=== PATIENT | male | born 1945 | race Caucasian/White ===

== ENCOUNTER → 2017-12-08 06:38 | Outpatient (CLI) | payer MEDICARE, SELFPAY ==
--- NOTE | 2017-12-08 09:33 | STRESSREP ---
Stress Test Report Pharmacologic myocardial perfusion stress test. 72-year-old man with a history of chest pain. Stress protocol: Resting EKG demonstrates sinus bradycardia with a rate of 56 bpm. Resting blood pressure is 140/100 mmHg. 0.4 mg regadenoson was infused per usual protocol followed by rapid intravenous saline flush injection. Continuous EKG monitoring was performed. Patient maintained sinus rhythm throughout the recording. The maximum heart rate attained was 75 bpm which was 50% maximum predicted heart rate. At rest there were no ST or T-wave changes noted suggest abnormal flow reserve at peak infusion no ST or T-wave changes were noted suggest abnormal flow reserve. No clinical angina was noted. Resting blood pressure is 144/100 final blood pressure 164/90 mmHg. Myocardial perfusion protocol: 14.8 mCi of technetium 99m sestamibi was injected at rest. 0.4 mg regadenoson was infused per usual protocol. Peak infusion 45.0 mCi of technetium 99m sestamibi was injected stress images were obtained. Stress and rest images were reconstructed and compared in the short axis vertical long and horizontal long axis. Gated images were also obtained pre- Perfusion SPECT analysis. Review of the stress images demonstrate normal uptake of tracer noted in all areas of the myocardium. The resting images similarly demonstrate normal uptake of tracer noted in all areas of the myocardium. No areas of reversibility are noted suggest ischemia. Gated SPECT analysis. The gated ejection fraction is noted to be 69%. Conclusion: Normal pharmacologic myocardial perfusion stress test. Preserved ejection fraction.
== END ==
PROVIDERS: Family Provider Family Medicine; PCP Family Medicine
DX: R07.89 Other chest pain (principal); I10 Essential (primary) hypertension
CPT/HCPCS: 78452; 93017; A9500; A4216; J2785

== ENCOUNTER 2020-11-28 12:43 | Outpatient (RCR) | payer MEDICARE, SELFPAY ==
[2020-11-28] MEDS: COVID-19 VACC, MRNA(PFIZER)/PF 30 MCG/0.3 ML SYRINGE IM (10:27)
[2020-12-19] MEDS: COVID-19 VACC, MRNA(PFIZER)/PF 30 MCG/0.3 ML SYRINGE IM (10:20)
== END 2021-02-25 23:59 ==
LOC: IMMUN 12:43
PROVIDERS: PCP Family Medicine; Referring Provider Family Medicine; Visit Provider Family Medicine
DX: Z23 Encounter for immunization (principal)
CPT/HCPCS: 0001A; 0002A; 91300

== ENCOUNTER 2022-02-04 12:56 | Inpatient (IN) | payer MEDICARE, SELFPAY ==
[2022-02-04 12:57] VITALS: BP 166/76; PULSE 59; TEMP 36.3; O2SAT 99; BMI 30.6
--- NOTE | 2022-02-04 13:53 | MRI_ITS ---
HISTORY: radiculopathy, low back pain, and right hip pain TECHNIQUE: Multiplanar and multisequence MR images of the lumbar spine were obtained without intravenous contrast. 128 images. COMPARISON: None. FINDINGS: VERTEBRAE: Vertebral body heights maintained. Small hemangioma in the L3 vertebral body. Degenerative endplate changes at multiple levels particularly L4-5. ALIGNMENT: No significant anterior or posterior subluxation. CONUS: Normal morphology and position of the conus at the lower L1 level. INTERVERTEBRAL DISCS: L1-2: No significant posterior disc herniation, central canal stenosis, or foraminal narrowing. L2-3: Minimal disc bulge with facet arthropathy resulting in minimal narrowing of the thecal sac. L3-4: Small left posterior synovial cyst. Mild disc bulge with facet arthropathy resulting in mild central canal stenosis and left foraminal narrowing. L4-5: Small left posterior synovial cyst. Moderate disc bulge with facet arthropathy resulting in moderate central canal stenosis with mild bilateral foraminal narrowing. L5-S1: Mild disc bulge with facet arthropathy resulting in mild central canal stenosis and very mild bilateral foraminal narrowing. SOFT TISSUES: Right posterior paraspinal soft tissue edema at the level of the sacral spine, incompletely imaged. MRI/Spine Lumbar (Routine) IMPRESSION: Multilevel degenerative disc disease with moderate spinal canal stenosis of L4-5 as above. Incompletely imaged soft tissue edema posterior to the right sacrum. Electronically Signed: Catrachita Forbes MD at 16:06 EDT ,
--- NOTE | 2022-02-04 13:57 | ED.VIS.BACK ---
HPI History of Present Illness Chief Complaint: Back Informant: patient and spouse/S.O. Onset/Context/Timing Onset: Weeks Context: Gradual Onset Timing: Continuous Quality: Sharp and Aching Location: Lumbar Current Severity: Moderate Maximum Severity: Severe Worsened by: improves with Movement Relieved by: Nothing Associated Symptoms Associated Symptoms: Radiation to Right Leg; Negative for Numbness, Tingling, Radiation to Left Leg, Fever, Abdominal Pain, Dysuria, Unable to Ambulate, Unable to Transfer, Urinary Retention, Urinary Incontinence, Constipation and Fecal Incontinence Narrative Narrative: 76-year-old male history of chronic back pain sees a interventional pain physician in [facility]. He has had prior injections. 2013 he had an MRI which showed spinal stenosis and arthritic changes. States the pain got worse the last several weeks he has been on a Medrol Dosepak and did not seem to get helping him any. He denies any fever. He denies any bowel or bladder incontinence or retention. Said the pain is worsening and is now going down the right leg all the way down to his heel worse with movement. It is so painful he is unable to walk. Prior similar symptoms: Yes Recent Illness/Hospitalization: No PFSH PFSH Home Medications fexofenadine mg 02/04/22 [History Last Taken Unknown] fluticasone propionate INTRANASAL 02/04/22 [History Last Taken Unknown] labetalol 02/04/22 [History Last Taken Unknown] losartan-hydrochlorothiazide tab 02/04/22 [History Last Taken Unknown] methylprednisolone 02/04/22 [History Last Taken Unknown] nabumetone mg 02/04/22 [History Last Taken Unknown] potassium chloride meq PO 02/04/22 [History Last Taken Unknown] rosuvastatin mg 02/04/22 [History Last Taken Unknown] tramadol mg 02/04/22 [History Last Taken Unknown] Allergy/AdvReac Type Severity Reaction Status Date / Time No Known Allergies Allergy Verified 02/04/22 12:57 Social History Smoking Status: Former smoker ROS ROS ED ROS Narrative Denies recent illness. Back pain. Review of Systems ROS Unobtainable: Denies due to encephalopathy Constitutional Constitutional ED: Denies chills or fever(s) Eyes Eyes: Denies change in vision ENT ENT ED: Denies ear pain Cardiovascular Cardiovascular: Denies chest pain Respiratory/Chest Respiratory/Chest: Denies dyspnea Gastrointestinal Gastrointestinal: Denies abdominal pain, diarrhea, nausea or vomiting Genitourinary Genitourinary ED: Denies dysuria or hematuria Musculoskeletal Musculoskeletal: Reports back pain; Denies myalgias Integumentary Denies rash Neurologic Neurologic: Denies headache(s) Psychiatric Psychiatric: Denies depression Endocrine Endocrinology: Denies polyuria Hematologic/Lymphatic Hematologic/Lymphatic: Denies easy bruising Allergic/Immunologic Allergic/Immunologic ED: Denies urticaria EXAM Physical Exam Narrative Exam Narrative: 76-year-old male no acute distress. Vital signs stable afebrile. H EENT exam unremarkable. Neck nontender no lymphadenopathy. Lungs clear to auscultation bilaterally. Heart regular rhythm no murmur. Abdomen is soft nontender. Moving all 4 extremities. Calves are nontender no edema no cords. Patient has 5/5 provider engagement executive strength. Dorsi plantarflexion intact. Back he has tenderness over his lumbar spine lower and his right SI joint. He is a positive straight leg raise on the right about 30 degrees negative on the left. No cauda equina. No saddle anesthesia. Normal motor strength and sensation. Neurologic exam unremarkable. Const Vital Signs: 02/04/22 12:57 02/04/22 14:31 Temperature 97.4 F L Temperature Source Temporal Pulse Rate 59 L Blood Pressure 166/76 H 171/94 H Blood Pressure Mean 106 119 Pulse Ox 99 Oxygen Delivery Method Room Air Positive well nourished, well developed and obese; Negative for cachectic, contractures or unkempt General Appearance ED: well developed and NAD; Negative for unkempt, cachectic, contractures or pallor Nutritional Appearance: obese; Negative for cachectic HEENT Reports moist mucous membranes Negative for trauma or tenderness Eyes PERRL and EOMs intact bilaterally General Eye ED: Negative for pale conjunctiva or scleral icterus Neck no lymphadenopathy, supple and no JVD General: Negative for tenderness Resp normal respiratory effort and clear to auscultation bilaterally Effort and Inspection: Negative for pain with movement or other Auscultation: Negative for rales or rhonchi Cardio regular rate, regular rhythm, S1 normal heart sound, S2 normal heart sound and no murmurs GI normal to inspection, nondistended, normoactive bowel sounds, soft to palpation, non-tender, non-distended and no masses Palpation: Negative for tender, guarding or rebound tenderness present Back/Spine normal to inspection and no thoracic nor lumbar tenderness Back/Spine Narrative: Lumbar tenderness. Right SI tenderness. Straight leg raise on the right at 30 degrees General Back: Negative for CVA tenderness or scar(s) Cervical Spine: Negative for cervical spine tenderness and Negative for paracervical muscle tenderness Thoracic Spine / Upper Back: Negative for paraspinal muscle tenderness Lumbar Spine / Lower Back: straight leg raise positive right; Negative for straight leg raise negative bilaterally Extremity normal to inspection General Extremety ED: Negative for edema or tenderness General Extremity: Negative for edema Neuro oriented x3 and no sensory deficits noted Sensorium / Orientation: alert; Negative for confused, lethargic or stuporous Motor Exam: strength 5/5 throughout Psych mental status grossly normal Appearance: Negative for unkempt Attitude: No agitated Mood & Affect: Negative for depressed or tearful Skin no rashes or lesions noted and no wounds General Skin Exam: Negative for jaundice or pallor MDM MDM MDM Narrative Medical decision making narrative: 76-year-old male with acute on chronic back pain that is worsening over the last several weeks. Now to the point he cannot walk. He has a right leg radiculopathy about 30 degrees. He will be medicated with morphine and Zofran. MRI scheduled around 3 PM. Repeat exam patient's pain is under control DREZ morphine. He still has significant pain if he moves. He is too uncomfortable to walk. He does have motor strength in both feet he has dorsi and plantar flexion. He has normal sensation in his thighs. He has no cauda equina. He will need to be admitted for pain control and then have a consultation with spine surgery to determine a treatment plan. MRI shows multiple level degenerative disc disease with spinal canal stenosis. Radiography Diagnostic Testing: Clinical Impression(s) from Imaging Studies Lumbar Spine MRI 02/04/22 13:53 IMPRESSION: Multilevel degenerative disc disease with moderate spinal canal stenosis of L4-5 as above. Incompletely imaged soft tissue edema posterior to the right sacrum. Electronically Signed: Catrachita Forbes MD at 16:06 EDT Reading Location ID and State: [facility] / [place] Tel , Service support , Discharge Plan Dx/Rx/DC Orders Clinical Impression: Back pain, Degenerative disc disease, Spinal stenosis Disposition Disposition: Acute Care Hospital [facility]
[2022-02-04] MEDS: morphine 8 MG/ML Syringe IV (14:27)
[2022-02-04] MEDS: Ondansetron 4 MG/2 ML Vial IV (14:27)
[2022-02-04 14:31] VITALS: BP 171/94
[2022-02-04 17:04] VITALS: BP 184/97; PULSE 65
--- NOTE | 2022-02-04 17:24 | PCM.HP.STD ---
Documented by User: Abilio CODY 02/04/22 17:51 HPI - General General Date of Admission: 02/04/22 Date of Service: 02/04/22 Chief Complaint: Intractable back pain HPI Narrative QUINTIN ALBRIGHT is a 76-year-old male who presents to the ED at [facility] on 02/04/2022 with a chief complaint of intractable back pain. Patient has had a history of spinal stenosis since 2013, for which she follows with his plate painter apprentice Dr. Soares. Patient was evaluated by a a surgeon at the time of his initial diagnosis, and was determined not to need surgery at that time and that pain management would suffice. Patient follows with his plate painter apprentice for periodic spinal injections, as well as taking nabumetone, methylprednisolone and tramadol at home. Patient reports that this has been his chronic pain regimen for a while and that usually it works at managing his pain. Patient reports that about mid December he has had progressively worsening back pain, which has progressed to the point where he cannot walk today. Patient denies any difficulties with urination or defecation. Patient denies any saddle anesthesia. Patient does have normal sensation and motor strength in the lower extremities bilaterally, but does have positive straight leg raise on the right. Straight leg raise negative on the left. Vital signs stable and patient is afebrile. MRI obtained in ED demonstrated multilevel degenerative disease with moderate spinal canal stenosis of L4-L5. [facility] Medical History (Updated 02/04/22 @ 17:39 by Abilio CODY) Carpal tunnel syndrome Former smoker GERD (gastroesophageal reflux disease) Hypertension Irregular heart beat Osteoarthritis Spinal stenosis at L4-L5 level Home Medications fexofenadine 180 mg PO DAILY 02/04/22 [History Last Taken 02/04/22] fluticasone propionate 1 spray INTRANASAL DAILY 02/04/22 [History Last Taken 02/04/22] labetalol 100 mg PO BID 02/04/22 [History Last Taken 02/04/22] losartan-hydrochlorothiazide 1 tab PO DAILY 02/04/22 [History Last Taken 02/04/22] methylprednisolone 4 02/04/22 [History Last Taken 02/04/22] nabumetone 750 mg PO DAILY 02/04/22 [History Last Taken 02/04/22] ondansetron HCl 4 mg PO Q8H PRN PRN 02/04/22 [History Last Taken 02/04/22] potassium chloride 20 meq PO DAILY 02/04/22 [History Last Taken 02/04/22] rosuvastatin 5 mg PO QHS 02/04/22 [History Last Taken 02/03/22] tramadol 50 mg PO Q8H PRN PRN 02/04/22 [History Last Taken 02/04/22] Allergy/AdvReac Type Severity Reaction Status Date / Time No Known Allergies Allergy Verified 02/04/22 12:57 Family History Father Diabetes Mother Dementia Aneurysm Sister Diabetes Surgical History (Updated 02/04/22 @ 17:39 by Abilio CODY) H/O abdominal surgery History of carpal tunnel surgery Social History (Updated 02/04/22 @ 17:40 by Abilio CODY) Smoking Status: Former smoker alcohol intake: former substance use type: does not use ROS Constitutional Constitutional: Denies anorexia, change in weight, chills, fatigue, fever(s), malaise, night sweats, weakness or other Eyes Eyes: Denies blurry vision, change in eye color, change in vision, discharge from eye(s), double vision, erythema, eye pain, loss of vision or other ENT HEENT: Denies abnormal hearing, dysphagia, ear pain, epistaxis, headache(s), hearing loss, nasal congestion, nasal discharge, post nasal drip, sinus pressure, sore throat or other Cardiovascular Cardiovascular: Denies chest pain, claudication, dyspnea on exertion, edema, lightheadedness, orthopnea, palpitations, paroxysmal nocturnal dyspnea, rapid heart rate, syncope or other Respiratory/Chest Respiratory/Chest: Denies cough, dyspnea, excessive phlegm production, hemoptysis, productive cough, shortness of breath at rest, shortness of breath with exertion, wheezing or other Gastrointestinal Gastrointestinal: Denies abdominal pain, coffee ground emesis, constipation, diarrhea, dyspepsia, hematemesis, hematochezia, loose stools, melena, nausea, vomiting or other Genitourinary Genitourinary: Denies burning urination, difficulty urinating, dysuria, hematuria, nocturia, urinary frequency, urinary hesitancy, urinary incontinence, urinary urgency or other Musculoskeletal Musculoskeletal: Reports back pain and joint stiffness; Denies arthralgias, joint pain, joint swelling, myalgias, neck pain or other Neurologic Neurologic: Denies abnormal gait, abnormal speech, confusion, disequilibrium, dizziness, focal weakness, headache(s), numbness, paresthesias, seizure-like activity, seizures, syncope, tingling, tremor(s) or other Psychiatric Psychiatric: Denies anxiety, depression, homicidal ideation, suicidal ideation or other Endocrine Endocrinology: Denies change in body appearance, cold intolerance, excessive sweating, heat intolerance, polydipsia, polyuria or other Hematologic/Lymphatic Hematologic/Lymphatic: Denies anemia, easy bleeding, easy bruising, lymphadenopathy or other Allergic/Immunologic Allergic/Immunologic: Denies rhinitis, hives, eczemia, asthma or other Vital Signs Vital Signs Vital Signs: 02/04/22 12:57 02/04/22 14:31 02/04/22 17:04 Temperature 97.4 F L Temperature Source Temporal Pulse Rate 59 L 65 Blood Pressure 166/76 H 171/94 H 184/97 H Blood Pressure Mean 106 119 126 Pulse Ox 99 Oxygen Delivery Method Room Air Weight Weight: 213 lb 10.047 oz Body Mass Index (BMI) 30.6 Physical Exam Const alert and oriented x3 General Appearance: cooperative HEENT normocephalic, head/scalp atraumatic and hearing grossly normal bilaterally Eyes PERRL, EOMs intact bilaterally and conjunctivae normal Neck no lymphadenopathy, supple and no JVD Resp normal respiratory effort, no retractions and no use of accessory muscles Cardio regular rate, regular rhythm and no JVD GI normal to inspection, nondistended, normoactive bowel sounds and soft to palpation Extremity Extremity Narrative: Onset of straight leg raise on the right, negative on the left. Skin no rashes or lesions noted, no wounds and skin turgor normal Neuro CN's II-XII intact bilaterally Neuro Narrative: Normal sensation and motor strength on the lower extremities bilaterally. Psych affect normal Results Radiology Impression Lumbar Spine MRI 02/04/22 13:53 IMPRESSION: Multilevel degenerative disc disease with moderate spinal canal stenosis of L4-5 as above. Incompletely imaged soft tissue edema posterior to the right sacrum. Electronically Signed: Catrachita Forbes MD at 16:06 EDT , Assessment & Plan Assessment/Plan (1) Back pain: (2) Degenerative disc disease: (3) Lumbar disc herniation: (4) Spinal stenosis: PLAN: Patient is a 76-year-old male who presented to the ED at [facility] on 02/04/2022 with a chief complaint of intractable back pain. Patient will be admitted for evaluation and management of spinal stenosis. 1) intractable back pain/L4-L5 spinal stenosis Has been managed by Dr. Soares of [facility] since 2013 for L4-L5 spinal stenosis. Usually managed well with spinal injections and at home regimen,, although for the past 6 weeks back pain has gotten progressively worse. Presents to ED today with inability to walk. MRI of the lumbar spine demonstrates multilevel degenerative disease with moderate spinal canal stenosis of L4-L5. Plan; admit to [facility], consult Dr. Curran, initiate Tylenol, initiate gabapentin, initiate Toradol, initiate lidocaine patch, initiate as needed medications to include: Medrol Dosepak, morphine, oxycodone, Restoril, Zanaflex, CBC and CMP in a.m., PT/OT eval ordered, case management consult ordered. 2) HTN Elevated, continue home labetalol and losartan/hydrochlorothiazide. As needed hydralazine ordered. 3) hyperlipidemia Continue statin. 4) seasonal allergies Continue fexofenadine and fluticasone propionate. CODE STATUS: Full code DVT prophylaxis: Lovenox Patient seen by Abilio Mata PA-C, under the supervision of Dr. Mitchell. Time spent in patient care: 25 minutes. Documented by User: Dr. Kavita Mitchell MD 02/04/22 18:16 HPI - General General Date of Admission: 02/04/22 [facility] Medical History (Updated 02/04/22 @ 17:39 by Abilio CODY) Carpal tunnel syndrome Former smoker GERD (gastroesophageal reflux disease) Hypertension Irregular heart beat Osteoarthritis Spinal stenosis at L4-L5 level Home Medications fexofenadine 180 mg PO DAILY 02/04/22 [History Last Taken 02/04/22] fluticasone propionate 1 spray INTRANASAL DAILY 02/04/22 [History Last Taken 02/04/22] labetalol 100 mg PO BID 02/04/22 [History Last Taken 02/04/22] losartan-hydrochlorothiazide 1 tab PO DAILY 02/04/22 [History Last Taken 02/04/22] methylprednisolone 4 02/04/22 [History Last Taken 02/04/22] nabumetone 750 mg PO DAILY 02/04/22 [History Last Taken 02/04/22] ondansetron HCl 4 mg PO Q8H PRN PRN 02/04/22 [History Last Taken 02/04/22] potassium chloride 20 meq PO DAILY 02/04/22 [History Last Taken 02/04/22] rosuvastatin 5 mg PO QHS 02/04/22 [History Last Taken 02/03/22] tramadol 50 mg PO Q8H PRN PRN 02/04/22 [History Last Taken 02/04/22] Allergy/AdvReac Type Severity Reaction Status Date / Time No Known Allergies Allergy Verified 02/04/22 12:57 Family History Father Diabetes Mother Dementia Aneurysm Sister Diabetes Surgical History (Updated 02/04/22 @ 17:39 by Abilio CODY) H/O abdominal surgery History of carpal tunnel surgery Social History (Updated 02/04/22 @ 17:40 by Abilio CODY) Smoking Status: Former smoker alcohol intake: former substance use type: does not use
[2022-02-04] MEDS: Morphine 2 MG/ML Syringe IV (17:52)
[2022-02-04 17:53] VITALS: BP 168/110; PULSE 76; RESP 14; TEMP 36.8; O2SAT 99
[2022-02-04] MEDS: 0.9% Normal Saline 1,000 ML 100 ML IV (20:00)
[2022-02-04] MEDS: 0.9% Saline Lock 10 ML Syringe IV (21:36)
[2022-02-04] MEDS: Ketorolac 15 MG/ML Vial IV (21:37)
[2022-02-04 21:54] LABS: Absolute Lymphocyte Count 0.82 X10^3/uL (0.83-4.51); Absolute Neutrophil Count 8.5 X10^3/uL (2.0-7.7); Basophil# 0.02 X10^3/uL; Basophil% 0.2 % (0-1); Hematocrit 42.9 % (40-54); Hemoglobin 14.9 g/dL (13.0-16.5); Lymphocyte # 0.82 X10^3/ul (0.83-4.51); Lymphocyte % 8.1 % (19-41); Mean Corp Hgb Conc 34.7 g/dL (32-36); Mean Corpuscular Hgb 29.5 pg (27.0-32.0); Mean Platelet Vol. 9.4 fl (6.2-12.0); Monocyte# 0.68 X10^3/uL; Monocyte% 6.7 % (0-10); NRBC Flagged by Analyzer 0 % (0-5); Neutrophil # 8.54 X10^3/uL (2.7-7.7); Neutrophil % 84.4 % (47-70); Platelet Count 301 K/mm3 (150-450); RBC Distribution Width CV 11.9 % (11.6-14.6); RBC Distribution Width SD 35.9 fl (35.1-43.9); Red Blood Count 5.05 M/mm3 (4.6-6.2); White Blood Count 10.1 K/mm3 (4.4-11.0)
[2022-02-04 22:09] LABS: ALB/GLOB Ratio 1.2 RATIO (0.9-2.4); AST(SGOT) 25 U/L (15-37); Alanine Aminotransfer ALT/SGPT 81 U/L (16-61); Albumin, Serum 3.6 g/dL (3.2-5.0); Alkaline Phosphatase 85 U/L (45-117); Anion Gap 4 (5-15); BUN 22 mg/dL (7-18); BUN/Creat Ratio 23.7 RATIO (10-20); Calcium,Total 9.4 mg/dL (8.5-10.1); Chloride 106 mmol/L (98-107); Creatinine, Serum 0.93 mg/dL (0.70-1.30); EST Glomerular Filtration Rate 85 mL/min (>60); Est Glom Filt Rate - Afr Amer 102 mL/min (>60); Estimated Creatinine Clearance 71.95 ml/min; Glucose 128 mg/dL (74-106); Potassium 3.9 mmol/L (3.5-5.1); Protein, Total 6.6 g/dL (6.4-8.2); Sodium Level 141 mmol/L (136-145)
[2022-02-04] MEDS: MethylPREDNISolone DosePak 4 MG BOX PO (23:14)
[2022-02-05] MEDS: oxyCODONE 5 MG Tablet PO ×2 (01:05→10:43)
[2022-02-05] MEDS: tiZANidine HCl 2 MG Tablet PO ×3 (01:06→20:15)
[2022-02-05] MEDS: Acetaminophen 325 MG Tablet 650 MG PO ×2 (01:06→10:43)
[2022-02-05 04:23] VITALS: BP 156/83; PULSE 64; RESP 16; TEMP 36.8; O2SAT 96
[2022-02-05] MEDS: Ketorolac 15 MG/ML Vial IV ×3 (05:11→22:00)
[2022-02-05 05:31] LABS: Absolute Lymphocyte Count 0.59 X10^3/uL (0.83-4.51); Absolute Neutrophil Count 8.1 X10^3/uL (2.0-7.7); Basophil# 0.02 X10^3/uL; Basophil% 0.2 % (0-1); Hematocrit 40.7 % (40-54); Hemoglobin 14.1 g/dL (13.0-16.5); Lymphocyte # 0.59 X10^3/ul (0.83-4.51); Lymphocyte % 6.6 % (19-41); Mean Corp Hgb Conc 34.6 g/dL (32-36); Mean Corpuscular Hgb 29.1 pg (27.0-32.0); Mean Corpuscular Volume 84.1 fL (80-94); Mean Platelet Vol. 9.6 fl (6.2-12.0); Monocyte# 0.27 X10^3/uL; NRBC Flagged by Analyzer 0 % (0-5); Neutrophil # 8.05 X10^3/uL (2.7-7.7); Neutrophil % 89.6 % (47-70); POSITIVE DIFFERENTIAL YES; Platelet Count 278 K/mm3 (150-450); RBC Distribution Width CV 11.9 % (11.6-14.6); Red Blood Count 4.84 M/mm3 (4.6-6.2)
[2022-02-05 05:42] LABS: Differential Indicated SCAN CRITERIA MET
[2022-02-05 06:13] LABS: ALB/GLOB Ratio 1.2 RATIO (0.9-2.4); AST(SGOT) 36 U/L (15-37); Alanine Aminotransfer ALT/SGPT 89 U/L (16-61); Albumin, Serum 3.3 g/dL (3.2-5.0); Alkaline Phosphatase 75 U/L (45-117); Anion Gap 3 (5-15); BUN 25 mg/dL (7-18); BUN/Creat Ratio 27.2 RATIO (10-20); Calcium,Total 8.8 mg/dL (8.5-10.1); Chloride 106 mmol/L (98-107); Creatinine, Serum 0.92 mg/dL (0.70-1.30); EST Glomerular Filtration Rate 85 mL/min (>60); Est Glom Filt Rate - Afr Amer 103 mL/min (>60); Estimated Creatinine Clearance 72.74 ml/min; Globulin 2.8 g/dL (2.2-4.2); Glucose 137 mg/dL (74-106); Potassium 4.1 mmol/L (3.5-5.1); Protein, Total 6.1 g/dL (6.4-8.2); Sodium Level 139 mmol/L (136-145)
[2022-02-05] MEDS: MethylPREDNISolone DosePak 4 MG BOX PO ×4 (08:19→21:59)
[2022-02-05] MEDS: Lidocaine 5% Patch 2 PATCH TOPICAL (08:20)
[2022-02-05] MEDS: Enoxaparin 40 MG/0.4 ML Syringe SC (08:20)
[2022-02-05] MEDS: Gabapentin 100 MG Capsule PO ×3 (08:25→16:37)
--- NOTE | 2022-02-05 09:26 | PCM.PN.HOSP ---
Documented by User: Josie Martin NP-C 02/05/22 09:35 Subjective Subjective Seen and examined. Patient continues to report pain despite pain medication regimen. Awaiting Dr. Curran to see patient for further evaluation for possible surgical needs. Patient states that he is not as uncomfortable as long as he is laying flat and does not move a lot. Objective Data Objective Data Vital Signs: Vital Signs Temp Pulse Resp BP Pulse Ox 98.2 F 64 16 156/83 H 96 02/05/22 04:23 02/05/22 04:23 02/05/22 04:23 02/05/22 04:23 02/05/22 04:23 Oxygen Delivery Method Room Air Weight: 209 lb 10.554 oz Body Mass Index (BMI) 30.0 Intake & Output: Intake and Output for Last 24 Hours 02/03/22 02/04/22 02/05/22 23:59 23:59 23:59 Intake Total 950 / 950 Output Total 500 / 500 Balance -500 / -500 950 / 950 Lab / Micro Data Result Diagrams: 02/05/22 04:57 02/05/22 04:57 Labs: Laboratory Results - last 24 hr 02/04/22 21:30: WBC 10.1, RBC 5.05, Hgb 14.9, Hct 42.9, MCV 85.0, MCH 29.5, MCHC 34.7, RDW Std Deviation 35.9, RDW Coeff of [place] 11.9, Plt Count 301, MPV 9.4, Immature Gran % (Auto) 0.600, Neut % (Auto) 84.4 H, Lymph % (Auto) 8.1 L, [place] % (Auto) 6.7, Eos % (Auto) 0.0, Baso % (Auto) 0.2, Absolute Neuts (auto) 8.5 H, Absolute Lymphs (auto) 0.82 L, Nucleated RBC % 0 02/04/22 21:30: Sodium 141, Potassium 3.9, Chloride 106, Carbon Dioxide 31.0, Anion Gap 4 L, BUN 22 H, Creatinine 0.93, Estim Creat Clear Calc 71.95, Est GFR (MDRD) Af Amer 102, Est GFR (MDRD) Non-Af 85, BUN/Creatinine Ratio 23.7 H, Glucose 128 H, Calcium 9.4, Total Bilirubin 0.70, AST 25, ALT 81 H, Alkaline Phosphatase 85, Total Protein 6.6, Albumin 3.6, Globulin 3.0, Albumin/Globulin Ratio 1.2 02/05/22 04:57: WBC 9.0, RBC 4.84, Hgb 14.1, Hct 40.7, MCV 84.1, MCH 29.1, MCHC 34.6, RDW Std Deviation 36.0, RDW Coeff of [place] 11.9, Plt Count 278, MPV 9.6, Immature Gran % (Auto) 0.600, Neut % (Auto) 89.6 H, Lymph % (Auto) 6.6 L, [place] % (Auto) 3.0, Eos % (Auto) 0.0, Baso % (Auto) 0.2, Absolute Neuts (auto) 8.1 H, Absolute Lymphs (auto) 0.59 L, Nucleated RBC % 0 02/05/22 04:57: Sodium 139, Potassium 4.1, Chloride 106, Carbon Dioxide 30.0, Anion Gap 3 L, BUN 25 H, Creatinine 0.92, Estim Creat Clear Calc 72.74, Est GFR (MDRD) Af Amer 103, Est GFR (MDRD) Non-Af 85, BUN/Creatinine Ratio 27.2 H, Glucose 137 H, Calcium 8.8, Total Bilirubin 0.50, AST 36, ALT 89 H, Alkaline Phosphatase 75, Total Protein 6.1 L, Albumin 3.3, Globulin 2.8, Albumin/Globulin Ratio 1.2 Radiography Diagnostic Testing: Radiology Impression Lumbar Spine MRI 02/04/22 13:53 IMPRESSION: Multilevel degenerative disc disease with moderate spinal canal stenosis of L4-5 as above. Incompletely imaged soft tissue edema posterior to the right sacrum. Electronically Signed: Catrachita Forbes MD at 16:06 EDT , Physical Exam Const alert, oriented x3 and no apparent distress HEENT head/scalp atraumatic and moist oral mucous membranes Head and Scalp: normocephalic Eyes conjunctivae normal and no scleral icterus Neck supple Resp normal respiratory effort and clear to auscultation bilaterally Effort and Inspection: able to speak in complete sentences and symmetric chest movement Cardio regular rate, regular rhythm, S1 normal heart sound and S2 normal heart sound GI normal to inspection, nondistended, normoactive bowel sounds, soft to palpation and non-tender Extremity normal to inspection and normal capillary refill Peripheral Pulses: Yes pulses 2+ throughout Neuro oriented x3, no focal motor deficits and no sensory deficits noted Neuro Narrative: Patient has positive right straight leg raise Speech: speech normal Assessment & Plan Assessment/Plan (1) Back pain: QUALIFIERS: Back pain laterality: right Back pain location: low back pain Chronicity: chronic Sciatica laterality: sciatica of right side Sciatica presence: with sciatica Qualified Code(s): M54.41 - Lumbago with sciatica, right side; G89.29 - Other chronic pain (2) Degenerative disc disease: QUALIFIERS: Spinal region: lumbosacral Qualified Code(s): M51.37 - Other intervertebral disc degeneration, lumbosacral region (3) Spinal stenosis: QUALIFIERS: Neurogenic claudication status: unspecified Spinal region: lumbar Qualified Code(s): M48.061 - Spinal stenosis, lumbar region without neurogenic claudication PLAN: 1. Intractable back pain secondary to L4-L5 spinal stenosis -Continue Tylenol, gabapentin, Toradol, lidocaine patch, Medrol Dosepak scheduled along with as needed morphine, oxycodone, Restoril, Zanaflex for pain management -Patient continues to report pain, states lidocaine patches were just applied -Dr. Curran consulted -CBC and CMP daily -PT and OT to eval and treat 2. Hypertension elevated likely secondary to pain -Continue home labetalol and losartan/hydrochlorothiazide. -As needed hydralazine ordered 3. Hyperlipidemia -Continue statin DVT prophylaxis-Lovenox This patient was seen by Josie Martin NP-C under the supervision of Dr. Mayers. 12 minutes spent in clinical coordination of patient's plan of care. Documented by User: Dr. Vahe Mayers MD 02/05/22 11:51 Subjective Subjective Patient has history of chronic back pain, lumbar spinal stenosis primarily L4-L5 with radiation to the right lower extremity to right great toe. He complained of 10 out of 10 pain get exacerbated by movement, rotation of his spine flexion or extension. He is to walk from 1 room to another with support. Currently 04/29. He has been getting spinal injections from pain management for last [address] Curran is consulted Objective Data Lab / Micro Data Result Diagrams: 02/05/22 04:57 02/05/22 04:57 Physical Exam Narrative Patient has history of one-time transient A. fib. General: Alert, Oriented x3, Cooperative, in moderate to severe pain HEENT: Atraumatic, PERRLA, EOMI, Normocephalic Oral: No Gingival or Mucosal Lesions/ Ulcerations Neck: Supple, No JVD, Negative Carotid Bruits Lungs: Air entry diminished in bilateral lung bases. No crepitation/rhonchi Cardiovascular: Regular rate, Regular Rhythm, Normal S1, Normal S2, No murmurs Abdomen: Bowel Sounds Present, Soft, Non Tender, Non-Distended : No renal angle tenderness. No suprapubic tenderness. Extremities: No edema, Capillary Refill Less than 3 Seconds Skin: No rashes, No breakdown Musculoskeletal/spine: Tenderness over L4-L5. Painful movement of lateral rotation flexion or extension. Pain distribution over right L4 nerve distribution. Right lower extension, flexion, right ankle flexion extension inversion eversion 4+/5. Right knee and hip extension 4/5 mainly due to pain and back spasm Neurological: Cranial nerves II-XII grossly intact, DTR 2+/4 Psych/Mental Status: Flat affect. Assessment & Plan Assessment/Plan (1) Back pain: QUALIFIERS: Back pain laterality: right Back pain location: low back pain Chronicity: chronic Sciatica laterality: sciatica of right side Sciatica presence: with sciatica Qualified Code(s): M54.41 - Lumbago with sciatica, right side; G89.29 - Other chronic pain (2) Spinal stenosis: QUALIFIERS: Neurogenic claudication status: unspecified Spinal region: lumbar Qualified Code(s): M48.061 - Spinal stenosis, lumbar region without neurogenic claudication PLAN: This patient was seen in conjunction with MERCY Galindo. I have independently interviewed and examined the patient and reviewed pertinent history, examination findings, laboratory and plan of management. I have reviewed the note and agree with the documented findings with the few additional points. In brief, patient is admitted for acute on chronic lumbar spine pain, sciatica type with radiation to right lower extremity, to right great toe, over L L4-L5 nerve distribution; failed conservative management spine injection and oral pain medications. Lumbar MRI reviewed. 8 shows multilevel disc changes with moderate spinal canal stenosis at L4-L5 level with multilevel degenerative disc disease. Spine surgeon Dr. Curran is consulted. Hypertension: Patient on high dose of antihypertensive medication, losartan HCTZ 100-12.5 mg daily. Currently blood pressure is in 120s therefore losartan 25 mg ordered. Other comorbidities as mentioned above dyslipidemia Patient states he has transient A. fib but is not on any anticoagulant. Dyslipidemia I have discussed my assessment with MERCY Galindo and orders have been reviewed. Clinical Impression(s) from Imaging Studies Lumbar Spine MRI 02/04/22 13:53 IMPRESSION: Multilevel degenerative disc disease with moderate spinal canal stenosis of L4-5 as above. Incompletely imaged soft tissue edema posterior to the right sacrum. Electronically Signed: Catrachita Forbes MD at 16:06 EDT , Charges/Coding Visit Charges Inpatient E&M: 49312 Subs Hosp L2
[2022-02-05 10:23] VITALS: BP 140/72; PULSE 74; RESP 18; TEMP 36.6; O2SAT 94
--- NOTE | 2022-02-05 11:38 | CASEMGMT ---
BARON RICKS Assessment: Face to Face with pt for initial transition planning/care coordination assessment. RN CM introduced self and role at [facility], pt voices understanding and consents to assessment. Pt is A/O x4 and answers all questions appropriately at this time. Pt lying in bed writhing in pain. Pt at bedside. Care providers, pharmacy, and demographics verified/updated. Admitting Dx: acute intractable back pain PCP:Geovanny Specialists:Rodger, pain mgmt; Rola Rosas cardio at [facility] Preferred Pharmacy: [facility] Insurance: [employer] Prescription Benefit: yes LW/HPOA: Pt denies having a LW/DPOA and denies need for info regarding AD. LNOK: [place] Blough, Living Arrangements: Pt lives with in a single story house with 2 steps to enter with a rail. Pt reports he was I in ADL's prior to this hospitalization. Pt denies concerns at home. Transportation: Pt drives self and denies concerns with transportation. DME/HHC/SNF: Pt has a rollator at home but does not use. Pt denies hx of HHC or SNF stays. Pt states no concerns with going home at time of dc if he is able to walk, stand, etc. CM to follow after 's consult and plan has been established. Advised pt to ask CM if any further question/concerns/needs arise, voices understanding. Pt and pt asks for pt medical records to be faxed to at [facility]. . Pt Goal: TBD Plan: TBD
[2022-02-05] MEDS: Losartan Potassium 25 MG Tablet PO (12:12)
[2022-02-05] MEDS: Pantoprazole Sodium 40 MG Tablet PO (12:12)
[2022-02-05] MEDS: Morphine 2 MG/ML Syringe IV ×4 (12:27→23:42)
[2022-02-05] MEDS: 0.9% Saline Lock 10 ML Syringe IV ×3 (12:28→16:38)
[2022-02-05] MEDS: Ondansetron 4 MG/2 ML Vial IV (12:35)
[2022-02-05] MEDS: Potassium Chloride Oral Tablet 20 MEQ PO (16:20)
[2022-02-05] MEDS: Labetalol 100 MG Tablet PO ×2 (16:20→22:00)
[2022-02-05 16:26] VITALS: BP 158/76; PULSE 58; RESP 18; TEMP 36.7; O2SAT 95
--- NOTE | 2022-02-05 18:41 | NURSING ---
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
[2022-02-05 20:11] VITALS: BP 179/86; PULSE 65
[2022-02-05] MEDS: hydrALAZINE 20 MG/ML Vial 10 MG IV (20:11)
[2022-02-05] MEDS: Atorvastatin Calcium 10 MG Tablet PO (22:00)
[2022-02-05 22:30] VITALS: BP 143/66; PULSE 63; RESP 18; TEMP 36.6; O2SAT 96
[2022-02-06] VITALS (12 sets, daily range): BP systolic 149–167; BP diastolic 78–90; PULSE 51–66; RESP 16–18; TEMP 36.7–37.1; O2SAT 94–97
[2022-02-06] MEDS: Morphine 2 MG/ML Syringe IV ×3 (04:39→18:41)
[2022-02-06] MEDS: Ketorolac 15 MG/ML Vial IV (05:59)
[2022-02-06] MEDS: MethylPREDNISolone DosePak 4 MG BOX PO ×4 (08:47→23:22)
[2022-02-06] MEDS: Pantoprazole Sodium 40 MG Tablet PO (08:48)
[2022-02-06] MEDS: Lidocaine 5% Patch 2 PATCH TOPICAL (08:49)
[2022-02-06] MEDS: Gabapentin 100 MG Capsule PO ×3 (08:54→16:35)
[2022-02-06] MEDS: tiZANidine HCl 2 MG Tablet PO ×2 (08:54→23:32)
[2022-02-06] MEDS: oxyCODONE 5 MG Tablet PO ×3 (08:55→23:32)
[2022-02-06] MEDS: Potassium Chloride Oral Tablet 20 MEQ PO (08:55)
[2022-02-06] MEDS: hydroCHLOROthiazide 12.5mg 12.5 MG PO (08:55)
--- NOTE | 2022-02-06 09:21 | PN.HOSP_ITS ---
Documented by User: ALEX Pena 02/06/22 09:26 Subjective Subjective Patient seen and examined. Patient lying in bed no distress noted. Patient states that his pain is more manageable today than yesterday however he continues to have pain with movement. Objective Data Objective Data Vital Signs: Vital Signs Temp Pulse Resp BP Pulse Ox 98.8 F 65 18 160/85 H 95 02/06/22 04:41 02/06/22 04:41 02/06/22 04:41 02/06/22 04:41 02/06/22 04:41 Oxygen Delivery Method Room Air Weight: 209 lb 10.554 oz Body Mass Index (BMI) 30.0 Intake & Output: Intake and Output for Last 24 Hours 02/04/22 02/05/22 02/06/22 23:59 23:59 23:59 Intake Total 1730 / 2530 800 / 800 Output Total 500 / 500 900 / 1800 1300 / 1300 Balance -500 / -500 830 / 730 -500 / -500 Lab / Micro Data Result Diagrams: 02/05/22 04:57 02/05/22 04:57 Physical Exam Const alert, oriented x3 and no apparent distress General Appearance: cooperative HEENT normocephalic and head/scalp atraumatic Eyes conjunctivae normal and no scleral icterus Neck no lymphadenopathy and supple General: trachea midline Resp normal respiratory effort, no use of accessory muscles and clear to auscultation bilaterally Effort and Inspection: able to speak in complete sentences and symmetric chest movement Cardio regular rate, regular rhythm, S1 normal heart sound and S2 normal heart sound GI normal to inspection, nondistended, normoactive bowel sounds, soft to palpation and non-tender Extremity normal to inspection and normal capillary refill Extremity Narrative: Positive straight leg raise on the right, negative on the left. Skin no rashes or lesions noted, no wounds and skin turgor normal Neuro oriented x3, no focal motor deficits and no sensory deficits noted Neuro Narrative: Patient has positive right straight leg raise Speech: speech normal Psych affect normal Assessment & Plan Assessment/Plan (1) Back pain: QUALIFIERS: Back pain laterality: right Back pain location: low back pain Chronicity: chronic Sciatica laterality: sciatica of right side Sciatica presence: with sciatica Qualified Code(s): M54.41 - Lumbago with sciatica, right side; G89.29 - Other chronic pain (2) Spinal stenosis: QUALIFIERS: Neurogenic claudication status: unspecified Spinal region: lumbar Qualified Code(s): M48.061 - Spinal stenosis, lumbar region without neurogenic claudication PLAN: 1. Intractable back pain secondary to L4-L5 spinal stenosis -Continue Tylenol, gabapentin, Toradol, lidocaine patch, Medrol Dosepak scheduled along with as needed morphine, oxycodone, Restoril, Zanaflex for pain management -Patient continues to report pain however reports that it is more manageable than yesterday -Dr. Curran consulted, will see patient today around 12 -PT and OT following 2. Hypertension elevated likely secondary to pain -Continue home labetalol and losartan/hydrochlorothiazide. -As needed hydralazine ordered 3. Hyperlipidemia -Continue statin DVT prophylaxis-Lovenox This patient was seen by Josie Martin NP-C under the supervision of Dr. Mayers. 10 minutes spent in clinical coordination of patient's plan of care. Documented by User: Dr. Vahe Mayers MD 02/06/22 11:55 Subjective Subjective Patient continued to have back pain although slightly better on pain medication. Objective Data Lab / Micro Data Result Diagrams: 02/05/22 04:57 02/05/22 04:57 Physical Exam Narrative Patient has history of one-time transient A. fib. General: Alert, Oriented x3, Cooperative, in moderate to severe pain HEENT: Atraumatic, PERRLA, EOMI, Normocephalic Oral: No Gingival or Mucosal Lesions/ Ulcerations Neck: Supple, No JVD, Negative Carotid Bruits Lungs: Air entry diminished in bilateral lung bases. No crepitation/rhonchi Cardiovascular: Regular rate, Regular Rhythm, Normal S1, Normal S2, No murmurs Abdomen: Bowel Sounds Present, Soft, Non Tender, Non-Distended : No renal angle tenderness. No suprapubic tenderness. Extremities: No edema, Capillary Refill Less than 3 Seconds Skin: No rashes, No breakdown Musculoskeletal/spine: Tenderness and muscle spasm over L4-L5 and right buttock over right ischial spine. Painful movement of lateral rotation flexion or extension. Pain distribution over right L4 nerve distribution. Right lower ex tension, flexion, right ankle flexion extension inversion eversion 4+/5. Right knee and hip extension 4/5 mainly due to pain and back spasm Neurological: Cranial nerves II-XII grossly intact, DTR 2+/4 Psych/Mental Status: Flat affect. Assessment & Plan Assessment/Plan (1) Spinal stenosis: QUALIFIERS: Neurogenic claudication status: unspecified Spinal region: lumbar Qualified Code(s): M48.061 - Spinal stenosis, lumbar region without neurogenic claudication PLAN: This patient was seen in conjunction with MERYC Galindo. I have independently interviewed and examined the patient and reviewed pertinent history, examination findings, laboratory and plan of management. I have reviewed the note and agree with the documented findings with the few additional points. In brief, patient is admitted for acute on chronic lumbar spine pain, sciatica type with radiation to right lower extremity, to right great toe, over L L4-L5 nerve distribution; failed conservative management spine injection and oral pain medications. Lumbar MRI reviewed. 8 shows multilevel disc changes with modera te spinal canal stenosis at L4-L5 level with multilevel degenerative disc disease. Spine surgeon Dr. Curran is consulted. 02/06: Dr. Curran has not yet seen the patient. He is going to see in afternoon today. The patient has questions about operative management. Hypertension: Patient on high dose of antihypertensive medication, losartan HCTZ 100-12.5 mg daily. Currently blood pressure is in 120s therefore losartan 25 mg ordered. 02/06: Blood pressure systolic 150s. Increase losartan to 50 mg daily. Patient on labetalol 100 mg twice daily and losartan increased 200 mg daily. Other comorbidities as mentioned above dyslipidemia Patient states he has transient A. fib but is not on any anticoagulant. Dyslipidemia I have discussed my assessment with MERCY Galindo and orders have been reviewed. Charges/Coding Visit Charges Inpatient E&M: 10561 Subs Hosp L2
[2022-02-06] MEDS: Losartan Potassium 100 MG Tablet PO (10:05)
[2022-02-06] MEDS: Labetalol 100 MG Tablet PO ×2 (10:05→23:20)
--- NOTE | 2022-02-06 10:10 | CASEMGMT ---
BARON RICKS in to discuss VALDEZ form with patient. at bedside. RN CM explained VALDEZ form, patient/ voiced understanding. Pt with many questions. All questions answered to pt and satisfaction. Pt signed form and filed in chart. Pt provided with a copy of signed VALDEZ form.
[2022-02-06] MEDS: 0.9% Saline Lock 10 ML Syringe IV ×4 (12:00→23:46)
[2022-02-06] MEDS: Lactated Ringers 1,000 ML 30 ML IV (14:05)
--- NOTE | 2022-02-06 14:07 | CON.PCM_ITS ---
Consult Date of Consult: 02/06/22 Reason for Consult Mr. Eldridge is seen at the request of his hospitalist and with the patient's permission. He has been in the hospital since the but his pain became intractable and they had to admit him. He has had low back pain for a number of years. He even has a pain medicine management doctor that takes care of him I believe in [place]. The last time that an epidural was done however it did not help him. His pain gradually got worse and he had to go to the emergency room where he was admitted. His pain starts in the right side of his low back into his right buttocks down his thigh down his leg into the top of his foot to the big toe. He describes a perfect L5 dermatome. Oddly enough the left leg does not hurt at all. He denies any bowel or bladder dysfunction. He cannot stand or sit hardly at all. On examination he has 2+ patellar reflexes and 1+ Achilles reflexes bilaterally. He has good motor strength of all the major muscle groups of both lower extremities. He has no muscle atrophy. He has no long tract signs. Clonus is absent Babinski's are downgoing. I reviewed his MRI scan that demonstrates that he has moderate and perhaps moderate plus spinal stenosis. This is at the L4-5 level. This goes along with the description of the dermatome. I explained to the patient that I feel he probably needs surgical decompression. I was able to get a hold of Dr. Sahu and Dr. Sahu will do an epidural steroid injection today on the patient. This will try to get him some relief until I can put him on the surgery schedule. My senior systems administrator will be back on Wednesday and we will put him on the schedule as soon as we can. This is the end of consultation on Mr. Americo Mcgovern. This is Dr. Curran dictating. Okay
--- NOTE | 2022-02-06 14:54 | RAD_ITS ---
INDICATION: PAIN EXAMINATION/TECHNIQUE: 1 limited spot intraoperative films from epidural injection are presented for evaluation. Total Fluoroscopic Time: 2.6 seconds AND number of Fluoroscopic Images: 1 COMPARISON: None FINDINGS: Single frontal view fluoroscopy image from intraoperative epidural injection of the lumbar spine is significant for evaluation. Limited assessment due to single frontal view demonstrates a needle placed likely between the L4 and L5 spinous process. Contrast is likely within the epidural space. However, correlation with intraoperative report. RAD/Fluoro Guided Needle Placement IMPRESSION: Intraoperative epidural injection of lumbar spine with limited assessment. Please see intraoperative report for further details. Electronically Signed: Monster Castillo, at 8:05 EDT ,
--- NOTE | 2022-02-06 14:54 | RAD_ITS ---
INDICATION: PAIN EXAMINATION/TECHNIQUE: 1 limited spot intraoperative films from epidural injection are presented for evaluation. Total Fluoroscopic Time: 2.6 seconds AND number of Fluoroscopic Images: 1 COMPARISON: None FINDINGS: Single frontal view fluoroscopy image from intraoperative epidural injection of the lumbar spine is significant for evaluation. Limited assessment due to single frontal view demonstrates a needle placed likely between the L4 and L5 spinous process. Contrast is likely within the epidural space. However, correlation with intraoperative report. RAD/OR-Steroi/Epid Inj/Lum Sac/1st IMPRESSION: Intraoperative epidural injection of lumbar spine with limited assessment. Please see intraoperative report for further details. Electronically Signed: Monster Castillo, at 8:05 EDT ,
[2022-02-06] MEDS: Lidocaine 0.5% (50 ml) 50 ML Vial (14:58)
[2022-02-06] MEDS: Triamcinolone Acetonide 40 MG/ML Vial (14:58)
[2022-02-06] MEDS: Etodolac 300 MG Capsule PO (16:30)
[2022-02-06] MEDS: Atorvastatin Calcium 10 MG Tablet PO (23:20)
[2022-02-07] VITALS (8 sets, daily range): BP systolic 152–174; BP diastolic 79–89; PULSE 62–64; RESP 16–18; TEMP 36.4–36.9; O2SAT 95–98
[2022-02-07] MEDS: 0.9% Saline Lock 10 ML Syringe IV ×3 (04:26→20:15)
[2022-02-07] MEDS: hydrALAZINE 20 MG/ML Vial 10 MG IV ×2 (04:26→20:14)
[2022-02-07] MEDS: Acetaminophen 325 MG Tablet 650 MG PO ×2 (04:27→08:29)
[2022-02-07] MEDS: oxyCODONE 5 MG Tablet PO ×2 (06:33→11:24)
[2022-02-07] MEDS: Pantoprazole Sodium 40 MG Tablet PO (08:24)
[2022-02-07] MEDS: Labetalol 100 MG Tablet PO ×2 (08:24→22:10)
[2022-02-07] MEDS: MethylPREDNISolone DosePak 4 MG BOX PO ×3 (08:24→22:08)
[2022-02-07] MEDS: Potassium Chloride Oral Tablet 20 MEQ PO (08:24)
[2022-02-07] MEDS: Losartan Potassium 100 MG Tablet PO (08:24)
[2022-02-07] MEDS: Enoxaparin 40 MG/0.4 ML Syringe SC (08:24)
[2022-02-07] MEDS: Lidocaine 5% Patch 2 PATCH TOPICAL (08:25)
[2022-02-07] MEDS: hydroCHLOROthiazide 12.5mg 12.5 MG PO (08:25)
[2022-02-07] MEDS: Etodolac 300 MG Capsule PO (08:26)
[2022-02-07] MEDS: Gabapentin 100 MG Capsule PO (08:29)
[2022-02-07] MEDS: tiZANidine HCl 2 MG Tablet PO (08:29)
[2022-02-07] MEDS: Gabapentin 100 MG Capsule 200 MG PO ×2 (11:24→16:37)
[2022-02-07] MEDS: Bisacodyl 5 MG Tablet PO (11:24)
--- NOTE | 2022-02-07 13:08 | PCM.PN.HOSP ---
Subjective Subjective Patient still has severe back pain L4-S2 and over the right ischial spine. Patient has pain over turning and sitting up. Patient could not stand up on his feet. Did not move bowel for 3 days. Patient had epidural injection by Dr. Ortez yesterday on 02/06. General: Alert, Oriented x3, Cooperative, in moderate pain HEENT: Atraumatic, PERRLA, EOMI, Normocephalic Oral: No Gingival or Mucosal Lesions/ Ulcerations Neck: Supple, No JVD, Negative Carotid Bruits Lungs: Air entry diminished in bilateral lung bases. No crepitation/rhonchi Cardiovascular: Regular rate, Regular Rhythm, Normal S1, Normal S2, No murmurs Abdomen: Bowel Sounds Present, Soft, Non Tender, Non-Distended : No renal angle tenderness. No suprapubic tenderness. Extremities: No edema, Capillary Refill Less than 3 Seconds Skin: No rashes, No breakdown Musculoskeletal/spine: Tenderness and muscle spasm over L4-L5 and right buttock over right ischial spine. Painful movement of lateral rotation flexion or extension. Pain distribution over right L4 nerve distribution. Right lower extension, flexion, right ankle flexion extension inversion eversion 4+/5. Right knee and hip extension 4/5 mainly due to pain and back spasm Neurological: Cranial nerves II-XII grossly intact, DTR 2+/4 Psych/Mental Status: Flat affect. Objective Data Objective Data Vital Signs: Vital Signs Temp Pulse Resp BP Pulse Ox 97.7 F L 64 18 156/81 H 97 02/07/22 08:30 02/07/22 08:30 02/07/22 08:30 02/07/22 08:30 02/07/22 08:30 Oxygen Delivery Method Room Air Weight: 209 lb 10.554 oz Body Mass Index (BMI) 30.0 Intake & Output: Intake and Output for Last 24 Hours 02/05/22 02/06/22 02/07/22 23:59 23:59 23:59 Intake Total 1730 / 2530 1900 / 1900 600 / 600 Output Total 900 / 1800 3550 / 3550 1400 / 1400 Balance 830 / 730 -1650 / -1650 -800 / -800 Lab / Micro Data Result Diagrams: 02/05/22 04:57 02/05/22 04:57 Assessment & Plan Assessment/Plan (1) Spinal stenosis: QUALIFIERS: Spinal region: lumbar Neurogenic claudication status: unspecified Qualified Code(s): M48.061 - Spinal stenosis, lumbar region without neurogenic claudication PLAN: 1. The patient is admitted for acute on chronic lumbar spine pain, sciatica type with radiation to right lower extremity, to right great toe, over L L4-L5 nerve distribution; failed conservative management spine injection and oral pain medications. Lumbar MRI reviewed. It shows multilevel disc changes with moderate spinal canal stenosis at L4-L5 level with multilevel degenerative disc disease. Spine surgeon Dr. Curran is consulted and saw the patient. He agrees that patient is surgical decompression. Patient had epidural injection by Dr. Sahu. He will try to schedule him for back surgery but he rescheduled 1 be back until Wednesday. 02/07: Patient still has significant back pain and spasm. Tizanidine discontinued and diazepam started. Patient on methylprednisolone, NSAID, and opioids 2. Hypertension: Patient on high dose of antihypertensive medication, losartan HCTZ 100-12.5 mg daily. Currently blood pressure is in 120s therefore losartan 25 mg ordered. 02/06: Blood pressure systolic 150s. Increase losartan to 50 mg daily. Patient on labetalol 100 mg twice daily and losartan increased 200 mg daily. 02/07: Blood pressure elevated. Patient is back on antihypertensive medication losartan 100 mg daily and HCTZ 12.5 mg daily. 3. Opioid-induced constipation: Started on psyllium, senna S, bisacodyl and MiraLAX. If patient does not have success, escalate to suppository and enema. 4. Transient A. fib but is not on any anticoagulant. Currently in sinus rhythm 5. Dyslipidemia 6. VTE prophylaxis: On enoxaparin 40 minutes of daily Charges/Coding Visit Charges Inpatient E&M: 09099 Subs Hosp L2
[2022-02-07] MEDS: HYDROmorphone 0.5 MG/0.5 ML SYRINGE IV ×2 (14:54→20:15)
--- NOTE | 2022-02-07 15:34 | CASEMGMT ---
Pt and requested to speak w/SW in regard to discharge plan. Pt and concerned that pt's surgery may be delayed and he would not be able to return home, they would like pt to go somewhere if surgery is not right away. SW gave list of intermediate facilities complete with quality and resource use data and in network w/pt's insurance, in pt's preferred geographic area to pt and . They would like pt to go to TCU if possible. They did not like the other choices on the list and if TCU cannot take pt may want SW to check with some other facilities to confirm whether or not they are in network. SW left a message for Sonja in TCU letting her know of the referral, and will let Wednesday's SW know to follow up. If pt does have surgery on Wednesday, he may not need to go to a SNF for rehab, if his pain is improved. SANDRO Mack
[2022-02-07] MEDS: diazePAM 2 MG Tablet PO (16:37)
[2022-02-07] MEDS: Psyllium 1 PACKET PO (22:08)
[2022-02-07] MEDS: Atorvastatin Calcium 10 MG Tablet PO (22:09)
[2022-02-07] MEDS: Senna/Docusate Sodium 1 Tablet 2 TABLET PO (22:10)
[2022-02-08] VITALS (7 sets, daily range): BP systolic 135–187; BP diastolic 79–96; PULSE 70–77; RESP 16–18; TEMP 36.6–36.9; O2SAT 95–98
[2022-02-08] MEDS: hydrALAZINE 20 MG/ML Vial 10 MG IV (03:21)
[2022-02-08] MEDS: HYDROmorphone 0.5 MG/0.5 ML SYRINGE IV ×5 (05:05→21:13)
[2022-02-08] MEDS: Gabapentin 100 MG Capsule 200 MG PO ×3 (05:13→16:21)
[2022-02-08] MEDS: Senna/Docusate Sodium 1 Tablet 2 TABLET PO ×2 (05:13→21:12)
[2022-02-08] MEDS: Acetaminophen 325 MG Tablet 650 MG PO (05:13)
[2022-02-08] MEDS: diazePAM 2 MG Tablet PO ×3 (05:13→21:13)
[2022-02-08] MEDS: hydroCHLOROthiazide 12.5mg 12.5 MG PO (05:14)
[2022-02-08] MEDS: Pantoprazole Sodium 40 MG Tablet PO (05:14)
[2022-02-08] MEDS: Labetalol 100 MG Tablet PO ×2 (05:14→21:12)
[2022-02-08] MEDS: Losartan Potassium 100 MG Tablet PO (05:14)
[2022-02-08] MEDS: Etodolac 300 MG Capsule PO (05:14)
[2022-02-08] MEDS: Potassium Chloride Oral Tablet 20 MEQ PO (05:14)
[2022-02-08] MEDS: Enoxaparin 40 MG/0.4 ML Syringe SC (05:15)
[2022-02-08] MEDS: Polyethylene Glycol 3350 17 GM PACKET PO (05:15)
[2022-02-08] MEDS: Psyllium 1 PACKET PO ×3 (05:15→21:12)
[2022-02-08] MEDS: MethylPREDNISolone DosePak 4 MG BOX PO ×2 (05:15→21:12)
[2022-02-08] MEDS: Lidocaine 5% Patch 2 PATCH TOPICAL (05:16)
--- NOTE | 2022-02-08 07:43 | PCM.PN.HOSP ---
Subjective Subjective Patient heart rate and blood pressure in normal range. It was high 174/89, 174/89. 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 Objective Data Objective Data Vital Signs: Vital Signs Temp Pulse Resp BP Pulse Ox 98 F 71 18 135/96 H 97 02/08/22 02:21 02/08/22 05:12 02/08/22 02:21 02/08/22 05:12 02/08/22 06:59 Oxygen Delivery Method Room Air Weight: 209 lb 10.554 oz Body Mass Index (BMI) 30.0 Intake & Output: Intake and Output for Last 24 Hours 02/06/22 02/07/22 02/08/22 23:59 23:59 23:59 Intake Total 1900 / 1900 1200 / 1200 700 / 700 Output Total 3550 / 3550 2200 / 2200 700 / 700 Balance -1650 / -1650 -1000 / -1000 0 / 0 Lab / Micro Data Result Diagrams: 02/05/22 04:57 02/05/22 04:57 Physical Exam Narrative Patient still has severe back pain L4-S2 and over the right ischial spine. Patient has pain over turning and sitting up. Patient could not stand up on his feet. Did not move bowel for 3 days. Patient had epidural injection by Dr. Ortez yesterday on 02/06. Patient had good relief with the Dilaudid on 02/07. Oxycodone discontinued and replaced with Dilaudid. Patient did not had bowel movement even after oral stool softener MiraLAX, I-S, psyllium and bisacodyl 5 mg. Dulcolax increased to 10 mg oral and suppository. General: Alert, Oriented x3, Cooperative, in moderate pain HEENT: Atraumatic, PERRLA, EOMI, Normocephalic Oral: No Gingival or Mucosal Lesions/ Ulcerations Neck: Supple, No JVD, Negative Carotid Bruits Lungs: Air entry diminished in bilateral lung bases. No crepitation/rhonchi Cardiovascular: Regular rate, Regular Rhythm, Normal S1, Normal S2, No murmurs Abdomen: Bowel Sounds Present, Soft, Non Tender, Non-Distended : No renal angle tenderness. No suprapubic tenderness. Extremities: No edema, Capillary Refill Less than 3 Seconds Skin: No rashes, No breakdown Musculoskeletal/spine: Tenderness and muscle spasm over L4-L5 and right buttock over right ischial spine. Painful movement of lateral rotation flexion or extension. Pain distribution over right L4 nerve distribution. Right lower extension, flexion, right ankle flexion extension inversion eversion 4+/5. Right knee and hip extension 4/5 mainly due to pain and back spasm Neurological: Cranial nerves II-XII grossly intact, DTR 2+/4 Psych/Mental Status: Flat affect. Const General Appearance: cooperative HEENT normocephalic Eyes no scleral icterus Neck no lymphadenopathy and supple General: trachea midline Resp Effort and Inspection: able to speak in complete sentences and symmetric chest movement Extremity normal capillary refill Assessment & Plan Assessment/Plan (1) Spinal stenosis: QUALIFIERS: Neurogenic claudication status: unspecified Spinal region: lumbar Qualified Code(s): M48.061 - Spinal stenosis, lumbar region without neurogenic claudication PLAN: 1. The patient is admitted for acute on chronic lumbar spine pain, sciatica type with radiation to right lower extremity, to right great toe, over L L4-L5 nerve distribution; failed conservative management spine injection and oral pain medications. Lumbar MRI reviewed. It shows multilevel disc changes with moderate spinal canal stenosis at L4-L5 level with multilevel degenerative disc disease. Spine surgeon Dr. Curran is consulted and saw the patient. He agrees that patient is surgical decompression. Patient had epidural injection by Dr. Sahu. He will try to schedule him for back surgery but he rescheduled 1 be back until Wednesday. 02/07: Patient still has significant back pain and spasm. Tizanidine discontinued and diazepam started. Patient on methylprednisolone, NSAID, and opioids 02/08: Back pain better on Dilaudid. Patient also on lidocaine patch. Oxycodone discontinued. 2. Hypertension: Patient on high dose of antihypertensive medication, losartan HCTZ 100-12.5 mg daily. Currently blood pressure is in 120s therefore losartan 25 mg ordered. 02/06: Blood pressure systolic 150s. Increase losartan to 50 mg daily. Patient on labetalol 100 mg twice daily and losartan increased 200 mg daily. 02/07: Blood pressure elevated. Patient is back on antihypertensive medication losartan 100 mg daily and HCTZ 12.5 mg daily. 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 HCTZ increased to 25 mg daily. 3. Opioid-induced constipation: Started on psyllium, senna S, bisacodyl and MiraLAX. If patient does not have success, escalate to suppository and enema. 02/08: Patient had good bowel movement in the morning after Dulcolax 10 mg 1 dose and suppository. Continue stool softener. 4. Transient A. fib but is not on any anticoagulant. Currently in sinus rhythm 5. Dyslipidemia 6. VTE prophylaxis: On enoxaparin 40 minutes of daily Discharge plan: Patient looking for TCU. Discharged to SNF Charges/Coding Visit Charges Inpatient E&M: 15901 Subs Hosp L2
[2022-02-08] MEDS: hydroCHLOROthiazide 25 MG Tablet PO (08:07)
[2022-02-08] MEDS: Bisacodyl 5 MG Tablet 10 MG PO (08:07)
[2022-02-08] MEDS: Bisacodyl 10 MG Suppository RC (08:08)
[2022-02-08] MEDS: 0.9% Saline Lock 10 ML Syringe IV ×4 (08:08→21:13)
[2022-02-08] MEDS: Atorvastatin Calcium 10 MG Tablet PO (21:12)
[2022-02-09 02:49] VITALS: BP 153/92; PULSE 69; RESP 16; TEMP 36.7; O2SAT 97
[2022-02-09] MEDS: diazePAM 2 MG Tablet PO ×3 (02:57→21:31)
[2022-02-09] MEDS: HYDROmorphone 0.5 MG/0.5 ML SYRINGE IV ×5 (02:58→21:31)
[2022-02-09] MEDS: 0.9% Saline Lock 10 ML Syringe IV ×5 (02:59→21:31)
[2022-02-09 06:31] LABS: Anion Gap 5 (5-15); BUN 30 mg/dL (7-18); BUN/Creat Ratio 39.2 RATIO (10-20); Calcium,Total 8.6 mg/dL (8.5-10.1); Chloride 105 mmol/L (98-107); Creatinine, Serum 0.77 mg/dL (0.70-1.30); EST Glomerular Filtration Rate 106 mL/min (>60); Est Glom Filt Rate - Afr Amer 128 mL/min (>60); Estimated Creatinine Clearance 66.92 ml/min; Glucose 189 mg/dL (74-106); Potassium 3.9 mmol/L (3.5-5.1); Sodium Level 138 mmol/L (136-145)
[2022-02-09] MEDS: Psyllium 1 PACKET PO ×2 (06:58→15:27)
--- NOTE | 2022-02-09 07:54 | PN.HOSP_ITS ---
Subjective Subjective Has been dealing with chronic back for some time, but significantly worsened 5 weeks ago. Has been limited in his activity due to his back pain. Objective Data Objective Data Vital Signs: Vital Signs Temp Pulse Resp BP Pulse Ox 36.7 C 69 16 153/92 H 97 02/09/22 02:49 02/09/22 02:49 02/09/22 02:49 02/09/22 02:49 02/09/22 02:49 Oxygen Delivery Method Room Air Weight: 95.1 kg Body Mass Index (BMI) 30.0 Intake & Output: Intake and Output for Last 24 Hours 02/07/22 02/08/22 02/09/22 23:59 23:59 23:59 Intake Total 1200 / 1200 1450 / 1450 800 / 800 Output Total 2200 / 2200 700 / 700 1350 / 1350 Balance -1000 / -1000 750 / 750 -550 / -550 Lab / Micro Data Result Diagrams: 02/05/22 04:57 02/09/22 05:36 Labs: Laboratory Results - last 24 hr 02/09/22 05:36: Sodium 138, Potassium 3.9, Chloride 105, Carbon Dioxide 28.0, Anion Gap 5, BUN 30 H, Creatinine 0.77, Estim Creat Clear Calc 66.92, Est GFR (MDRD) Af Amer 128, Est GFR (MDRD) Non-Af 106, BUN/Creatinine Ratio 39.2 H, Glucose 189 H, Calcium 8.6 Physical Exam Const alert and no apparent distress Resp normal respiratory effort, no retractions, no use of accessory muscles and clear to auscultation bilaterally Cardio regular rate, regular rhythm, S1 normal heart sound and S2 normal heart sound GI normal to inspection, nondistended, normoactive bowel sounds and soft to palpation Assessment & Plan Assessment/Plan (1) Spinal stenosis: QUALIFIERS: Neurogenic claudication status: unspecified Spinal region: lumbar Qualified Code(s): M48.061 - Spinal stenosis, lumbar region without neurogenic claudication PLAN: 1. Radicular back pain * The patient is admitted for acute on chronic lumbar spine pain, sciatica type with radiation to right lower extremity, to right great toe, over L L4-L5 nerve distribution; failed conservative management spine injection and oral pain medications. * Lumbar MRI: It shows multilevel disc changes with moderate spinal canal stenosis at L4-L5 level with multilevel degenerative disc disease. * Spine surgeon Dr. Curran is consulted and saw the patient. He agrees that patient is surgical decompression. Patient had epidural injection by Dr. Sahu. He will try to schedule him for back surgery but he rescheduled 1 be back until Wednesday. * History: * 02/07: Patient still has significant back pain and spasm. Tizanidine discontinued and diazepam started. Patient on methylprednisolone, NSAID, and opioids * 02/08: Back pain better on Dilaudid. Patient also on lidocaine patch. Oxycodone discontinued. * 02/09: medically optimized for surgery. NSQIP shows he is at lower than average risk. Plan for surgery 02/10 2. Hypertension: * Patient on high dose of antihypertensive medication, losartan HCTZ 100-12.5 mg daily. Currently blood pressure is in 120s therefore losartan 25 mg ordered. * History: * 02/06: Blood pressure systolic 150s. Increase losartan to 50 mg daily. Patient on labetalol 100 mg twice daily and losartan increased 200 mg daily. * 02/07: Blood pressure elevated. Patient is back on antihypertensive medication losartan 100 mg daily and HCTZ 12.5 mg daily. * 02/08: Blood pressure elevated relationship mgr. HCTZ increased to 25 mg daily. 3. Opioid-induced constipation: * Started on psyllium, senna S, bisacodyl and MiraLAX. If patient does not have success, escalate to suppository and enema. * 02/08: Patient had good bowel movement in the morning after Dulcolax 10 mg 1 dose and suppository. Continue stool softener. 4. Transient A. fib * but is not on any anticoagulant. Currently in sinus rhythm 5. Dyslipidemia 6. VTE prophylaxis: On enoxaparin 40 Discharge plan: Patient looking for TCU Charges/Coding Visit Charges Inpatient E&M: 78335 Subs Hosp L2
[2022-02-09 09:26] VITALS: BP 155/87; PULSE 78; RESP 18; TEMP 36.8; O2SAT 98
[2022-02-09] MEDS: MethylPREDNISolone DosePak 4 MG BOX PO (09:32)
[2022-02-09] MEDS: Pantoprazole Sodium 40 MG Tablet PO (09:34)
[2022-02-09] MEDS: Potassium Chloride Oral Tablet 20 MEQ PO (09:34)
[2022-02-09] MEDS: Gabapentin 100 MG Capsule 200 MG PO ×3 (09:34→17:10)
[2022-02-09] MEDS: Senna/Docusate Sodium 1 Tablet 2 TABLET PO (09:35)
[2022-02-09] MEDS: Losartan Potassium 100 MG Tablet PO (09:36)
[2022-02-09] MEDS: Labetalol 100 MG Tablet PO ×2 (09:36→21:32)
[2022-02-09] MEDS: Lidocaine 5% Patch 2 PATCH TOPICAL (09:37)
[2022-02-09] MEDS: hydroCHLOROthiazide 25 MG Tablet PO (09:38)
[2022-02-09] MEDS: Polyethylene Glycol 3350 17 GM PACKET PO (09:39)
[2022-02-09] MEDS: Etodolac 300 MG Capsule PO (10:50)
[2022-02-09] MEDS: Enoxaparin 40 MG/0.4 ML Syringe SC (10:51)
--- NOTE | 2022-02-09 11:47 | CASEMGMT ---
Social Work Pt is scheduled for surgery tomorrow. SW will reassess for need for SNF/RU after pt surgery. Sonja in TCU updated on this. RNCM updated. ILDEFONSO Nguyen
[2022-02-09] MEDS: Acetaminophen 325 MG Tablet 650 MG PO (11:57)
--- NOTE | 2022-02-09 12:26 | CASEMGMT ---
RN CM in to pt room, pt and aware that a message was left with pain mgmt nurse to see offer any information they are requesting with call back number. They state surgery will be tomorrow and do not feel pt will need any placement. Pt plans to return home post surgery. Updated SW.
[2022-02-09 13:00] VITALS: O2SAT 96
[2022-02-09 15:20] VITALS: BP 160/91; PULSE 78; RESP 18; TEMP 36.8; O2SAT 94
[2022-02-09 21:17] VITALS: BP 161/94; PULSE 70; RESP 18; TEMP 36.7; O2SAT 96
[2022-02-09] MEDS: Atorvastatin Calcium 10 MG Tablet PO (21:32)
[2022-02-10] VITALS (17 sets, daily range): BP systolic 125–174; BP diastolic 75–98; PULSE 68–84; RESP 12–18; TEMP 36.3–37.2; O2SAT 92–100; BMI 29.9
[2022-02-10] MEDS: hydrALAZINE 20 MG/ML Vial 10 MG IV (03:50)
[2022-02-10] MEDS: 0.9% Saline Lock 10 ML Syringe IV ×4 (05:57→22:59)
[2022-02-10] MEDS: HYDROmorphone 0.5 MG/0.5 ML SYRINGE IV ×3 (05:57→19:01)
--- NOTE | 2022-02-10 06:00 | EKG12_ITS ---
Test Reason : PRE OP Blood Pressure : / mmHG Vent. Rate : 075 BPM Atrial Rate : 075 BPM P-R Int : 188 ms QRS Dur : 128 ms QT Int : 434 ms P-R-T Axes : 034 -37 007 degrees QTc Int : 484 ms Sinus rhythm with occasional Premature ventricular complexes Left axis deviation Right bundle branch block Abnormal ECG Confirmed by JAVIER BAH, ALLAN ([id number]), deputy editor in chief GEENA PONCE ([id number]) on 02/10/2022 10:41:40 AM Referred By: SKYLER Confirmed By:ALLAN HERRERA MD
--- NOTE | 2022-02-10 07:10 | PN.HOSP_ITS ---
Subjective Subjective Seen in PACU. Has had some issues with pain. Objective Data Objective Data Vital Signs: Vital Signs Temp Pulse Resp BP Pulse Ox 36.4 C L 68 18 174/94 H 96 02/10/22 03:43 02/10/22 03:50 02/10/22 03:43 02/10/22 03:50 02/10/22 03:43 Oxygen Delivery Method Room Air Weight: 95.1 kg Body Mass Index (BMI) 30.0 Intake & Output: Intake and Output for Last 24 Hours 02/08/22 02/09/22 02/10/22 23:59 23:59 23:59 Intake Total 1450 / 1450 1175 / 1175 300 / 300 Output Total 700 / 700 2925 / 2925 600 / 600 Balance 750 / 750 -1750 / -1750 -300 / -300 Lab / Micro Data Result Diagrams: 02/05/22 04:57 02/09/22 05:36 Physical Exam Const alert and no apparent distress Resp normal respiratory effort and no retractions Cardio regular rate, regular rhythm, S1 normal heart sound and S2 normal heart sound GI normal to inspection, nondistended, normoactive bowel sounds, soft to palpation, non-tender and non-distended Extremity normal to inspection Neuro Neuro Narrative: Moves all extremities spontaneously Assessment & Plan Assessment/Plan (1) Spinal stenosis: QUALIFIERS: Neurogenic claudication status: unspecified Spinal region: lumbar Qualified Code(s): M48.061 - Spinal stenosis, lumbar region wit hout neurogenic claudication PLAN: 1. Radicular back pain * The patient is admitted for acute on chronic lumbar spine pain, sciatica type with radiation to right lower extremity, to right great toe, over L L4-L5 nerve distribution; failed conservative management spine injection and oral pain medications. * Lumbar MRI: It shows multilevel disc changes with moderate spinal canal stenosis at L4-L5 level with multilevel degenerative disc disease. * Spine surgeon Dr. Curran is consulted and saw the patient. He agrees that patient is surgical decompression. Patient had epidural injection by Dr. Sahu. He will try to schedule him for back surgery but he rescheduled 1 be back until Wednesday. * History: * 02/07: Patient still has significant back pain and spasm. Tizanidine discontinued and diazepam started. Patient on methylprednisolone, NSAID, and opioids * 02/08: Back pain better on Dilaudid. Patient also on lidocaine patch. Oxycodone discontinued. * 02/09: medically optimized for surgery. NSQIP shows he is at lower than average risk. Plan for surgery 02/10 * 02/10: s/p decompression laminectomy L4-[address] Curran[address] Drain in place. 2. Hypertension: * Patient on high dose of antihypertensive medication, losartan HCTZ 100-12.5 mg daily. Currently blood pressure is in 120s therefore losartan 25 mg ordered. * History: * 02/06: Blood pressure systolic 150s. Increase losartan to 50 mg daily. Patient on labetalol 100 mg twice daily and losartan increased 200 mg daily. * 02/07: Blood pressure elevated. Patient is back on antihypertensive medication losartan 100 mg daily and HCTZ 12.5 mg daily. 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 * 02/10: BP still elevated. Did receive IV hydralazine. 3. Opioid-induced constipation: * Started on psyllium, senna S, bisacodyl and MiraLAX. If patient does not have success, escalate to suppository and enema. * 02/08: Patient had good bowel movement in the morning after Dulcolax 10 mg 1 dose and suppository. Continue stool softener. 4. Transient A. fib * but is not on any anticoagulant. Currently in sinus rhythm 5. Dyslipidemia 6. VTE prophylaxis: On enoxaparin 40 Discharge plan: Patient looking for TCU when ok by spine surgery. Charges/Coding Visit Charges Inpatient E&M: 98845 Subs Hosp L2
[2022-02-10] MEDS: Lactated Ringers 1,000 ML 999 ML IV (11:30)
[2022-02-10] MEDS: Acetaminophen 500 MG Tablet 1000 MG PO (11:30)
[2022-02-10] MEDS: Cefazolin 2 GM in 0.9% Normal Saline 100 ML IV (12:00)
--- NOTE | 2022-02-10 12:45 | RAD_ITS ---
INDICATION: LAMINECTOMY EXAMINATION/TECHNIQUE: X-RAY - XR Spine Lumbar 1 View. Single intraoperative lateral lumbar spine radiograph was submitted for assessment. COMPARISON: Lumbar spine MRI from 02/04/2022. FINDINGS/ RAD/Spine 1 View Any Level IMPRESSION: Limited intraoperative lateral view of the lumbar spine was submitted for assessment. Overlying radiopaque foreign bodies also somewhat obscures assessment. The L1 vertebral body is not entirely included in the [id number]. There is a surgical pin just posterior to the L5 facet joints. Moderate degenerative disease at L4-L5. Moderate to severe facet arthropathy at L4-L5 and L5-S1. Electronically Signed: Monster Castillo, at 13:27 EDT ,
[2022-02-10] MEDS: THROMBIN (RECOMBINANT) 20,000 UNIT VIAL 20000 UNIT TOPICAL (12:46)
--- NOTE | 2022-02-10 14:09 | OP.PCM_ITS ---
Report of Operation Date of Procedure: 02/10/22 Description of Surgical Findings:: Preoperative diagnosis: Spinal stenosis L4-5 Postoperative diagnosis: The same Procedure: Decompression laminectomy L4-5 CPT code 07811 Surgeon: Dr. Curran executive sales assistant: Shasha Beck NP and Jany CODY Anesthesia: General endotracheal anesthesia administered by [facility] Estimated blood loss: Less than 50 cc Drains: Medium Hemovac Complications: None Procedure: Patient was taken to the OR where he was placed under general endotracheal anesthesia he was a Sam catheter was inserted and neuro monitoring placed their leads on the patient. He was then placed in the prone position on the Harley frame. After appropriate positioning with care to protect his bony prominences his genitalia the ulnar nerves of both elbows at the brachial plexus bilaterally the cervical spine and facial features the back was prepped and draped in standard fashion. Made a longitudinal incision centered over L4 5 subcutaneous tissues were incised the length of skin incision. I then opened the lumbar fascia first to the left of the spinous processes elevated the paravertebral muscles off the lamina for the very top of the lamina of 5. An intraoperative x-ray was taken with a marker in place to c onfirm that we were indeed at the L4-5 level. I open the opposite side exactly the same fashion. The self-retaining super slide retractors were then put in place giving us good access. Bleeders were controlled with cautery. Thorough irrigation was carried out every 10 to 15 minutes in the course of the case. Double-action rongeurs and removed the spinous process of L4 all the way down to the thinned lamina. I then performed the laminotomy and laminectomy with 45 degree Kerrison rongeurs. I then split the ligamentum flavum which was quite thick in the midline and then began removal of the ligamentum flavum first I opened up the right side which was his side of the main pain. Using both a 3 mm 4 mm and 5 mm ligament Kerrisons we remove the ligamentum flavum all the way out to the lateral recess I then checked the L4 V nerve root as it exits its foramen was found to be completely open with no more pressure on the nerve root. I then moved to the opposite side of the table that is the patient's right side and then for that I decompress the left side remove the ligamentum flavum in its entirety with 40 degree Kerrison rongeurs. We checked the foramen also and was found to be totally open on the left side. Again thorough irrigation was carried out 1 last time. An amniotic membrane was placed over the exposed dura to prevent adhesions Gelfoam was placed over the top of that. A medium Hemovac drain was inserted. Then closed the lumbar fascia using [id number] suture with #1 Vicryl followed by closure of subcutaneous tissues with 2-0 Vicryl in interrupted fashion and the skin was approximated using skin clips. Sterile dressings were then applied. The patient was then recovered in the OR moved to his hospital bed and taken to recovery in satisfactory condition. The end of operative summary on Americo Mcgovern. This is Dr. Curran dictating.
[2022-02-10] MEDS: Lactated Ringers 1,000 ML 100 ML IV ×2 (14:39→22:56)
[2022-02-10] MEDS: Labetalol 100 MG Tablet PO ×2 (17:05→21:28)
[2022-02-10] MEDS: Potassium Chloride Oral Tablet 20 MEQ PO (17:06)
[2022-02-10] MEDS: Pantoprazole Sodium 40 MG Tablet PO (17:06)
[2022-02-10] MEDS: Gabapentin 100 MG Capsule 200 MG PO (17:12)
[2022-02-10] MEDS: Cefazolin 1 GM/50 ML BAG IV (19:01)
[2022-02-10] MEDS: Morphine 4 MG/ML Syringe IV ×2 (21:08→22:59)
[2022-02-10] MEDS: Atorvastatin Calcium 10 MG Tablet PO (21:28)
[2022-02-11 01:00] VITALS: BP 142/74; PULSE 81; RESP 18; TEMP 36.5; O2SAT 96
[2022-02-11] MEDS: Cefazolin 1 GM/50 ML BAG IV (04:32)
[2022-02-11 06:23] VITALS: BP 160/81; PULSE 66; RESP 18; TEMP 36.8; O2SAT 98
[2022-02-11] MEDS: 0.9% Saline Lock 10 ML Syringe IV (06:41)
[2022-02-11] MEDS: Morphine 4 MG/ML Syringe IV ×2 (06:41→11:07)
--- NOTE | 2022-02-11 07:23 | PN.HOSP_ITS ---
Subjective Subjective Feels much better. Still with pain in his back. Pain in his right leg is much improved. Objective Data Objective Data Vital Signs: Vital Signs Temp Pulse Resp BP Pulse Ox 36.8 C 66 18 160/81 H 98 02/11/22 06:23 02/11/22 06:23 02/11/22 06:23 02/11/22 06:23 02/11/22 06:23 Oxygen Flow Rate (L/min) 4 Oxygen Delivery Method Room Air Weight: 95.1 kg Body Mass Index (BMI) 29.9 Intake & Output: Intake and Output for Last 24 Hours 02/09/22 02/10/22 02/11/22 23:59 23:59 23:59 Intake Total 1175 / 1175 4988.33 / 5468.33 1390 / 1390 Output Total 2925 / 2925 1400 / 1745 900 / 900 Balance -1750 / -1750 3588.33 / 3723.33 490 / 490 Lab / Micro Data Result Diagrams: 02/05/22 04:57 02/09/22 05:36 Radiography Diagnostic Testing: Radiology Impression Spine X-Ray 02/10/22 12:45 IMPRESSION: Limited intraoperative lateral view of the lumbar spine was submitted for assessment. Overlying radiopaque foreign bodies also somewhat obscures assessment. The L1 vertebral body is not entirely included in the [id number]. There is a surgical pin just posterior to the L5 facet joints. Moderate degenerative disease at L4-L5. Moderate to severe facet arthropathy at L4-L5 and L5-S1. Electronically Signed: Monster Castillo, at 13:27 EDT , Physical Exam Const alert and no apparent distress Resp normal respiratory effort, no retractions, no use of accessory muscles and clear to auscultation bilaterally Cardio regular rate, regular rhythm, S1 normal heart sound and S2 normal heart sound GI normal to inspection, nondistended, normoactive bowel sounds, soft to palpation and non-tender Extremity normal to inspection and full ROM Neuro Neuro Narrative: sensation intact in LE. QUACH spontaneously. Assessment & Plan Assessment/Plan (1) Spinal stenosis: QUALIFIERS: Neurogenic claudication status: unspecified Spinal region: lumbar Qualified Code(s): M48.061 - Spinal stenosis, lumbar region without neurogenic claudication PLAN: 1. Radicular back pain * The patient is admitted for acute on chronic lumbar spine pain, sciatica type with radiation to right lower extremity, to right great toe, over L L4-L5 nerve distribution; failed conservative management spine injection and oral pain medications. * Lumbar MRI: It shows multilevel disc changes with moderate spinal canal stenosis at L4-L5 level with multilevel degenerative disc disease. * Spine surgeon Dr. Curran is consulted and saw the patient. He agrees that patient is surgical decompression. Patient had epidural injection by Dr. Sahu. He will try to schedule him for back surgery but he rescheduled 1 be back until Wednesday. * History: * 02/07: Patient still has significant back pain and spasm. Tizanidine discontinued and diazepam started. Patient on methylprednisolone, NSAID, and opioids * 02/08: Back pain better on Dilaudid. Patient also on lidocaine patch. Oxycodone discontinued. * 02/09: medically optimized for surgery. NSQIP shows he is at lower than average risk. Plan for surgery 02/10 * 02/10: s/p decompression laminectomy L4-[address] Curran[address] Drain in place. * 02/11: pain improved after surgery 2. Hypertension: * Patient on high dose of antihypertensive medication, losartan HCTZ 100-12.5 mg daily. Currently blood pressure is in 120s therefore losartan 25 mg ordered. * History: * 02/06: Blood pressure systolic 150s. Increase losartan to 50 mg daily. Patient on labetalol 100 mg twice daily and losartan increased 200 mg daily. * 02/07: Blood pressure elevated. Patient is back on antihypertensive medic ation losartan 100 mg daily and HCTZ 12.5 mg daily. 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 * 02/10: BP still elevated. Did receive IV hydralazine. * 02/08: overall improved. continue losartan 100, HCTZ 25 3. Opioid-induced constipation: * Started on psyllium, senna S, bisacodyl and MiraLAX. If patient does not have success, escalate to suppository and enema. * 02/08: Patient had good bowel movement in the morning after Dulcolax 10 mg 1 dose and suppository. Continue stool softener. 4. Transient A. fib * but is not on any anticoagulant. Currently in sinus rhythm 5. Dyslipidemia 6. VTE prophylaxis: On enoxaparin 40 Discharge plan: Patient looking for TCU when ok by spine surgery. Charges/Coding Visit Charges Inpatient E&M: 60270 Subs Hosp L2
[2022-02-11 09:33] VITALS: BP 167/81; PULSE 74; RESP 18; TEMP 37.1; O2SAT 96
[2022-02-11] MEDS: Losartan Potassium 100 MG Tablet PO (09:41)
[2022-02-11] MEDS: Psyllium 1 PACKET PO (09:41)
[2022-02-11] MEDS: Polyethylene Glycol 3350 17 GM PACKET PO (09:41)
[2022-02-11] MEDS: Senna/Docusate Sodium 1 Tablet 2 TABLET PO (09:41)
[2022-02-11] MEDS: Etodolac 300 MG Capsule PO (09:42)
[2022-02-11] MEDS: traMADol 50 MG Tablet PO (09:42)
[2022-02-11] MEDS: Ensure Surgery 237 ML LIQUID PO (09:42)
[2022-02-11] MEDS: hydroCHLOROthiazide 25 MG Tablet PO (09:44)
[2022-02-11] MEDS: Pantoprazole Sodium 40 MG Tablet PO (09:48)
[2022-02-11] MEDS: Potassium Chloride Oral Tablet 20 MEQ PO (09:48)
[2022-02-11] MEDS: Gabapentin 100 MG Capsule 200 MG PO ×2 (09:48→13:28)
[2022-02-11] MEDS: Labetalol 100 MG Tablet PO (10:04)
--- NOTE | 2022-02-11 10:59 | NS ---
Per RN Pauly, pt w/ two oral nutrition supplements ordered. Will d/c Ensure Surgery and continue w/ Ensure Enlive 120mL 4x/day. Javier Zamora MS, RDN, LD
[2022-02-11 12:00] VITALS: BP 135/78; PULSE 65; RESP 18; TEMP 36.4; O2SAT 97
[2022-02-11 12:35] VITALS: O2SAT 96
--- NOTE | 2022-02-11 12:55 | DCINST_ITS ---
Discharge Instructions Follow Up Care Test Results: Test results from this visit will be discussed in further detail at your follow-up appointment, if applicable. Discharge Plan Admission Admit Date/Time: 02/07/22 19:47 Primary Reason for Your Visit: pain control Attending Provider: Maikel Das Primary Care Provider: Abelardo Small Consulting Providers: Manoj Curran Discharge Orders/Prescriptions Prescriptions: No Action nabumetone 750 mg tablet 750 mg PO DAILY RF: 0 fexofenadine 180 mg tablet 180 mg PO DAILY PRN (Reason: Allergy Symptoms) RF: 0 tramadol 50 mg tablet 50 mg PO Q8H PRN PRN (Reason: Pain) RF: 0 potassium chloride 20 mEq tablet,ER particles/crystals 20 meq PO DAILY RF: 0 labetalol 100 mg tablet 100 mg PO BID RF: 0 fluticasone propionate 50 mcg/actuation spray,suspension 1 spray INTRANASAL DAILY PRN (Reason: Allergy Symptoms) RF: 0 rosuvastatin 5 mg tablet 5 mg PO QHS RF: 0 losartan-hydrochlorothiazide 100-12.5 mg tablet 1 tab PO DAILY RF: 0 ondansetron HCl 4 mg tablet 4 mg PO Q8H PRN PRN (Reason: Nausea) RF: 0 Referrals / Follow Up: Abelardo Small MD [Primary Care Provider] - Disposition Disposition (needs filled in before D/C Order can be placed): Home, Self Care
--- NOTE | 2022-02-11 12:57 | PCM.DC.SUM ---
Providers Date of Admission: 02/07/22 Primary Care Physician: Dr. Abelardo Small MD Consultations 02/04/22 19:46 Consult: Orthopedics Routine Consulting Provider: Manoj Curran Reason for Consult: Intractable lumbar back pain EMERGENT Consult: Yes MD Notified: Yes Date Notified: 02/05/22 Time Notified: 08:32 Method of Notification: Answering Service Reason For Visit: EPIDURAL, CONTINUED PAIN, PLAN FOR Diagnosis Discharge Diagnosis (1) Spinal stenosis: Status: Acute Code(s): M48.00 - Spinal stenosis, site unspecified Qualifiers: Spinal region: lumbar Neurogenic claudication status: unspecified Qualified Code(s): M48.061 - Spinal stenosis, lumbar region without neurogenic claudication Medications at Discharge Home Medications fexofenadine 180 mg PO DAILY PRN 02/04/22 fluticasone propionate 1 spray INTRANASAL DAILY PRN 02/04/22 labetalol 100 mg PO BID 02/04/22 losartan-hydrochlorothiazide 1 tab PO DAILY 02/04/22 nabumetone 750 mg PO DAILY 02/04/22 ondansetron HCl 4 mg PO Q8H PRN PRN 02/04/22 potassium chloride 20 meq PO DAILY 02/04/22 rosuvastatin 5 mg PO QHS 02/04/22 tramadol 50 mg PO Q8H PRN PRN 02/04/22 Hospital Course Summary of Care Provided Hospital Course: This patient was admitted on or about the of this month. He had intractable pain in his right buttocks down his right thigh down his right leg. I did consult on Wednesday and had Dr. Sahu performed lumbar epidural steroid injection. Failed to help his tremendous right leg pain. The MRI demonstrates severe spinal stenosis at L4-5. I went ahead and scheduled him for surgery yesterday. Underwent decompression at the L4-5 level. He tolerated the procedure well. Today he reports that his right leg pain is gone. Change his dressing and the incision is healing well. The drain was removed. I gave him and his instructions specifically and she wrote them all down.. I will see him again 1 week after . Is the end of discharge summary on Americo Mcgovern. This is Dr. Curran dictating. Weight / BMI Weight Weight: 209 lb 10.554 oz Body Mass Index (BMI) 29.9 ABG / Lab / Microbiology Data Result Diagrams: 02/05/22 04:57 02/09/22 05:36 Radiography Diagnostic Testing: Radiology Impression Spine X-Ray 02/10/22 12:45 IMPRESSION: Limited intraoperative lateral view of the lumbar spine was submitted for assessment. Overlying radiopaque foreign bodies also somewhat obscures assessment. The L1 vertebral body is not entirely included in the [id number]. There is a surgical pin just posterior to the L5 facet joints. Moderate degenerative disease at L4-L5. Moderate to severe facet arthropathy at L4-L5 and L5-S1. Electronically Signed: Monster Castillo, at 13:27 EDT , Meaningful Use Info Meaningful Use Diagnoses (Choose all that apply): None applicable Discharge Plan Admission Admit Date/Time: 02/07/22 19:47 Primary Reason for Your Visit: pain control Attending Provider: Maikel Das Primary Care Provider: Abelardo Small Consulting Providers: Manoj Curran Discharge Orders/Prescriptions Prescriptions: No Action nabumetone 750 mg tablet 750 mg PO DAILY RF: 0 fexofenadine 180 mg tablet 180 mg PO DAILY PRN (Reason: Allergy Symptoms) RF: 0 tramadol 50 mg tablet 50 mg PO Q8H PRN PRN (Reason: Pain) RF: 0 potassium chloride 20 mEq tablet,ER particles/crystals 20 meq PO DAILY RF: 0 labetalol 100 mg tablet 100 mg PO BID RF: 0 fluticasone propionate 50 mcg/actuation spray,suspension 1 spray INTRANASAL DAILY PRN (Reason: Allergy Symptoms) RF: 0 rosuvastatin 5 mg tablet 5 mg PO QHS RF: 0 losartan-hydrochlorothiazide 100-12.5 mg tablet 1 tab PO DAILY RF: 0 ondansetron HCl 4 mg tablet 4 mg PO Q8H PRN PRN (Reason: Nausea) RF: 0 Referrals / Follow Up: Abelardo Small MD [Primary Care Provider] - Disposition Disposition (needs filled in before D/C Order can be placed): Home, Self Care
[2022-02-11] MEDS: Acetaminophen 325 MG Tablet 650 MG PO (13:27)
[2022-02-11] MEDS: oxyCODONE 5 MG Tablet 10 MG PO (13:28)
--- NOTE | 2022-02-11 13:48 | CASEMGMT ---
Addendum entered by Claudia High 02/11/22 14:53: Received vm from Yu at [facility] requesting imaging, admission note for pt. Faxed this info and DC instructions and summary. Pt wishes this to be faxed. Faxed to [phone]. Addendum entered by Claudia High 02/11/22 13:58: Faxed [employer] rx for FWW. Original Note: BARON CM in to pt room. Pt at bedside. Pt and state pt will return home today and that is their wishes. Pt would like a new walker. Pt chooses [employer] for DME.
[2022-02-11 17:29] VITALS: BP 139/76; PULSE 65; RESP 16; TEMP 36.5; O2SAT 97
== END 2022-02-11 17:45 | disposition home or self-care (01) | DRG 517 ==
LOC: ED 16:54 → MS3 17:38
PROVIDERS: Anesthesiology Pain Medicine; Internal Medicine; Orthopaedic Surgery; Admitting Provider Family Medicine; Emergency Provider Emergency Medicine; PCP Family Medicine
PROC: 3E0S3BZ Introduction of Anesthetic Agent into Epidural Space, Percutaneous Approach (ICD-10-PCS; CPT 62322; principal; 2022-02-06 13:45)
PROC: 01NB0ZZ Release Lumbar Nerve, Open Approach (ICD-10-PCS; CPT 63030; principal; 2022-02-10 12:15)
DX: M48.061 Spinal stenosis, lumbar region without neurogenic claudication (principal); E78.5 Hyperlipidemia, unspecified; I48.91 Unspecified atrial fibrillation; M51.16 Intervertebral disc disorders with radiculopathy, lumbar region; I10 Essential (primary) hypertension; M19.90 Unspecified osteoarthritis, unspecified site; J30.2 Other seasonal allergic rhinitis; K59.03 Drug induced constipation; M51.17 Intervertebral disc disorders with radiculopathy, lumbosacral region; M47.26 Other spondylosis with radiculopathy, lumbar region; T40.2X5A Adverse effect of other opioids, initial encounter; Z87.891 Personal history of nicotine dependence; G89.29 Other chronic pain
CPT/HCPCS: 36415; 64483; 72020; 72148; 77002; 80048; 80053; 85025; 93005; 97110; 97162; 97164; 97165; 97168; 97530; 97535; 97802; 99251; 99284; J7030; J7120; A4216; G0463; J2405

== ENCOUNTER 2023-08-05 09:44 | Emergency (ER) | payer MEDICARE, SELFPAY ==
[2023-08-05 09:44] VITALS: BP 172/81; PULSE 60; RESP 16; TEMP 36.5; O2SAT 97; BMI 33.5
--- NOTE | 2023-08-05 09:57 | CT_ITS ---
STUDY: CT BRAIN WITHOUT CONTRAST REASON FOR EXAM: Male, 77 years old. Dizziness RADIATION DOSAGE (If Supplied By Facility): CTDIvol = ( 44.99 ) mGy, DLP = ( 829.85 ) mGycm TECHNIQUE: Transaxial CT imaging of the brain was performed without administration of intravenous contrast material. Individualized dose optimization techniques were used for this CT. COMPARISON: Comparison is made with prior study-June 16, 2009. FINDINGS: Normal soft tissue structures. Normal calvarium. There is mild cerebral atrophy with widening of the extra-axial spaces and ventricular dilatation. Normal white matter tracts of the cerebral hemispheres. Normal basal ganglia and thalami. Normal brainstem. Normal cerebellum. There is no intracranial hemorrhage. There are no findings of an acute ischemic infarction. Normal visualized paranasal sinuses. CT/Brain/Head without Contrast IMPRESSION: Chronic involutional changes of the brain. Electronically Signed: Roman Friedman MD at 11:01 EST ,
--- NOTE | 2023-08-05 09:57 | EKG12_ITS ---
Test Reason : DIZZNESS Blood Pressure : / mmHG Vent. Rate : 060 BPM Atrial Rate : 060 BPM P-R Int : 212 ms QRS Dur : 154 ms QT Int : 462 ms P-R-T Axes : 002 -57 001 degrees QTc Int : 462 ms Sinus rhythm with 1st degree A-V block Left axis deviation Right bundle branch block Abnormal ECG Confirmed by JAVIER BAH, ALLAN ([id number]), editor managing director GEENA PONCE ([id number]) on 08/11/2023 11:54:54 AM Referred By: Confirmed By:ALLAN HERRERA MD
--- NOTE | 2023-08-05 09:59 | EX.ED.DYSGE1 ---
HPI History of Present Illness Chief Complaint: Dizziness Narrative Narrative: 77-year-old male past medical history of hypertension, thoracic aneurysm that has been stable, presents with lightheadedness and dizziness since this morning. He states that when he tried to get up this morning he felt lightheaded like he was going to pass out. He went to the bathroom, and did not think he was going to make it entirely without passing out. He states his head feels heavy and may be slightly dizzy but not necessarily vertiginous. He took a pain pill this morning and his losartan/hydrochlorothiazide because his blood pressure was slightly elevated. These are his usual medications. He denies any headache or paresthesia of his arms and legs. He states he feels more lightheaded and sometimes nauseated when he stands. He denies any chest pain or shortness of breath. He did take a Zofran which she has at home because sometimes his Percocets make him nauseated. [facility] Medical History Carpal tunnel syndrome Former smoker GERD (gastroesophageal reflux disease) Hypertension Irregular heart beat Osteoarthritis Spinal stenosis at L4-L5 level Home Medications fexofenadine 180 mg tablet 180 mg PO DAILY PRN Allergy Symptoms 02/04/22 [History Last Taken 02/04/22] fluticasone propionate 50 mcg/actuation nasal spray,suspension 1 spray intranasal DAILY PRN Allergy Symptoms 02/04/22 [History Last Taken 02/04/22] labetalol 100 mg tablet 100 mg PO BID 02/04/22 [History Last Taken 02/04/22] losartan 100 mg-hydrochlorothiazide 12.5 mg tablet 1 tab PO DAILY 02/04/22 [History Last Taken 02/04/22] nabumetone 750 mg tablet 750 mg PO DAILY 02/04/22 [History Last Taken 02/04/22] ondansetron HCl 4 mg tablet 4 mg PO Q8H PRN PRN Nausea 02/04/22 [History Last Taken 02/04/22] potassium chloride 20 mEq tablet,extended release(part/cryst) 20 meq PO DAILY 02/04/22 [History Last Taken 02/04/22] rosuvastatin 5 mg tablet 5 mg PO QHS cholesterol 02/04/22 [History Last Taken 02/03/22] oxycodone-acetaminophen 5 mg-325 mg tablet tablet PO 03/27/22 [History Last Taken Unknown] gabapentin 100 mg capsule 300 mg PO Q12H 05/06/22 [History Last Taken Unknown] meclizine 25 mg tablet 25 mg PO 4X/DAY PRN PRN Dizziness #20 tabs 08/05/23 [Rx Last Taken Unknown] Allergy/AdvReac Type Severity Reaction Status Date / Time No Known Allergies Allergy Verified 08/05/23 09:50 Family History Father Diabetes Mother Dementia Aneurysm Sister Diabetes Surgical History H/O abdominal surgery History of carpal tunnel surgery Social History Smoking Status: Former smoker alcohol intake: former substance use type: does not use ROS ROS ED ROS Narrative Constitutional: No fever, no chills. HEENT: No sore throat. No neck pain. No loss of vision. No rhinorrhea. Cardiovascular: No chest pain. No palpitations. No pedal edema. Respiratory: No cough, no shortness of breath. Abdominal: No abdominal pain. Mild nausea. No vomiting. Genitourinary: No dysuria. No hematuria. Musculoskeletal: No myalgias. No arthralgias. Neurologic: No headaches. Questionable dizziness, positive lightheadedness. Skin: No rash. No change in color. Psychiatric: No depression. No anxiety. EXAM Physical Exam Narrative Exam Narrative: Afebrile. Vital signs noted. HEENT: Normocephalic. Atraumatic. PERRL, EOMI. Neck soft and supple. No point tenderness or step off. Cardiovascular: Regular rate and rhythm. No murmurs, rubs, or gallops appreciated. Respiratory: No tachypnea. Lungs clear to auscultation bilaterally. Gastrointestinal: Abdomen soft, nontender, with normoactive bowel sounds. No rebound or guarding. Neurological: Awake. Alert. Nonfocal, nonlateralizing. Skin: No rash. Normal color. No pallor. Musculoskeletal: No pedal edema. Full range of motion extremities. Const Vital Signs: 08/05/23 09:44 08/05/23 10:39 08/05/23 11:03 Temperature 97.7 F L Temperature Source Oral Pulse Rate 60 67 Pulse Rate [Lying] 65 Pulse Rate [Sitting (for 1 minute prior to obtaining)] 65 Pulse Rate [Standing (for 1 minute prior to obtaining)] 73 Respiratory Rate 16 16 Blood Pressure 172/81 H Blood Pressure [Lying] 160/86 H Blood Pressure [Sitting (for 1 minute prior to obtaining)] 184/97 H Blood Pressure [Standing (for 1 minute prior to obtaining)] 163/100 H Blood Pressure Mean 111 Blood Pressure Mean [Lying] 110 Blood Pressure Mean [Sitting (for 1 minute prior to obtaining)] 126 Blood Pressure Mean [Standing (for 1 minute prior to obtaining)] 121 Pulse Ox 97 98 Oxygen Delivery Method Room Air Room Air 08/05/23 14:25 Temperature Temperature Source Pulse Rate 91 Pulse Rate [Lying] Pulse Rate [Sitting (for 1 minute prior to obtaining)] Pulse Rate [Standing (for 1 minute prior to obtaining)] Respiratory Rate Blood Pressure 139/91 H Blood Pressure [Lying] Blood Pressure [Sitting (for 1 minute prior to obtaining)] Blood Pressure [Standing (for 1 minute prior to obtaining)] Blood Pressure Mean 107 Blood Pressure Mean [Lying] Blood Pressure Mean [Sitting (for 1 minute prior to obtaining)] Blood Pressure Mean [Standing (for 1 minute prior to obtaining)] Pulse Ox 95 Oxygen Delivery Method MDM MDM MDM Narrative Medical decision making narrative: Given that the patient is on pill/diuretic, concern would be for dehydration or electrolyte imbalance. Additionally, in the differential diagnosis is vertigo, but his symptoms are more of lightheadedness and vertiginous type symptoms. I have low concern for thoracic dissection of the aorta as he is not having any back pain, tearing back pain, and has equal pulses on examination. Comprehensive work-up was pursued. Initially, I will obtain a CT of the brain as his symptoms are vague and not necessarily classic for benign positional vertigo. If he has intravascular volume depletion he will be bolused normal saline but I will check orthostatics as well. CBC, CMP, and serial troponins will be obtained to help rule out ACS as a cause of his lightheadedness, but he is not having any chest pain. I will also look for signs of occult infection and obtain a chest x-ray to rule out pneumonia, but his history and physical does not support this. Urinalysis will be obtained as well but he does not have dysuria or hematuria. I reviewed the patient's initial laboratory work, he has normal white count of 5.7, hemoglobin normal at 14.5, hematocrit 43.1, platelet count normal at 214. CMP is remarkable for glucose of 129 with a normal anion gap/low at 3. AST and ALT are normal. Initial high-sensitivity troponin is 12 with repeated 2 hours being 10. I do feel that acute coronary syndrome and cardiac ischemia has been ruled out with biomarkers. I did check a urinalysis and there is no evidence of infection, no ketones. I do not feel antibiotics are indicated. I reviewed the nursing orthostatics and while the numbers were acceptable, he may have become dizzy and nauseated upon standing. Patient started having dry heaving so he was administered Zofran. He is unable to describe true vertiginous type symptoms but states he feels nauseated still and may be slightly dizzy. Given his history of thoracic aneurysm and these neurologic signs, although he continues to deny any chest pain or back pain, CTA of the chest, abdomen, and pelvis was obtained to rule out dissection. I reviewed the radiology report which confirms that there is no evidence of dissection but a stable thoracic aortic root aneurysm at approximately 4.5 cm. I reviewed the radiology report for the CT of the brain which shows no evidence of an acute process. Chest x-ray in 1 view interpreted by myself independently shows no evidence of a pneumonia or pneumothorax. I reviewed the radiology report which confirms my independent interpretation. I did add on a lipase because of his continued nausea and this is normal. At this point in time, as he was still nauseated I did administer meclizine to him. Upon repeat evaluation, he feels markedly improved and is able to ambulate in the ED without difficulty. I do had discussed admission with them should he not be able to ambulate but he feels improved and would like to be discharged. I wrote him a prescription for meclizine to take as needed for his vertigo but still suggested that he follow-up with his primary care provider within the next week. I feel he can be discharged safely home with follow-up. Return instructions to the emergency department were reviewed. Patient and his are agreeable to the plan. Disposition is discharged home in stable condition. History & Record Review Discussion w/independent historian: Patient and Family () Additional record(s) reviewed:: Prior ED visit and Prior labs Lab Data Attestation: I reviewed the patient's lab results. Labs: Laboratory Results - last 24 hr 08/05/23 08/05/23 08/05/23 10:00 10:30 12:27 WBC 5.7 RBC 5.03 Hgb 14.5 Hct 43.1 MCV 85.7 MCH 28.8 MCHC 33.6 RDW Std Deviation 38.2 RDW Coeff of [place] 12.2 Plt Count 214 MPV 10.8 Immature Gran % (Auto) 0.400 Neut % (Auto) 70.1 H Lymph % (Auto) 15.9 L [place] % (Auto) 8.5 Eos % (Auto) 4.4 Baso % (Auto) 0.7 Absolute Neuts (auto) 4.0 Absolute Lymphs (auto) 0.90 Nucleated RBC % 0 Sodium 139 Potassium 3.6 Chloride 104 Carbon Dioxide 32.0 Anion Gap 3 L BUN 17 Creatinine 1.12 Estim Creat Clear Calc 58.84 Est GFR (MDRD) Af Amer 82 Est GFR (MDRD) Non-Af 68 BUN/Creatinine Ratio 15.2 Glucose 129 H Calcium 9.0 Total Bilirubin 0.70 AST 33 ALT 39 Alkaline Phosphatase 78 Troponin I High Sens 12 10 Total Protein 6.9 Albumin 3.9 Globulin 3.0 Albumin/Globulin Ratio 1.3 Lipase 41 Urine Color Yellow Urine Clarity Clear Urine pH 6.0 Ur Specific [place] 1.020 Urine Protein 30 H Urine Glucose (UA) Normal Urine Ketones Negative Urine Occult Blood Negative Urine Nitrite Negative Urine Bilirubin Negative Urine Urobilinogen 1 H Ur Leukocyte Esterase 25 H Urine RBC 0 SEEN Urine WBC 0-5 SEEN Ur Squamous Epith Cells 0 SEEN Urine Bacteria 0 SEEN Urine Mucus 2+ Radiography Diagnostic Testing: Clinical Impression(s) from Imaging Studies Brain CT 08/05/23 09:57 IMPRESSION: Chronic involutional changes of the brain. Electronically Signed: Roman Friedman MD at 11:01 EST , Chest X-Ray 08/05/23 10:45 IMPRESSION: Borderline cardiomegaly. The lungs are clear. Electronically Signed: Roman Friedman MD at 11:02 EST , Chest/Abdomen/Pelvis CTA 08/05/23 12:00 IMPRESSION: No evidence of dissection. Dilatation of the root of the ascending thoracic aorta with a transverse dimension of 45.8 mm. Electronically Signed: Roman Friedman MD at 12:30 EST , Discharge Plan Triage Chief Complaint: Dizziness ED Provider: Pepe Pires Dx/Rx/DC Orders Clinical Impression: Lightheadedness, Vertigo Instructions: Vertigo Medicine Tx, ED Near-Fainting, Uncertain Cause, ED Vertigo, Unspecified Prescriptions: New meclizine 25 mg tablet 25 mg PO 4X/DAY PRN PRN (Reason: Dizziness) Qty: 20 0RF No Action oxycodone-acetaminophen 5-325 mg tablet PO gabapentin 100 mg capsule 300 mg PO Q12H nabumetone 750 mg tablet 750 mg PO DAILY Patient Comments: TAKE 1 TABLET BY MOUTH ONCE DAILY FOR 30 DAYS fexofenadine 180 mg tablet 180 mg PO DAILY PRN (Reason: Allergy Symptoms) Patient Comments: TAKE 1 TABLET BY MOUTH ONCE DAILY potassium chloride 20 mEq tablet,ER particles/crystals 20 meq PO DAILY Patient Comments: TAKE 1 TABLET BY MOUTH ONCE DAILY labetalol 100 mg tablet 100 mg PO BID fluticasone propionate 50 mcg/actuation spray,suspension 1 spray INTRANASAL DAILY PRN (Reason: Allergy Symptoms) Patient Comments: USE 1 SPRAY IN EACH NOSTRIL ONCE DAILY RINSE MOUTH AFTER USE rosuvastatin 5 mg tablet 5 mg PO QHS Patient Comments: TAKE 1 TABLET BY MOUTH ONCE DAILY AT BEDTIME losartan-hydrochlorothiazide 100-12.5 mg tablet 1 tab PO DAILY Patient Comments: TAKE 1 TABLET BY MOUTH ONCE DAILY ondansetron HCl 4 mg tablet 4 mg PO Q8H PRN PRN (Reason: Nausea) Primary Care Provider: Abelardo Small Referrals: Abelardo Small MD [Primary Care Provider] - 3-5 Days Activity Restrictions/Additional Instructions: You should take the meclizine only if your dizziness/vertigo returns. Continue your previous medications as directed. Follow-up with your primary care physician within the next week from your emergency department visit today. Disposition Disposition: Home, Self Care
[2023-08-05] MEDS: 0.9% Normal Saline (1000mL) 1,000 ML 1000 ML IV (10:12)
[2023-08-05 10:14] LABS: Basophil# 0.04 X10^3/uL; Basophil% 0.7 % (0-1); Eosinophil# 0.25 X10^3/uL; Eosinophils% 4.4 % (0-5); Hematocrit 43.1 % (40-54); Hemoglobin 14.5 g/dL (13.0-16.5); Lymphocyte % 15.9 % (19-41); Mean Corp Hgb Conc 33.6 g/dL (32-36); Mean Corpuscular Hgb 28.8 pg (27.0-32.0); Mean Corpuscular Volume 85.7 fL (80-94); Mean Platelet Vol. 10.8 fl (6.2-12.0); Monocyte# 0.48 X10^3/uL; Monocyte% 8.5 % (0-10); NRBC Flagged by Analyzer 0 % (0-5); Neutrophil # 3.98 X10^3/uL (2.7-7.7); Neutrophil % 70.1 % (47-70); POSITIVE COUNT YES; Platelet Count 214 K/mm3 (150-450); RBC Distribution Width CV 12.2 % (11.6-14.6); RBC Distribution Width SD 38.2 fl (35.1-43.9); Red Blood Count 5.03 M/mm3 (4.6-6.2); White Blood Count 5.7 K/mm3 (4.4-11.0)
[2023-08-05 10:25] LABS: ALB/GLOB Ratio 1.3 RATIO (0.9-2.4); AST(SGOT) 33 U/L (15-37); Alanine Aminotransfer ALT/SGPT 39 U/L (16-61); Albumin, Serum 3.9 g/dL (3.2-5.0); Alkaline Phosphatase 78 U/L (45-117); Anion Gap 3 (5-15); BUN 17 mg/dL (7-18); BUN/Creat Ratio 15.2 RATIO (10-20); Chloride 104 mmol/L (98-107); Creatinine, Serum 1.12 mg/dL (0.70-1.30); EST Glomerular Filtration Rate 68 mL/min (>60); Est Glom Filt Rate - Afr Amer 82 mL/min (>60); Estimated Creatinine Clearance 58.84 ml/min; Glucose 129 mg/dL (74-106); Potassium 3.6 mmol/L (3.5-5.1); Protein, Total 6.9 g/dL (6.4-8.2); Sodium Level 139 mmol/L (136-145); Troponin-I HS (w/2H Reflex) 12 pg/mL (3.0-78.0)
[2023-08-05 10:39] VITALS: BP 160/86; BP 163/100; BP 184/97; PULSE 65; PULSE 73
[2023-08-05 10:41] LABS: Bacteria 0 SEEN /hpf (None Seen); Red Blood Cells-Urine 0 SEEN /hpf (0-5); Squamous Epithelial Cells - UA 0 SEEN /hpf (0-5)
--- NOTE | 2023-08-05 10:45 | RAD_ITS ---
STUDY: X-RAY CHEST REASON FOR EXAM: Male, 77 years old. CAD TECHNIQUE: Single AP portable view of the chest. COMPARISON: None. FINDINGS: EKG electrodes are seen. The lungs are clear and expanded. There is no demonstrated pleural abnormality. There is borderline cardiomegaly. Normal mediastinum and jey. Normal visualized pulmonary arteries. There is atherosclerotic calcification of the aortic arch with tortuosity. Normal visualized thoracic spine. Normal visualized ribs, clavicles, and shoulders. There is no demonstrated abnormality of the visualized soft tissue structures of the upper abdomen. RAD/Chest 1 View (Portable) IMPRESSION: Borderline cardiomegaly. The lungs are clear. Electronically Signed: Roman Friedman MD at 11:02 EST ,
[2023-08-05 10:56] LABS: Color, Urine Yellow (Yellow); Glucose, Dipstick Normal (Normal); Ketone-Dipstick Negative (Negative); Leukocyte Esterase-Dipstick 25 /ul (Negative); Nitrite-Dipstick Negative (Negative); Occult Blood-Urine Negative /ul (Negative); Protein-Dipstick 30 mg/dl (Negative); Urine Bilirubin Dipstick Negative (Negative); Urine Clarity Clear (Clear); Urine Urobilinogen 1 mg/dl (Normal)
[2023-08-05 11:02] LABS: Mucous, Urine 2+ /hpf (<or=2+); White Blood Cells 0-5 SEEN /hpf (0-5)
[2023-08-05 11:03] VITALS: PULSE 67; RESP 16; O2SAT 98
[2023-08-05] MEDS: Ondansetron 4 MG/2 ML Vial IV (11:08)
[2023-08-05 11:58] LABS: Lipase 41 U/L (13-75)
--- NOTE | 2023-08-05 12:00 | CT_ITS ---
STUDY: CT CHEST, ABDOMEN T PELVIS WITH CONTRAST REASON FOR EXAM: Male, 77 years old. Aortic dissection. RADIATION DOSAGE (If Supplied By Facility): CTDIvol = ( 17.10 ) mGy, DLP = ( 1314.21 ) mGycm TECHNIQUE: Transaxial imaging was performed following intravenous administration of IV 100mL Isovue-370. Individualized dose optimization techniques were used for this CT. COMPARISON: No relevant priors. FINDINGS: CHEST The lungs are normal. There is no demonstrated pleural abnormality. Normal heart and pericardium. Normal mediastinum. Normal hilar regions. Normal unenhanced pulmonary arteries. Dilatation at the root of the ascending thoracic aorta with a transverse dimension of 45.8 mm. Scattered calcific plaques at the level of the aortic arch. There are degenerative changes of the thoracic spine. There is no demonstrated abnormality of the visualized upper abdomen. ABDOMEN The visualized lung bases are unremarkable. The visualized portions of the heart are within normal limits. Normal liver. Normal gallbladder and extrahepatic biliary system. Normal spleen. Normal pancreas. Normal bilateral adrenal glands. Normal right kidney. Normal left kidney. There is a small hiatal hernia. Normal small intestine. There are multiple colonic diverticula consistent with diverticulosis. The appendix is visualized and appears normal. There is scattered atherosclerotic calcification of the abdominal aorta and its major visceral branches, without a demonstrated aneurysm. Normal inferior vena cava. Normal retroperitoneum. Small fat-containing bilateral inguinal hernias. There are degenerative changes of the visualized lumbar spine. PELVIS Normal urinary bladder. There is no pelvic fluid. There is no pelvic lymphadenopathy or mass lesion. Normal visualized pelvic arteries. CT/CTA Chst, Abd, Pel W and/or WO IMPRESSION: No evidence of dissection. Dilatation of the root of the ascending thoracic aorta with a transverse dimension of 45.8 mm. Electronically Signed: Roman Friedman MD at 12:30 EST ,
[2023-08-05 12:03] LABS: Reflex Troponin-HS? (from REC) Y
[2023-08-05 12:52] LABS: Troponin-I HS 10 pg/mL (3.0-78.0)
[2023-08-05] MEDS: Meclizine HCl 25 MG Tablet PO (12:57)
[2023-08-05 14:25] VITALS: BP 139/91; PULSE 91; O2SAT 95
== END 2023-08-05 15:26 | disposition home or self-care (01) ==
PROVIDERS: Emergency Provider Emergency Medicine; PCP Family Medicine; Visit Provider Emergency Medicine
DX: R42 Dizziness and giddiness (principal); I71.20 Thoracic aortic aneurysm, without rupture, unspecified; I10 Essential (primary) hypertension; R11.0 Nausea; Z79.899 Other long term (current) drug therapy; Z87.891 Personal history of nicotine dependence
CPT/HCPCS: 70450; 71045; 71275; 74174; 80053; 81001; 83690; 84484; 85025; 93005; 96361; 96374; 99284; J7030; Q9967; A4216; J2405

== ENCOUNTER → 2024-01-05 | Outpatient (CLI) | payer MEDICARE, SELFPAY ==
--- NOTE | 2024-01-05 12:56 | MRI_ITS ---
HISTORY: Sciatica type pain, surgery 01/2022. TECHNIQUE: Multiplanar and multisequence MR images of the lumbar spine were obtained before and after the intravenous administration of 20 mL Clariscan. 221 images. COMPARISON: XR 12/23/2023. FINDINGS: VERTEBRAE: Vertebral body heights maintained. 1.2 cm L3 vertebral body hemangioma incidentally noted. Degenerative endplate changes at L3-4, L4-5, and L5-S1. ALIGNMENT: 2 mm retrolisthesis of L3-4. Mild dextroscoliosis. SPINAL CANAL: Normal morphology and position of the conus medullaris at L1-2. No gross epidural collection or enhancing intradural extramedullary mass. INTERVERTEBRAL DISCS: T12-L1: Very mild disc bulge with facet arthropathy resulting in mild right foraminal narrowing based on the sagittal images. L1-2: No significant posterior disc protrusion, central canal stenosis, or foraminal narrowing. L2-3: Very mild disc bulge with facet arthropathy resulting in minimal narrowing of the thecal sac and mild right foraminal narrowing. L3-4: Mild disc bulge eccentric to the left with facet arthropathy resulting in mild central canal stenosis, left L4 nerve root impingement, and moderate left foraminal narrowing. L4-5: Decompressive laminectomy. Mild posterior disc bulge osteophyte complex with facet arthropathy. No significant central canal stenosis. Moderate bilateral foraminal narrowing. L5-S1: Mild posterior disc protrusion with facet arthropathy resulting in mild central canal stenosis and bilateral foraminal narrowing. SOFT TISSUES: Posterior subcutaneous edema. No paraspinal fluid collection. MRI/Spine Lumbar W/WO Contrast IMPRESSION: Postoperative change of L4-5 with residual degenerative change and moderate bilateral foraminal narrowing. Multilevel degenerative disc disease with mild spinal canal stenosis, left nerve root impingement, and moderate left foraminal narrowing at L3-4. Mild spinal canal stenosis and bilateral foraminal narrowing of L5-S1. Electronically Signed: Catrachita Forbes MD at 9:12 EDT ,
[2024-01-05 13:58] LABS: CREATININE FINGERSTICK 1.1 mg/dL (0.70-1.30); EGFR FINGERSTICK > 60.0000 mL/min (>60)
== END | disposition home or self-care (01) ==
LOC: MRI 12:46
PROVIDERS: PCP Family Medicine; Referring Provider Orthopaedic Surgery; Visit Provider Orthopaedic Surgery
DX: Z98.890 Other specified postprocedural states (principal)
CPT/HCPCS: 72158; A9575

== ENCOUNTER → 2024-02-24 | Outpatient (CLI) | payer MEDICARE, SELFPAY ==
--- NOTE | 2024-02-24 10:20 | BD_ITS ---
STUDY: DUAL ENERGY X-RAY ABSORPTIOMETRY / DXA REASON FOR EXAM: Male, 78 years old. Pain TECHNIQUE: Bone Mineral Density (BMD) measurements of lumbar spine and bilateral hips were obtained. COMPARISON: None. FINDINGS: Lumbar Spine (L1-L4): g/cm2 (0.706) / T-score (-3.2) / Z-score (-2.1) Findings are suggestive of osteoporosis with a high fracture risk. Left Femur Total: g/cm2 (0.922) / T-score (-0.7) / Z-score (0.1) Left Femoral Neck: g/cm2 (0.762) / T-score (-1.2) / Z-score (0.1) Right Femur Total: g/cm2 (0.883) / T-score (-1.0) / Z-score (-0.1) Right Femoral Neck: g/cm2 (0.726) / T-score (-1.5) / Z-score (-0.1) BD/Dexa Bone Density Study IMPRESSION: The patient is considered osteoporotic as outlined below according to World [employer] Organization (WHO) criteria with a high fracture risk. Reference Information: The T-score is the number of standard deviations above or below the standard which is normal for young adults at their peak bone mineral density. The World Health Organization (WHO) interprets the T-scores as follows: Above -1 Normal bone density Between -1 and -2.5 Osteopenia Equal to / or below -2.5 Osteoporosis As a practical clinical guideline, osteopenia may be graded as follows: Mild -1 through -1.5 Moderate -1.6 through -2.0 Severe -2.1 through -2.4 The Z-score is the number of standard deviations above or below age-matched controls. A Z-score of less than -1.5 would be considered abnormal. References: 1. NIH Osteoporosis and Related Bone Diseases www osteo.org 2. International Society for Clinical Densitometry www iscd.org 3. National Osteoporosis Foundation www nof.org Electronically Signed: Roman Friedman MD at 13:37 EDT ,
== END | disposition home or self-care (01) ==
LOC: OPBD 10:14
PROVIDERS: PCP Family Medicine; Referring Provider Orthopaedic Surgery Orthopaedic Surgery of the Spine; Visit Provider Orthopaedic Surgery Orthopaedic Surgery of the Spine
DX: M81.0 Age-related osteoporosis without current pathological fracture (principal)
CPT/HCPCS: 77080

== ENCOUNTER 2024-03-01 05:11 | Inpatient (IN) | payer MEDICARE, SELFPAY ==
--- NOTE | 2024-02-10 08:55 | EKG12_ITS ---
Test Reason : PREOP Blood Pressure : / mmHG Vent. Rate : 059 BPM Atrial Rate : 059 BPM P-R Int : 236 ms QRS Dur : 144 ms QT Int : 464 ms P-R-T Axes : 014 -52 006 degrees QTc Int : 459 ms Sinus bradycardia with 1st degree A-V block Left anterior fascicular block Right bundle branch block Abnormal ECG Confirmed by Jose Carlos Rivera ([id number]), greeting card editor GEENA PONCE ([id number]) on 02/11/2024 8:49:21 AM Referred By: Jin Jackson Confirmed By:Jose Carlos Rivera
[2024-02-10 10:15] LABS: Absolute Lymphocyte Count 0.91 X10^3/uL (0.83-4.51); Basophil# 0.04 X10^3/uL; Basophil% 0.7 % (0-1); Eosinophil# 0.42 X10^3/uL; Eosinophils% 7.1 % (0-5); Hematocrit 39.6 % (40-54); Hemoglobin 13.6 g/dL (13.0-16.5); Lymphocyte # 0.91 X10^3/ul (0.83-4.51); Lymphocyte % 15.4 % (19-41); Mean Corp Hgb Conc 34.3 g/dL (32-36); Mean Corpuscular Hgb 28.8 pg (27.0-32.0); Mean Corpuscular Volume 83.7 fL (80-94); Monocyte# 0.53 X10^3/uL; NRBC Flagged by Analyzer 0 % (0-5); Neutrophil # 3.97 X10^3/uL (2.7-7.7); Neutrophil % 67.5 % (47-70); Platelet Count 233 K/mm3 (150-450); RBC Distribution Width CV 12.4 % (11.6-14.6); RBC Distribution Width SD 37.3 fl (35.1-43.9); Red Blood Count 4.73 M/mm3 (4.6-6.2); White Blood Count 5.9 K/mm3 (4.4-11.0)
[2024-02-10 10:37] LABS: Anion Gap 8 (5-15); BUN 16 mg/dL (7-18); BUN/Creat Ratio 15.1 RATIO (10-20); Calcium,Total 9.5 mg/dL (8.5-10.1); Chloride 106 mmol/L (98-107); Creatinine, Serum 1.06 mg/dL (0.70-1.30); EST Glomerular Filtration Rate 72 mL/min (>60); Est Glom Filt Rate - Afr Amer 87 mL/min (>60); Glucose 122 mg/dL (74-106); Potassium 3.4 mmol/L (3.5-5.1); Sodium Level 142 mmol/L (136-145)
[2024-02-10 11:17] LABS: HIV - WCH Non-Reactive (Nonreactive); Hepatitis B Surface Antibody Non-Reactive; Hepatitis C Antibody Non-Reactive (Nonreactive)
[2024-02-10 11:29] LABS: Magnesium 2.3 mg/dL (1.6-2.6)
[2024-02-11 06:09] LABS: Hepatitis A AB, Total Negative (Negative)
[2024-03-01] VITALS (18 sets, daily range): BP systolic 130–162; BP diastolic 71–106; PULSE 57–82; RESP 14–20; TEMP 36.1–36.8; O2SAT 96–100; BMI 32.5
[2024-03-01] MEDS: Lactated Ringers 1,000 ML 15 ML IV ×2 (06:00→12:05)
[2024-03-01] MEDS: Magnesium 1 GM over 15 mins IV (06:10)
[2024-03-01] MEDS: Vancomycin HCl 1,500 MG in 0.9% Normal Saline (500mL Bag) 500 ML 250 MG IV (06:30)
--- NOTE | 2024-03-01 06:30 | RAD_ITS ---
PROCEDURE: Fusion at the L3-L4 and L4-L5 levels. DATE OF EXAMINATION: March 01, 2024. INDICATION: Male, 78 years old. Chronic low back pain. FLUOROSCOPY TIME (if supplied): (2 minutes and 12 seconds) minutes/seconds. 16 images were submitted. RAD/Lumbar Spine 2 or 3 Views IMPRESSION: Intraoperative imaging provided for fusion and disc replacement at the L3-L4 and L4-L5 levels. Electronically Signed: Roman Friedman MD at 13:25 EDT ,
[2024-03-01] MEDS: Acetaminophen 500 MG Tablet 1000 MG PO ×3 (06:35→21:08)
--- NOTE | 2024-03-01 07:06 | PRE.ANES_ITS ---
ASA Classification* ASA Classification ASA Classification: 2 Assessment & Plan Anesthesia* Anesthesia Assessment Anesthesia Assessment: Discussed sedation and/or anesthesia options, risks, benefits, and alternatives with patient/parents/legal guardian. Questions invited. The patient/parents/legal guardian/POA seems to understand and agrees to proceed with anesthesia plan. Reviewed the physical assessment, medical history, allergy history and patient home medications list prior to surgery/procedure/anesthetic and documented any changes. Performed airway and anesthesia risk assessments. 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 When Was Last Pacemaker Check QUESTION #4 FULL TEXT: You/Your Family Experience fever (hyperthermia) with Anesthesia Last Oral Intake Last Oral intake: Last Oral Intake NPO since 03:30 03/01/24 06:05 Meds taken in AM with sips of Yes 03/01/24 06:05 water? 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 Female No 02/09/24 13:41 HX of Motion Sickness Yes 02/09/24 13:41 HX of N/V After Surgery Yes 02/09/24 13:41 Non-Smoker Yes 02/09/24 13:41 Duration of Surgery greater Yes 02/09/24 13:41 than 60 minutes Number of Risk Factors 4 02/09/24 13:41 PONV Score Severe Risk 02/09/24 13:41 Height & Weight Height & Weight: Anesthesia: Height & Weight Height 1.78 m 03/01/24 06:05 Weight: 103 kg 03/01/24 06:05 Body Mass Index (BMI) 32.5 03/01/24 06:05 Respiratory Assessment Respiratory Assessment - bit sharpener operator: Respiratory Tract Infection Hx - 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 Has anyone observed you stop No 02/09/24 13:41 breathing during sleep? STOP Results Negative 02/09/24 13:41 QUESTION #5 FULL TEXT : Do you snore loudly (louder than talking or can be heard through closed doors)? 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 Specify any problems Hx of Preganancy in last 3 N/A 02/09/24 13:41 Months Nurse Filling Out Transfusion VCHRISTIN 02/09/24 13:41 & Questions: Date: 02/09/24 02/09/24 13:41 Time: 13:42 02/09/24 13:41 Patient unable to answer at this time (ie. 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 sharpener operator: /Reproductive Hx- bit sharpener operator Hx Now Gestational Age (in weeks): EDC: Hx Hx Para Hx Section SAB Active Medications Active Medications: Current Medications Generic Name Dose Route Start Last Admin Trade Name Giancarloq PRN Reason Stop Dose Admin Acetaminophen 1,000 mg 03/01/24 07:30 03/01/24 06:35 Acetaminophen 500 Mg Tablet PO 03/01/24 07:31 1,000 mg X1 ONE Administration Cefazolin Sodium 2 gm/ Sodium 110 mls @ 150 mls/hr 03/01/24 07:30 Chloride IV 03/01/24 08:13 PREOP ONE Vancomycin HCl 1,500 mg/ 530 mls @ 250 mls/hr 03/01/24 07:30 03/01/24 06:30 Sodium Chloride IV 03/01/24 09:37 250 mls/hr PREOP ONE Administration Lactated Ringer's 1,000 mls @ 15 mls/hr 03/01/24 05:45 03/01/24 06:00 IV 15 mls/hr .Q48H TANMAY Administration Insulin Human Lispro 1 - 6 unit 03/01/24 07:30 Insulin Lispro 100 Unit/Ml Insuln.Pen SC Q4H PRN PRN BG>/= 180, SEE PROTOCOL Protocol Anesthesia Focused Assessment* Temperature: 98.2 F Pulse Rate: 57 Blood Pressure: 132/72 Respiratory Rate: 16 Pulse Ox: 97 Airway Assessment Mouth opens (cm): 3 Mallampati Score: I Focused Labs Anesthesia Preop lab: CBC WBC 5.9 K/mm3 (4.4-11.0) 02/10/24 09:09 RBC 4.73 M/mm3 (4.6-6.2) 02/10/24 09:09 Hgb 13.6 g/dL (13.0-16.5) 02/10/24 09:09 Hct 39.6 % (40-54) L 02/10/24 09:09 Plt Count 233 K/mm3 (150-450) 02/10/24 09:09 CHEMISTRY Potassium 3.4 mmol/L (3.5-5.1) L 02/10/24 09:09 Sodium 142 mmol/L (136-145) 02/10/24 09:09 Magnesium 2.3 mg/dL (1.6-2.6) 02/10/24 09:09 BUN 16 mg/dL (7-18) 02/10/24 09:09 Creatinine 1.06 mg/dL (0.70-1.30) 02/10/24 09:09 Glucose 122 mg/dL (74-106) H 02/10/24 09:09 TSH 2.31 uIU/mL (0.358-3.74) 07/08/16 11:52 COAG Review of Systems (Anesthesia) ROS Narrative System reviewed and no additional complaints, except as documented. [facility] Medical History Wears dentures Wears glasses History of steroid therapy Arthritis High cholesterol History of diverticulitis Gastric reflux Shortness of breath on exertion History of pain when walking History of stress test Cardiology follow-up encounter Thoracic aortic aneurysm History of irregular heartbeat Carpal tunnel syndrome Spinal stenosis at L4-L5 level Osteoarthritis GERD (gastroesophageal reflux disease) Former smoker Irregular heart beat Hypertension Home Medications ?Medication ?Instructions ?Recorded ?Last Taken ?Type fexofenadine 180 mg tablet 180 mg PO DAILY PRN Allergy 02/04/22 02/29/24 History Symptoms fluticasone propionate 50 1 spray intranasal DAILY PRN 02/04/22 02/29/24 History mcg/actuation nasal Allergy Symptoms spray,suspension labetalol 100 mg tablet 100 mg PO BID BP 02/04/22 03/01/24 03:30 History nabumetone 750 mg tablet 750 mg PO DAILY PAIN 02/04/22 02/29/24 12:00 History ondansetron HCl 4 mg tablet 4 mg PO Q8H PRN PRN Nausea 02/04/22 02/29/24 17:30 History rosuvastatin 5 mg tablet 5 mg PO QHS cholesterol 02/04/22 02/29/24 22:00 History oxycodone-acetaminophen 5 mg-325 1 tab PO Q8H PRN pain 03/27/22 03/01/24 03:30 History mg tablet gabapentin 100 mg capsule 300 mg PO Q12H PAIN 05/06/22 03/01/24 03:30 History meclizine 25 mg tablet 25 mg PO 4X/DAY PRN PRN Dizziness 08/05/23 02/29/24 17:30 Rx #20 tabs losartan 100 1 tab PO DAILY BP 02/09/24 02/29/24 12:00 History mg-hydrochlorothiazide 25 mg tablet potassium chloride 20 mEq 20 meq PO BID SUPPLEMENT 02/23/24 02/29/24 22:00 History tablet,extended release(part/cryst) Allergy/AdvReac Type Severity Reaction Status Date / Time No Known Allergies Allergy Verified 03/01/24 06:34 Family History (Updated 03/01/24 @ 07:[address] Sonny Ayala MD) Father Diabetes Mother Dementia Aneurysm Sister Diabetes Other Hypertension Surgical History Hx of abdominal surgery Hx of eye surgery Hx of surgical procedure Hx of hernia repair Hx of laminectomy History of carpal tunnel surgery Social History Smoking Status: Former smoker alcohol intake: former substance use type: does not use
--- NOTE | 2024-03-01 07:26 | HP.PCM_ITS ---
History and Physical Date of Admission: 03/01/24 MR#: [id number] Acct: [id number] Name: AMERICO ALBRIGHT Rep #: [id number] : 1945 Provider: Dr. Jin Jackson MD Age/Sex: 78/M Location: [facility] [place] Status: Signed Intake Vital Signs 01/14/2412:07 Height 5 ft 10 in Weight: 231 lb 2 oz BMI 33.1 Intake Visit Reasons: lumbar spine Chief Complaint: lumbar spine Accompanied by: Is patient in pain?: Yes Pain scale (1-10): 8 Allergies No Known Allergies Allergy (Verified 02/23/24 10:50) Medications ?Medication ?Instructions ?Recorded ?Confirmed ?Type fexofenadine 180 mg tablet 180 mg PO DAILY PRN Allergy 02/04/22 02/23/24 History Symptoms fluticasone propionate 50 1 spray intranasal DAILY PRN 02/04/22 02/23/24 History mcg/actuation nasal Allergy Symptoms spray,suspension labetalol 100 mg tablet 100 mg PO BID BP 02/04/22 02/23/24 History nabumetone 750 mg tablet 750 mg PO DAILY PAIN 02/04/22 02/23/24 History ondansetron HCl 4 mg tablet 4 mg PO Q8H PRN PRN Nausea 02/04/22 02/23/24 History rosuvastatin 5 mg tablet 5 mg PO QHS cholesterol 02/04/22 02/23/24 History oxycodone-acetaminophen 5 mg-325 1 tab PO Q8H PRN pain 03/27/22 02/23/24 History mg tablet gabapentin 100 mg capsule 300 mg PO Q12H PAIN 05/06/22 02/23/24 History meclizine 25 mg tablet 25 mg PO 4X/DAY PRN PRN Dizziness 08/05/23 02/23/24 Rx #20 tabs losartan 100 1 tab PO DAILY BP 02/09/24 02/23/24 History mg-hydrochlorothiazide 25 mg tablet potassium chloride 20 mEq 20 meq PO BID SUPPLEMENT 02/23/24 02/23/24 History tablet,extended release(part/cryst) PFSH Medical History Wears dentures Wears glasses History of steroid therapy Arthritis High cholesterol History of diverticulitis Gastric reflux Shortness of breath on exertion History of pain when walking History of stress test Cardiology follow-up encounter Thoracic aortic aneurysm History of irregular heartbeat Carpal tunnel syndrome Spinal stenosis at L4-L5 level Osteoarthritis GERD (gastroesophageal reflux disease) Former smoker Irregular heart beat Hypertension Surgical History Hx of abdominal surgery Hx of eye surgery Hx of surgical procedure Hx of hernia repair Hx of laminectomy History of carpal tunnel surgery Family History Father DiabetesMother Dementia AneurysmSister Diabetes Social History Smoking Status: Former smoker alcohol intake: former substance use type: does not use HPI lumbar spine Details: This documentation accurately reflects the service provided and the decisions made by me, Dr. Jin Jackson MD 02/23/24 1039. Part of today?s visit was documented by Apolonia Randhawa ATC, acting as scribe. AMERICO ALBRIGHT is a 78 year old M here today for pre-op 360 lumbar fusion L3-4 and L4-5 with possible cement augmentation DOS 03/01/2024. Patient states the pain is always getting worse. He rates his pain about a 8-9/10. He states even while taking pain medications his pain is pretty bad. Americo continues to have low back pain with radiation to the left possibly. He is 2 years status post L3-5 laminectomy. Following his his previous history: 01/14/24: AMERICO ALBRIGHT is a 78 year old M here today for low back pain. He states that he has pain that radiates into his BL legs with numbness and tingling. He did have an MRI on 01/05/24. Denies recent injections. He is here to discuss surgery. Americo has had low back pain for more than a decade. This severely worsened about 2 years ago when he was admitted for pain control, but ended up needing surgery. He underwent laminectomy L3-[address] Curran in January 2022 during that admission. This improved his pain initially, but he continued to have low back pain and left lower extremity numbness and pain. This is significantly worsened such that now he is only able to walk about 1 block distance after which she has to find a place to sit down. He also has some right-sided pain going to his right buttock region but no radiation down the leg. He has had numerous epidural injections through pain management over the years. The last injection was a few months ago. He also tried physical therapy without much relief. He is able to walk without any ambulatory aid but has severe difficulty getting up from seated position. He cannot stand for long peers of time. He reports that his walking distance has been reducing over the last 2 years and he feels like his function is declining and affecting his quality of life. Ortho Exam General General: Yes no acute distress Neurologic: Yes alert and Yes oriented x3 Spine SPINE TESTING CERVICAL THORACIC LUMBAR Musculoskeletal Strength 0=absent - 5=normal Details: Examination the back shows midline and paraspinal tenderness. Prior midline incision well-healed. Neurologic function lower extremity shows 5 x 5 power normal shows normal sensations in all dermatomes. Coding Level of Care Code Off vis,est,level 4 Diagnoses Spinal stenosis of lumbar region with neurogenic claudication M48.062 Time Spent (min) 35 Comment Modifier 57 Assessment and Plan Assessment and Plan (1) Spinal stenosis of lumbar region with neurogenic claudication: Status: Acute Plan I again reviewed his recent x-rays as well as MRI of the lumbar spine. These show postsurgical changes of L3-5 laminectomy. There is severe lateral recess and foraminal stenosis worse towards the left from L3-5. He has mild to moderate right foraminal stenosis L5-S1. He has degenerative scoliosis with concavity to the left. His x-rays overall appear to indicate possible osteopenia, but patient has not had any DEXA scan which is scheduled tomorrow. L3-5 vacuum phenomenon in the disc space noticed on extension view. I again explained to him the imaging findings in detail. He has significantly deconditioned over the last few months and his walking distance continues to worsen. He has lumbar stenosis with neurogenic claudication especially in the foramina on the left side from L3-5. He has had numerous injections and nonsurgical treatment without much relief. He wishes to proceed with surgical intervention. Surgical options were discussed in detail. L3-5 anterior posterior fusion with indirect decompression was discussed in detail which would correct both the scoliosis as well as the stenosis. He might require cement augmentation of pedicle screws. All risk benefits and alternatives were discus sed in detail. The risks include but are not limited to infection, bleeding, need for blood transfusion, injury to nerves and vessels, visceral injury, ileus, DVT, pulmonary embolism, pneumonia, atelectasis, cardiopulmonary event, hardware failure, adjacent segment degeneration, need for further surgery, persistent pain, foot drop, cement embolism. Patient understands and agrees to proceed with surgery. Consent was signed.
[2024-03-01] MEDS: Cefazolin 2 GM in 0.9% Normal Saline (100mL Bag) 100 ML IV ×3 (07:45→20:42)
[2024-03-01] MEDS: Ropivacaine 0.5% 30 ML Vial (12:06)
--- NOTE | 2024-03-01 12:38 | PCM.POST.ANE ---
Anesthesia: Postop Eval I Current Vital Signs Temperature: 97.0 F Pulse Rate: 74 Blood Pressure: 150/71 Respiratory Rate: 16 Pulse Ox: 100 Oxygen Delivery Method: Simple Mask Oxygen Flow Rate (L/min): 6 Assessment Airway patent: Yes Spontaneous unlabored respirations: Yes Mental status: Awake and Calm nausea: No Vomiting: No Anesthesia Complication: No Fluid Hydration Crystalloid volume administer (ml): 2,000 Total IV fluid infused: 2,000 Progress Note Post-operative progress note: urine: 300 mL, EBL: 100 mL Anesthesia document: Postop Eval 1 completed: Yes
--- NOTE | 2024-03-01 12:43 | OP.PCM_ITS ---
Report of Operation Date of Procedure: 03/01/24 Description of Surgical Findings:: Preoperative diagnosis: L3-5 disc degeneration, degenerative scoliosis, foraminal stenosis with neurogenic claudication Postoperative diagnosis: Same Name of procedures L3-5 oblique lumbar interbody fusion (OLIF), minimally invasive left sided approach, lateral decubitus: ? L3-4 anterolateral spinal fusion 35758 ? L4-5 anterolateral fusion 49266/51 ? L3-4 insertion of cage 59000 ? L4-5 insertion of cage 37843/51 ? Bone graft aspirate left iliac crest separate incision ? Allograft cancellous chips Attending Surgeon: Dr. Jin Jackson Estimated blood loss: 100 mL Anesthesia: General Complications: None Indications: Patient is a 78-year-old pleasant gentleman who has had a long history of low back pain and bilateral buttock pain, left lower extremity radiation. He has had prior L3-5 laminectomy decompression. Xrays & MRI revealed L3-5 disc degeneration, degenerative scoliosis, foraminal stenosis. After undergoing a prolonged period of nonoperative treatment, the patient elected to undergo surgical decompression & fusion. All surgical options were discussed with the patient including anterior and posterior approaches. All risks and benefits associated with the procedure were explained to the patient. The risks include but are not limited to infection, bleeding, injury to nerves and vessels including major vessels like IVC and aorta, persistent paresthesia, persistent pain, dural tear, need for further procedures, adjacent segment degeneration, pseudoarthrosis, hardware failure, retrograde ejaculation, paralytic ileus, etc. Procedure: The patient was identified in the preoperative holding suite using Unique patient identifiers. Skin was marked, consent was reviewed, and all questions were answered. The patient was then brought back to the operative room. A surgical timeout was performed to make sure correct procedure was being done on the correct patient and all operative room staff were on the same page. General endotracheal anesthesia was then given to the patient. Sam catheter was inserted. The patient was then carefully positioned in right lateral decubitus position with the left side up on a regular OR table. Axillary roll was placed and all bony prominences were well- padded. Hip positioners were placed in the posterior buttocks and anterior sternal area. The surgical area was prepped and draped in usual fashion. Preoperative antibiotic was injected IV as preoperative antibiotic. A final timeout was then again done just before starting the procedure. A 2 inch incision oblique was taken in the left lower quadrant of the abdomen 2 fingerbreadths away from the iliac crest and the lower ribs. Sharp dissection with Bovie was carried out up to the fascia covering the external oblique. The external oblique, internal oblique and transversus abdominis muscles were split along the muscle fibers and retroperitoneal space was entered. Sponge sticks were utilized to move the bowel and peritoneum oai-ww-fah-way and psoas muscle was exposed staying within the retroperitoneal plane. [employer] retractor system was positioned and the retractor blade was applied onto the psoas. The interval between psoas and midline structures was developed and appropriate retractors were placed. Once adequate interval was cleared, a disc space was identified and a marker x-ray was taken. This identified the L4-5 disc level. The prepsoas interval was then traced superiorly to expose the L3-4 disc. Annulotomy was done with a long handled knife starting at L4-5. Pituitary was used to remove disc material. Curettes were used to prepare the endplates. Disc space spreaders were utilized to distract and increase the disc height. Near complete discectomy was performed. Trials of serially increasing sizes were used. A Jamshidi needle was used to aspirate bone marrow from the left anterior iliac crest through a separate incision and this aspirate was mixed with the allograft bone chips. A Depuy [place] cage of size of the 18 x 55 x 12 mm with 15 degrees lordosis was packed with corticocancellous allograft bone chips mixed with bone marrow aspirate. This was inserted into the L4-5 disc space. The retractors were then repositioned to expose the L3-4 disc and the procedure was repeated with complete discectomy and endplate preparation. Smaller disc distractors were also used to bluntly perform a contralateral annulotomy at both levels. Cage size was 18 x 55 x 12 mm at L3-4. AP and lateral C-arm pictures were taken to confirm good position of the cage. Some bone chips were also packed around the cages. Screw with washer was placed into the lower L4 body with a washer partially covering the cage at L4-5. Hemostasis was confirmed. The retractor blades were removed. Closure was done in layers with a continuous strand of # 1 Vicryl in all muscle layers. 2-0 Vicryl was used for subcutaneous tissue and 4-0 for Monocryl for the skin. Steri-Strips were applied and 4 x 4 gauze and Tegaderm were applied. Surgeon: Jin Jackson Admit VTE Documentation VTE Mechan Device Prophylaxis: SCD's Procedures Musculoskeletal [id number]: Other Procedure See Report
--- NOTE | 2024-03-01 12:46 | OP.PCM_ITS ---
Report of Operation Date of Procedure: 03/01/24 Description of Surgical Findings:: Preoperative diagnosis: L3-5 disc degeneration, degenerative scoliosis, foraminal stenosis with neurogenic claudication Postoperative diagnosis: Same Name of procedures: L3-5 posterior percutaneous pedicle screw instrumented fus ion with cement augmentation, prone: ? L3-4 posterior spinal fusion 08377 ? L3-5 posterior pedicle screw instrumentation 94118 ? L4-5 posterior fusion 10118/51 ? Allograft cancellous chips Attending Surgeon: Dr. Jin Jackson Asst surgeon: Dr. Manoj Curran Estimated blood loss: 100 mL (total for entire case) Anesthesia: General Complications: None Description of procedure: After the anterior procedure was complete, the patient was then turned supine. The patient was then transferred to Hector table in prone position. Back was prepped and draped in usual fashion. C-arm AP view was then taken. C-arm was positioned in a way that L3 was centralized and superior endplate of was parallel to the beam. Spinous process was centered between the pedicles. Midline was marked with skin marker and lateral borders of the pedicles were also marked. Skin marker was also utilized to jeana transversely across the middle of the pedicles at L3. 2 transverse paramedian incisions of 1 inch were placed. The fascia was incised vertically. Finger dissection was utilized to palpate the transverse process and facet joint. Viper Prime screws with towers were inserted and docked onto the transverse processes. This was then slowly moved medially to reach the superior articular process of L3. This was then confirmed on C-arm and then a mallet was utilized to drive the trocar into the pedicle going up to the medial wall of the pedicle on AP view. This was performed both sides. C-arm lateral view confirmed that the tip of the trocar was in the vertebral body, and the screw was advanced into the pedicle and vertebral body. This was repeated similarly at L4 and L5 bilaterally. Screw sizes were 7 x 55 mm at all levels bilaterally. Because of weak purchase due to osteoporosis, decision was made to augment the fixation with cement through the pedicle screws. Approximately 1 to 2 cc of cement was injected through the cannula of each screws under fluoroscopy. 80 mm precontoured titanium 5.5 mm lordotic saul on both sides were then passed through the screw extensions and reduced down to the screws with the help of Front Flip instrumentation system on both sides. AP and lateral view of the C-arm showed good positioning of the screws and cages. Final tightening with the torque screwdriver was then completed. Sofia was utilized to roughen the facet joint at L3-4 and L4-5 on the left side. Cancellous allograft bone chips mixed with bone marrow aspirate were then placed over this decorticated area. Hemostasis was achieved. Closure was done in layers with 0 Vicryls for the fascia, 2-0 Vicryls for the subcutaneous tissue, and Monocryl for the skin. Dermabond was applied. Dressings were applied covered with Tegaderm. The patient was then turned supine onto a hospital bed. The patient was extubated and taken to PACU in stable condition. The patient tolerated the procedure well and no complications occurred. Depuy [place] cage & Viper Prime minimally invasive pedicle screw instrumentation system was utilized in this case. No dural tear was identified intraoperatively. I was present for the entirety of the case and performed the surgery. Surgeon: Jin Jackson medical certification specialist: Manoj Curran Admit VTE Documentation VTE Mechan Device Prophylaxis: SCD's Procedures Musculoskeletal [id number]: Other Procedure See Report
--- NOTE | 2024-03-01 13:45 | POSTOPAN2_ITS ---
Anesthesia Postop Eval I Sum Postop Eval Completion status Anesthesia document: Postop Eval 1 completed: Yes Anesthesia Postop Eval I Summary Anesthesia Postop Eval I Summary: Anesthesia Postop Eval I: Assessment Summary Airway patent Yes 03/01/24 12:40 [email or web address] Spontaneous unlabored Yes 03/01/24 12:40 [email or web address] [email or web address] respirations Mental status Awake,Calm 03/01/24 12:40 [email or web address] nausea No 03/01/24 12:40 BOOTH [email or web address] Vomiting No 03/01/24 12:40 [email or web address] Anesthesia Postop Eval I: Fluid Summary Crystalloid volume administer 2,000 03/01/24 12:40 [email or web address] (ml) Colloids volume administered ( ml) Blood Product volume administered (ml) Total IV fluid infused 2,000 03/01/24 12:40 [email or web address] Anesthesia Postop Eval I: Summary Notes Anesthesia Complication No 03/01/24 12:40 [email or web address] Anesthesia Complication Comment: Post-operative progress note urine: 300 mL, EBL 03/01/24 12:40 [email or web address] : 100 mL Anesthesia: Postop Eval II Evaluation Mental status: Awake Pain Level: 2 nausea: No Vomiting: No Complications Anesthesia Complication: No
--- NOTE | 2024-03-01 13:45 | PCM.POSTANE2 ---
Anesthesia Postop Eval I Sum Postop Eval Completion status Anesthesia document: Postop Eval 1 completed: Yes Anesthesia Postop Eval I Summary Anesthesia Postop Eval I Summary: Anesthesia Postop Eval I: Assessment Summary Airway patent Yes 03/01/24 12:40 [email or web address] Spontaneous unlabored Yes 03/01/24 12:40 [email or web address] [email or web address] respirations Mental status Awake,Calm 03/01/24 12:40 [email or web address] [email or web address] [email or web address] nausea No 03/01/24 12:40 INSIDE [email or web address] Vomiting No 03/01/24 12:40 [email or web address] Anesthesia Postop Eval I: Fluid Summary Crystalloid volume administer 2,000 03/01/24 12:40 [email or web address] (ml) Colloids volume administered ( ml) Blood Product volume administered (ml) Total IV fluid infused 2,000 03/01/24 12:40 [email or web address] [email or web address] Anesthesia Postop Eval I: Summary Notes Anesthesia Complication No 03/01/24 12:40 INSIDE [email or web address] Anesthesia Complication Comment: Post-operative progress note urine: 300 mL, EBL 03/01/24 12:40 [email or web address] [email or web address] : 100 mL Anesthesia: Postop Eval II Evaluation Mental status: Awake Pain Level: 2 nausea: No Vomiting: No Complications Anesthesia Complication: No
[2024-03-01] MEDS: Methocarbamol 500 MG Tablet 1000 MG PO ×3 (15:05→21:09)
[2024-03-01] MEDS: Ketorolac 15 MG/ML Vial IV ×2 (15:10→21:08)
[2024-03-01] MEDS: oxyCODONE 5 MG Tablet PO (16:32)
[2024-03-01] MEDS: Potassium Chloride Oral Tablet 20 MEQ PO (16:33)
--- NOTE | 2024-03-01 16:52 | PCM.POSTANE2 ---
Anesthesia Postop Eval I Sum Postop Eval Completion status Anesthesia document: Postop Eval 1 completed: Yes Anesthesia Postop Eval I Summary Anesthesia Postop Eval I Summary: Anesthesia Postop Eval I: Assessment Summary Airway patent Yes 03/01/24 12:40 GEENA Spontaneous unlabored Yes 03/01/24 12:40 GEENA respirations Mental status Awake 03/01/24 13:45 nausea No 03/01/24 13:45 Vomiting No 03/01/24 13:45 Anesthesia Postop Eval I: Fluid Summary Crystalloid volume administer 2,000 03/01/24 12:40 GEENA (ml) Colloids volume administered ( ml) Blood Product volume administered (ml) Total IV fluid infused 2,000 03/01/24 12:40 GEENA Anesthesia Postop Eval I: Summary Notes Anesthesia Complication No 03/01/24 13:45 Anesthesia Complication Comment: Post-operative progress note urine: 300 mL, EBL 03/01/24 12:40 [email or web address] : 100 mL Anesthesia: Postop Eval II Evaluation Mental status: Awake Pain Level: 0 nausea: No Vomiting: No Complications Anesthesia Complication: No
--- NOTE | 2024-03-01 17:17 | HP.PCM.HOS_ITS ---
HPI - General General Date of Admission: 03/01/24 HPI Narrative QUINTIN ALBRIGHT, is a 78 M who presents [facility] Medical History Wears dentures Wears glasses History of steroid therapy Arthritis High cholesterol History of diverticulitis Gastric reflux Shortness of breath on exertion History of pain when walking History of stress test Cardiology follow-up encounter Thoracic aortic aneurysm History of irregular heartbeat Carpal tunnel syndrome Spinal stenosis at L4-L5 level Osteoarthritis GERD (gastroesophageal reflux disease) Former smoker Irregular heart beat Hypertension Home Medications ?Medication ?Instructions ?Recorded ?Last Taken ?Type fexofenadine 180 mg tablet 180 mg PO DAILY PRN Allergy 02/04/22 02/29/24 History Symptoms fluticasone propionate 50 1 spray intranasal DAILY PRN 02/04/22 02/29/24 History mcg/actuation nasal Allergy Symptoms spray,suspension labetalol 100 mg tablet 100 mg PO BID BP 02/04/22 03/01/24 03:30 History nabumetone 750 mg tablet 750 mg PO DAILY PAIN 02/04/22 02/29/24 12:00 History ondansetron HCl 4 mg tablet 4 mg PO Q8H PRN PRN Nausea 02/04/22 02/29/24 17:30 History rosuvastatin 5 mg tablet 5 mg PO QHS cholesterol 02/04/22 02/29/24 22:00 History oxycodone-acetaminophen 5 mg-325 1 tab PO Q8H PRN pain 03/27/22 03/01/24 03:30 History mg tablet gabapentin 100 mg capsule 300 mg PO Q12H PAIN 05/06/22 03/01/24 03:30 History meclizine 25 mg tablet 25 mg PO 4X/DAY PRN PRN Dizziness 08/05/23 02/29/24 17:30 Rx #20 tabs losartan 100 1 tab PO DAILY BP 02/09/24 02/29/24 12:00 History mg-hydrochlorothiazide 25 mg tablet potassium chloride 20 mEq 20 meq PO BID SUPPLEMENT 02/23/24 02/29/24 22:00 History tablet,extended release(part/cryst) Allergy/AdvReac Type Severity Reaction Status Date / Time No Known Allergies Allergy Verified 03/01/24 06:34 Family History (Updated 03/01/24 @ 07:[address] Sonny Ayala MD) Father Diabetes Mother Dementia Aneurysm Sister Diabetes Other Hypertension Surgical History Hx of abdominal surgery Hx of eye surgery Hx of surgical procedure Hx of hernia repair Hx of laminectomy History of carpal tunnel surgery Social History Smoking Status: Former smoker alcohol intake: former substance use type: does not use ROS ROS Narrative System reviewed and no additional complaints, except as documented. Vital Signs Vital Signs Vital Signs: 03/01/24 06:05 03/01/24 06:05 03/01/24 07:08 Temperature 98.2 F 98.2 F Temperature Source Temporal Pulse Rate 57 L 57 L Pulse Strength Respiratory Rate 16 16 Respiratory Effort Respiratory Depth Respiratory Pattern Normal Blood Pressure 132/72 H 132/72 H Blood Pressure Mean 92 Blood Pressure Source Monitor Blood Pressure Position Semi-Fowlers Blood Pressure Location Left Arm Baseline BP Pulse Ox 97 97 Oxygen Delivery Method Room Air Oxygen Flow Rate (L/min) 03/01/24 12:35 03/01/24 12:40 03/01/24 12:40 Temperature 97.0 F L 97.0 F L Temperature Source Temporal Pulse Rate 75 75 74 Pulse Strength Respiratory Rate 20 H 20 H 16 Respiratory Effort Respiratory Depth Respiratory Pattern Tachypnea Blood Pressure 150/71 H 159/106 H 150/71 H Blood Pressure Mean 97 123 Blood Pressure Source Monitor Monitor Blood Pressure Position Semi-Fowlers Semi-Fowlers Blood Pressure Location Right Arm Right Forearm Baseline BP 132/72 132/72 Pulse Ox 98 99 100 Oxygen Delivery Method Nasal Cannula Nasal Cannula Simple Mask Oxygen Flow Rate (L/min) 4 4 6 03/01/24 12:45 03/01/24 13:00 03/01/24 13:15 Temperature Temperature Source Pulse Rate 74 74 75 Pulse Strength Respiratory Rate 20 H 18 18 Respiratory Effort Respiratory Depth Respiratory Pattern Blood Pressure 156/102 H 159/100 H 154/97 H Blood Pressure Mean 120 119 116 Blood Pressure Source Monitor Monitor Monitor Blood Pressure Position Semi-Fowlers Semi-Fowlers Semi-Fowlers Blood Pressure Location Right Forearm Right Forearm Right Forearm Baseline BP 132/72 132/72 132/72 Pulse Ox 98 99 99 Oxygen Delivery Method Nasal Cannula Nasal Cannula Oxygen Flow Rate (L/min) 4 4 4 03/01/24 13:30 03/01/24 13:45 03/01/24 14:00 Temperature Temperature Source Pulse Rate 76 72 70 Pulse Strength Respiratory Rate 16 16 18 Respiratory Effort Respiratory Depth Respiratory Pattern Blood Pressure 162/96 H 138/78 H 145/74 H Blood Pressure Mean 118 98 97 Blood Pressure Source Monitor Monitor Monitor Blood Pressure Position Semi-Fowlers Semi-Fowlers Semi-Fowlers Blood Pressure Location Right Forearm Right Forearm Right Forearm Baseline BP 132/72 132/72 132/72 Pulse Ox 99 99 98 Oxygen Delivery Method Nasal Cannula Nasal Cannula Nasal Cannula Oxygen Flow Rate (L/min) 4 4 4 03/01/24 14:15 03/01/24 14:30 03/01/24 15:23 Temperature 97.7 F L 97.9 F Temperature Source Temporal Oral Pulse Rate 79 74 81 Pulse Strength Respiratory Rate 14 16 16 Respiratory Effort Respiratory Depth Respiratory Pattern Blood Pressure 130/74 H 151/77 H 155/91 H Blood Pressure Mean 92 101 112 Blood Pressure Source Monitor Monitor Monitor Blood Pressure Position Semi-Fowlers Semi-Fowlers Semi-Fowlers Blood Pressure Location Right Forearm Right Forearm Right Arm Baseline BP 132/72 132/72 Pulse Ox 97 97 96 Oxygen Delivery Method Nasal Cannula Nasal Cannula Nasal Cannula Oxygen Flow Rate (L/min) 4 4 4 03/01/24 15:23 03/01/24 15:29 03/01/24 15:32 Temperature 97.9 F Temperature Source Oral Pulse Rate 81 Pulse Strength Normal (2+) Respiratory Rate 16 Respiratory Effort Normal Respiratory Depth Normal Respiratory Pattern Normal Blood Pressure 155/91 H Blood Pressure Mean 112 Blood Pressure Source Blood Pressure Position Blood Pressure Location Baseline BP Pulse Ox 96 Oxygen Delivery Method Nasal Cannula Room Air Oxygen Flow Rate (L/min) 4 03/01/24 16:37 03/01/24 16:56 Temperature 98.2 F 97.0 F L Temperature Source Oral Pulse Rate 82 74 Pulse Strength Respiratory Rate 16 16 Respiratory Effort Respiratory Depth Respiratory Pattern Blood Pressure 159/88 H 150/71 H Blood Pressure Mean 111 Blood Pressure Source Monitor Blood Pressure Position Semi-Fowlers Blood Pressure Location Right Arm Baseline BP Pulse Ox 98 100 Oxygen Delivery Method Nasal Cannula Simple Mask Oxygen Flow Rate (L/min) 4 6 Weight Weight: 227 lb 1.218 oz Body Mass Index (BMI) 32.5 Results Lab / Micro Data 02/10/24 09:09 02/10/24 09:09 Imaging Radiology Impression Lumbar Spine X-Ray 03/01/24 06:30 IMPRESSION: Intraoperative imaging provided for fusion and disc replacement at the L3-L4 and L4-L5 levels. Electronically Signed: Roman Friedman MD at 13:25 EDT ,
--- NOTE | 2024-03-01 17:18 | PCM.PN.HOSP ---
Reason for Visit Reason for Visit: Diagnoses Encounter for other preprocedural examination (03/01/24) Subjective Subjective Heart surgery today, pain is manageable but still ongoing Objective Data Objective Data Vital Signs: Vital Signs Temp Pulse Resp BP Pulse Ox O2 Del Method O2 Flow Rate 97.0 F L 74 16 150/71 H 100 Simple Mask 6 03/01/24 16:56 03/01/24 16:56 03/01/24 16:56 03/01/24 16:56 03/01/24 16:56 03/01/24 16:56 03/01/24 16:56 Oxygen Flow Rate (L/min) 6 Oxygen Delivery Method Simple Mask Weight: 227 lb 1.218 oz Body Mass Index (BMI) 32.5 Intake & Output: Intake and Output for Last 24 Hours 02/28/24 02/29/24 03/01/24 23:59 23:59 23:59 Intake Total 2852 / 2852 Output Total 300 / 300 Balance 2552 / 2552 Lab / Micro Data Attestation: I reviewed the patient's lab results. 02/10/24 09:09 02/10/24 09:09 Micro: Microbiology 02/10/24 09:09 Swab (Method) Nasal Screen MRSA/MSSA - Final Radiography Diagnostic Testing: Radiology Impression Lumbar Spine X-Ray 03/01/24 06:30 IMPRESSION: Intraoperative imaging provided for fusion and disc replacement at the L3-L4 and L4-L5 levels. Electronically Signed: Roman Friedman MD at 13:25 EDT , Physical Exam Const alert, oriented x3, no apparent distress and well nourished Eyes PERRL and EOMs intact bilaterally Neck no lymphadenopathy and supple Resp normal respiratory effort and no retractions Cardio regular rate and regular rhythm GI normal to inspection, nondistended, normoactive bowel sounds and soft to palpation Neuro oriented x3 Assessment & Plan Assessment/Plan (1) Back pain: QUALIFIERS: Back pain location: low back pain Chronicity: chronic Back pain laterality: right Sciatica presence: with sciatica Sciatica laterality: sciatica of right side Qualified Code(s): M54.41 - Lumbago with sciatica, right side; G89.29 - Other chronic pain PLAN: Plan 78-year-old male was admitted to the hospital for management of L3-5 disc degeneration, degenerative scoliosis foraminal stenosis with neurogenic claudication and underwent L3-5 posterior percutaneous pedicle screw instrumented fusion with cement augmentation. He is currently postprocedure and recovering well. #Spinal stenosis: He is now postoperative day 0 -On dexamethasone, hydromorphone, ketorolac, methocarbamol, oxycodone for pain relief -Continue pain management as per primary team postoperatively #Hypertension: 150/91 blood pressure, pulse 74 -Continue home medications with losartan and labetalol -Ongoing pain contributing to the blood pressure, continue to monitor, no need to increase medications as now #Dyslipidemia: Continue atorvastatin 10 mg daily #Transient A-fib: Not on any anticoagulation #Opioid-induced constipation -Start MiraLAX 17 g twice daily -Early mobilization as suitable per the orthopedic team #DVT prophylaxis: Consider restarting enoxaparin 40 mg subcu daily if considered safe by the orthopedics team
[2024-03-01] MEDS: Senna/Docusate Sodium 1 Tablet 2 TABLET PO (21:08)
[2024-03-01] MEDS: Atorvastatin Calcium 10 MG Tablet PO (21:08)
[2024-03-01] MEDS: Labetalol 100 MG Tablet PO (21:08)
[2024-03-01] MEDS: Gabapentin 300 MG Capsule PO (21:09)
[2024-03-02] VITALS (7 sets, daily range): BP systolic 133–156; BP diastolic 59–79; PULSE 67–80; RESP 16–19; TEMP 36.6–37.1; O2SAT 92–100
[2024-03-02] MEDS: Morphine 4 MG/ML Syringe IV ×2 (02:15→15:53)
[2024-03-02] MEDS: oxyCODONE 5 MG Tablet PO ×4 (04:07→20:24)
[2024-03-02] MEDS: Methocarbamol 500 MG Tablet 1000 MG PO ×4 (05:29→23:52)
[2024-03-02] MEDS: Acetaminophen 500 MG Tablet 1000 MG PO ×3 (05:30→21:55)
[2024-03-02] MEDS: 0.9% Saline Lock 10 ML Syringe IV ×2 (05:30→15:53)
[2024-03-02] MEDS: Ketorolac 15 MG/ML Vial IV (05:30)
[2024-03-02 07:23] LABS: Hematocrit 34.8 % (40-54); Hemoglobin 11.7 g/dL (13.0-16.5); Mean Corp Hgb Conc 33.6 g/dL (32-36); Mean Corpuscular Hgb 28.9 pg (27.0-32.0); Mean Corpuscular Volume 85.9 fL (80-94); Mean Platelet Vol. 10.4 fl (6.2-12.0); Platelet Count 203 K/mm3 (150-450); RBC Distribution Width CV 12.3 % (11.6-14.6); RBC Distribution Width SD 38.5 fl (35.1-43.9); Red Blood Count 4.05 M/mm3 (4.6-6.2); White Blood Count 7.8 K/mm3 (4.4-11.0)
[2024-03-02] MEDS: Potassium Chloride Oral Tablet 20 MEQ PO ×2 (08:51→17:58)
--- NOTE | 2024-03-02 08:52 | PN.ORTHO_ITS ---
Subjective Subjective Postop day 1 status post L3-5 fusion. Patient has had pain issues overnight. He is much more comfortable this morning. He was able to stand at bedside with nursing help casting and pasting supervisor today. He did not ambulate yesterday. No flatus yet. Objective Data Objective Data Vital Signs: Vital Signs Temp Pulse Resp BP Pulse Ox O2 Del Method O2 Flow Rate 98.4 F 80 18 148/63 H 95 Room Air 2 03/02/24 05:24 03/02/24 05:24 03/02/24 05:24 03/02/24 05:24 03/02/24 05:24 03/02/24 05:24 03/02/24 02:16 Oxygen Flow Rate (L/min) 2 Oxygen Delivery Method Room Air Weight: 227 lb 1.218 oz Body Mass Index (BMI) 32.5 Intake & Output: Intake and Output for Last 24 Hours 02/29/24 03/01/24 03/02/24 23:59 23:59 23:59 Intake Total 3212 / 3712 800 / 800 Output Total 300 / 500 800 / 800 Balance 2912 / 3212 0 / 0 Lab / Micro Data 03/02/24 06:44 02/10/24 09:09 Labs: Laboratory Results - last 24 hr 03/02/24 06:44: WBC 7.8, RBC 4.05 L, Hgb 11.7 L, Hct 34.8 L, MCV 85.9, MCH 28.9, MCHC 33.6, RDW Std Deviation 38.5, RDW Coeff of Rocío 12.3, Plt Count 203, MPV 10.4 Micro: Microbiology 02/10/24 09:09 Swab (Method) Nasal Screen MRSA/MSSA - Final Radiography Diagnostic Testing: Radiology Impression Lumbar Spine X-Ray 03/01/24 06:30 IMPRESSION: Intraoperative imaging provided for fusion and disc replacement at the L3-L4 and L4-L5 levels. Electronically Signed: Roman Friedman MD at 13:25 EDT , Physical Exam Narrative Dressing?CDI. Neurologic evaluation of lower extremity shows 5 x 5 power normal shows normal sensations in all dermatomes. Assessment & Plan Assessment/Plan (1) Status post lumbar spinal fusion: PLAN: Plan Postop day 1 status post L3-5 fusion. No flatus yet. Continue clear liquids. Will start p.o. Dulcolax this morning. PT OT mobilization. Explained need for out of bed mobility to reduce pain. Upright x-rays ordered for today. Discharge pending flatus and PT clearance.
[2024-03-02] MEDS: Senna/Docusate Sodium 1 Tablet 2 TABLET PO ×2 (08:57→21:55)
[2024-03-02] MEDS: Losartan Potassium 100 MG Tablet PO (08:57)
[2024-03-02] MEDS: Labetalol 100 MG Tablet PO ×2 (08:58→21:57)
[2024-03-02] MEDS: hydroCHLOROthiazide 25 MG Tablet PO (08:58)
[2024-03-02] MEDS: Gabapentin 300 MG Capsule PO ×2 (09:03→22:01)
--- NOTE | 2024-03-02 09:59 | PN_ITS ---
Subjective Subjective Patient seen and examined. He complained of some back pain. He denied any fever, chills, cough, chest pain, palpitations, dizziness, nausea, vomiting or any other symptoms. Today is POD 1 for spinal fusion of L3-L5. Review of systems is otherwise negative. Objective Data Objective Data Vital Signs: Vital Signs Temp Pulse Resp BP Pulse Ox O2 Del Method O2 Flow Rate 98.4 F 68 16 155/79 H 94 Room Air 2 03/02/24 08:54 03/02/24 08:54 03/02/24 08:54 03/02/24 08:54 03/02/24 08:54 03/02/24 09:13 03/02/24 02:16 Oxygen Flow Rate (L/min) 2 Oxygen Delivery Method Room Air Weight: 227 lb 1.218 oz Body Mass Index (BMI) 32.5 Intake & Output: Intake and Output for Last 24 Hours 02/29/24 03/01/24 03/02/24 23:59 23:59 23:59 Intake Total 3212 / 3712 800 / 800 Output Total 300 / 500 800 / 800 Balance 2912 / 3212 0 / 0 Lab / Micro Data 03/02/24 06:44 02/10/24 09:09 Labs: Laboratory Results - last 24 hr 03/02/24 06:44: WBC 7.8, RBC 4.05 L, Hgb 11.7 L, Hct 34.8 L, MCV 85.9, MCH 28.9, MCHC 33.6, RDW Std Deviation 38.5, RDW Coeff of [place] 12.3, Plt Count 203, MPV 10.4 Micro: Microbiology 02/10/24 09:09 Swab (Method) Nasal Screen MRSA/MSSA - Final Radiography Diagnostic Testing: Radiology Impression Lumbar Spine X-Ray 03/01/24 06:30 IMPRESSION: Intraoperative imaging provided for fusion and disc replacement at the L3-L4 and L4-L5 levels. Electronically Signed: Roman Friedman MD at 13:25 EDT , Physical Exam Const alert, oriented x3 and no apparent distress General Appearance: cooperative and well developed HEENT normocephalic, head/scalp atraumatic, moist oral mucous membranes and oropharynx normal Eyes PERRL and EOMs intact bilaterally Neck no lymphadenopathy and supple Lymph Lymphatic: no lymphadenopathy noted and no lymphedema noted Resp normal respiratory effort, normal air movement and clear to auscultation bilaterally Cardio regular rate, regular rhythm, S1 normal heart sound, S2 normal heart sound and no murmurs GI normal to inspection, nondistended, normoactive bowel sounds, soft to palpation, non-tender and non-distended Extremity normal capillary refill, no clubbing, cyanosis or edema and no calf tenderness General Extremity: no tenderness to palpation of joints or extremities Skin General Skin Exam: no breakdown Neuro CN's II-XII intact bilaterally, no focal motor deficits, no sensory deficits noted and deep tendon reflexes 2+ bilaterally Motor Exam: strength 5/5 throughout and general weakness Psych thought process normal and cooperative Appearance: appropriate Assessment & Plan Assessment/Plan (1) Status post lumbar spinal fusion: PLAN: Plan #Lumbar spinal stenosis s/p lumbar posterior spinal fusion of L3-L5 * today is POD 1. * pain management as per spin surgery * PT/OT on board * incentive spirometry. * fall precautions * #Hypertension; on losartan and labetalol as well as HCTZ. IV hydralazine prn #Hyperlipidemia: on statin #Afib: had transient afib yesterday. #Constipation: thought to be opioid induced. On miralax. DVT prophylaxis: as per primary service. SCDs. Charges/Coding Visit Charges Inpatient E&M: 38730 Subs Hosp L2
[2024-03-02 10:16] LABS: Anion Gap 8 (5-15); BUN 13 mg/dL (7-18); BUN/Creat Ratio 12.6 RATIO (10-20); Calcium,Total 8.6 mg/dL (8.5-10.1); Chloride 106 mmol/L (98-107); Creatinine, Serum 1.03 mg/dL (0.70-1.30); EST Glomerular Filtration Rate 75 mL/min (>60); Est Glom Filt Rate - Afr Amer 90 mL/min (>60); Estimated Creatinine Clearance 73.35 ml/min; Glucose 122 mg/dL (74-106); Potassium 3.5 mmol/L (3.5-5.1); Sodium Level 142 mmol/L (136-145)
--- NOTE | 2024-03-02 10:40 | RAD_ITS ---
STUDY: X-RAY - LUMBAR SPINE REASON FOR EXAM: Male, 78 years old. S/p fusion -- Please do upright AP lateral TECHNIQUE: 2 view(s) of the lumbar spine were obtained. COMPARISON: Comparison is made with prior study dated January 14, 2024. FINDINGS: Normal lumbar lordosis. There is a mild dextroscoliosis of the lumbar spine. There is a normal alignment of the vertebrae. The patient is status post laminectomy and fusion at the L3-L4 and L4-L5 levels with evidence of prosthetic disc placement. There is scattered atherosclerotic calcification of the abdominal aorta without a demonstrated aneurysm. RAD/Lumbar Spine 2 or 3 Views IMPRESSION: Status post fusion at the L3-L4 and L4-L5 levels with prosthetic disc placement. Electronically Signed: Roman Friedman MD at 13:36 EDT ,
[2024-03-02] MEDS: Bisacodyl 5 MG Tablet PO (11:25)
[2024-03-02] MEDS: Meloxicam 15 MG Tablet PO (14:23)
[2024-03-02] MEDS: Menthol/Lanolin/Calamine/Znox 113 GM Tube 1 APPLIC TOPICAL ×2 (14:24→21:56)
--- NOTE | 2024-03-02 15:34 | CASEMGMT ---
BARON RICKS Assessment: Face to Face with pt for initial transition planning/care coordination assessment. RN MILLICENT introduced self and role at [facility], pt voices understanding and consents to assessment. Pt lying in bed in pain, nurse aware. sitting at bedside. Pt is A&O x4 and answers all questions appropriately at this time. Care providers, pharmacy, and demographics verified/updated. Admitting Dx: 360 Lumbar Fusion L3-4 and L4-5 PCP: Geovanny Specialists: Manuel - ortho, Adelina - pain management, Dominic - [facility] Preferred Pharmacy: [facility] Insurance: [employer] Prescription Benefit: yes LNOK: [place] - Living Arrangements: Pt lives with in a 1 story with 2 steps and handrails to enter. Pt states I with ADLs and IADLs. Transportation: Pt drives self and denies concerns with transportation. able to transport pt until able to drive self again. DME: cane, walker, shower bench, high rise toilet, lift chair HHC/SNF: Denies Hx of. Pt states no concerns with going home at time of dc. Pt states no further concerns/needs. CM to follow. Advised pt to ask CM if any further question/concerns/needs arise, voices understanding. Pt Goal: Home Plan: Home Carlos A DRAPER CM
[2024-03-02] MEDS: Atorvastatin Calcium 10 MG Tablet PO (21:55)
[2024-03-03 05:36] VITALS: BP 129/74; PULSE 80; RESP 19; TEMP 36.8; O2SAT 97
[2024-03-03] MEDS: Methocarbamol 500 MG Tablet 1000 MG PO ×4 (05:43→22:17)
[2024-03-03] MEDS: Acetaminophen 500 MG Tablet 1000 MG PO ×3 (05:43→22:11)
[2024-03-03] MEDS: 0.9% Saline Lock 10 ML Syringe IV ×3 (05:46→22:11)
[2024-03-03] MEDS: oxyCODONE 5 MG Tablet PO ×3 (06:44→22:13)
[2024-03-03 09:10] VITALS: BP 157/84; PULSE 80; RESP 16; TEMP 36.8; O2SAT 96
[2024-03-03] MEDS: Morphine 4 MG/ML Syringe IV ×2 (09:23→14:42)
[2024-03-03] MEDS: Bisacodyl 10 MG Suppository RC (09:24)
[2024-03-03] MEDS: Potassium Chloride Oral Tablet 20 MEQ PO ×2 (09:28→16:34)
[2024-03-03] MEDS: Senna/Docusate Sodium 1 Tablet 2 TABLET PO (09:28)
[2024-03-03] MEDS: Losartan Potassium 100 MG Tablet PO (09:28)
[2024-03-03] MEDS: Meloxicam 15 MG Tablet PO (09:29)
[2024-03-03] MEDS: hydroCHLOROthiazide 25 MG Tablet PO (09:29)
[2024-03-03] MEDS: Labetalol 100 MG Tablet PO ×2 (09:30→22:12)
[2024-03-03] MEDS: Gabapentin 300 MG Capsule PO ×2 (09:39→22:11)
[2024-03-03] MEDS: Bisacodyl 5 MG Tablet PO (09:39)
--- NOTE | 2024-03-03 11:30 | PCM.PROGNOTE ---
Subjective Subjective Patient seen and examined. He said his pain was worse today. He said he worked with physical therapy yesterday but thinks he may have overexerted himself leading to the pain. He does not feel his pain meds are really helping with the pain much. Objective Data Objective Data Vital Signs: Vital Signs Temp Pulse Resp BP Pulse Ox O2 Del Method O2 Flow Rate 98.2 F 80 16 157/84 H 96 Room Air 2 03/03/24 09:10 03/03/24 09:10 03/03/24 09:10 03/03/24 09:10 03/03/24 09:10 03/03/24 09:10 03/02/24 02:16 Oxygen Flow Rate (L/min) 2 Oxygen Delivery Method Room Air Weight: 227 lb 1.218 oz Body Mass Index (BMI) 32.5 Intake & Output: Intake and Output for Last 24 Hours 03/01/24 03/02/24 03/03/24 23:59 23:59 23:59 Intake Total 3212 / 3712 2185 / 2665 840 / 840 Output Total 300 / 500 3150 / 4550 2800 / 2800 Balance 2912 / 3212 -965 / -1885 -1960 / -1960 Lab / Micro Data 03/02/24 06:44 03/02/24 06:44 Micro: Microbiology 02/10/24 09:09 Swab (Method) Nasal Screen MRSA/MSSA - Final Radiography Diagnostic Testing: Radiology Impression Lumbar Spine X-Ray 03/02/24 10:40 IMPRESSION: Status post fusion at the L3-L4 and L4-L5 levels with prosthetic disc placement. Electronically Signed: Roman Friedman MD at 13:36 EDT , Physical Exam Const alert, oriented x3, no apparent distress and well nourished General Appearance: cooperative and well developed HEENT normocephalic, head/scalp atraumatic, moist oral mucous membranes and oropharynx normal Eyes PERRL and EOMs intact bilaterally Neck no lymphadenopathy and supple Lymph Lymphatic: no lymphadenopathy noted and no lymphedema noted Resp normal respiratory effort, normal air movement, no retractions and clear to auscultation bilaterally Cardio regular rate, regular rhythm, S1 normal heart sound, S2 normal heart sound and no murmurs GI normal to inspection, nondistended, normoactive bowel sounds, soft to palpation, non-tender and non-distended Extremity normal capillary refill, no clubbing, cyanosis or edema and no calf tenderness General Extremity: no tenderness to palpation of joints or extremities Skin General Skin Exam: no breakdown Neuro oriented x3, CN's II-XII intact bilaterally, no focal motor deficits, no sensory deficits noted and deep tendon reflexes 2+ bilaterally Motor Exam: strength 5/5 throughout and general weakness Psych thought process normal and cooperative Appearance: appropriate Assessment & Plan Assessment/Plan (1) Status post lumbar spinal fusion: PLAN: Plan #Lumbar spinal stenosis s/p lumbar posterior spinal fusion of L3-L5 today is POD 2. pain management as per spin surgery PT/OT on board incentive spirometry. fall precautions #Hypertension; on losartan and labetalol as well as HCTZ. IV hydralazine prn #Hyperlipidemia: on statin #Afib: had transient afib yesterday. #Constipation: thought to be opioid induced. On miralax. DVT prophylaxis: as per primary service. SCDs. Charges/Coding Visit Charges Inpatient E&M: 14280 Subs Hosp L2
[2024-03-03] MEDS: Ensure Surgery 237 ML LIQUID PO ×2 (12:02→16:36)
[2024-03-03 14:29] VITALS: BP 115/68; PULSE 67; RESP 16; TEMP 36.6; O2SAT 97
[2024-03-03] MEDS: Ondansetron 4 MG/2 ML Vial IV (14:42)
--- NOTE | 2024-03-03 15:56 | CASEMGMT ---
BARON CM into pt room, pt would like to do outpatient therapy instead of HHC. Green sheet and order in chart. Provided verbal list of local outpatient therapy facilities, pt would like to go to [facility]. Updated Ortho.
[2024-03-03] MEDS: Menthol/Lanolin/Calamine/Znox 113 GM Tube 1 APPLIC TOPICAL ×2 (16:15→22:14)
[2024-03-03 21:59] VITALS: BP 149/79; PULSE 78; RESP 18; TEMP 37.1; O2SAT 97
[2024-03-03] MEDS: Atorvastatin Calcium 10 MG Tablet PO (22:12)
[2024-03-04 02:18] VITALS: BP 148/76; PULSE 68; RESP 20; TEMP 37; O2SAT 93
[2024-03-04 05:21] VITALS: BP 144/66; PULSE 61; RESP 18; TEMP 36.9; O2SAT 95
[2024-03-04] MEDS: oxyCODONE 5 MG Tablet PO ×2 (05:23→12:58)
[2024-03-04] MEDS: Menthol/Lanolin/Calamine/Znox 113 GM Tube 1 APPLIC TOPICAL ×2 (05:23→12:58)
[2024-03-04] MEDS: Acetaminophen 500 MG Tablet 1000 MG PO ×2 (05:23→12:58)
[2024-03-04] MEDS: Methocarbamol 500 MG Tablet 1000 MG PO ×2 (05:24→12:47)
[2024-03-04 08:30] VITALS: PULSE 80; RESP 18
[2024-03-04] MEDS: Potassium Chloride Oral Tablet 20 MEQ PO (08:41)
[2024-03-04] MEDS: hydroCHLOROthiazide 25 MG Tablet PO (09:36)
[2024-03-04] MEDS: Losartan Potassium 100 MG Tablet PO (09:36)
[2024-03-04] MEDS: Meloxicam 15 MG Tablet PO (09:36)
[2024-03-04] MEDS: Labetalol 100 MG Tablet PO (09:37)
[2024-03-04 09:40] VITALS: BP 141/71; PULSE 77; RESP 18; TEMP 36.6; O2SAT 98
[2024-03-04] MEDS: Gabapentin 300 MG Capsule PO (09:45)
--- NOTE | 2024-03-04 10:12 | PN_ITS ---
Subjective Subjective Patient seen and examined. Pain is better controlled today he had no complaints. Review of systems otherwise negative. He is on cefazolin discharged by spine surgery today. Objective Data Objective Data Vital Signs: Vital Signs Temp Pulse Resp BP Pulse Ox O2 Del Method O2 Flow Rate 98 F 77 18 141/71 H 98 Room Air 2 03/04/24 09:40 03/04/24 09:40 03/04/24 09:40 03/04/24 09:40 03/04/24 09:40 03/04/24 09:40 03/02/24 02:16 Oxygen Flow Rate (L/min) 2 Oxygen Delivery Method Room Air Weight: 227 lb 1.218 oz Body Mass Index (BMI) 32.5 Intake & Output: Intake and Output for Last 24 Hours 03/02/24 03/03/24 03/04/24 23:59 23:59 23:59 Intake Total 2185 / 2665 1040 / 1040 Output Total 3150 / 4550 4025 / 4025 1100 / 1100 Balance -965 / -1885 -2985 / -2985 -1100 / -1100 Lab / Micro Data 03/02/24 06:44 03/02/24 06:44 Micro: Microbiology 02/10/24 09:09 Swab (Method) Nasal Screen MRSA/MSSA - Final Physical Exam Const alert, oriented x3, no apparent distress and well nourished General Appearance: cooperative and well developed HEENT normocephalic, head/scalp atraumatic, moist oral mucous membranes and oropharynx normal Eyes PERRL and EOMs intact bilaterally Neck no lymphadenopathy and supple Lymph Lymphatic: no lymphadenopathy noted and no lymphedema noted Resp normal respiratory effort, normal air movement, no retractions and clear to auscultation bilaterally Cardio regular rate, regular rhythm, S1 normal heart sound, S2 normal heart sound and no murmurs GI normal to inspection, nondistended, normoactive bowel sounds, soft to palpation, non-tender and non-distended Extremity normal capillary refill, no clubbing, cyanosis or edema and no calf tenderness General Extremity: no tenderness to palpation of joints or extremities Skin General Skin Exam: no breakdown Neuro oriented x3, CN's II-XII intact bilaterally, no focal motor deficits, no sensory deficits noted and deep tendon reflexes 2+ bilaterally Motor Exam: strength 5/5 throughout and general weakness Psych thought process normal and cooperative Appearance: appropriate Assessment & Plan Assessment/Plan (1) Status post lumbar spinal fusion: PLAN: Plan #Lumbar spinal stenosis s/p lumbar posterior spinal fusion of L3-L5 * today is POD 3. * pain management as per spin surgery * PT/OT on board * incentive spirometry. * fall precautions * #Hypertension; on losartan and labetalol as well as HCTZ. IV hydralazine prn #Hyperlipidemia: on statin #Afib:had transient afib during this admission post op, but subsequently resolved. #Constipation: thought to be opioid induced. On miralax. DVT prophylaxis: as per primary service. SCDs. Disposition: stable for dc per hospitalist standpoint. Charges/Coding Visit Charges Inpatient E&M: 67490 Subs Hosp L2
[2024-03-04] MEDS: Ensure Surgery 237 ML LIQUID PO (12:48)
--- NOTE | 2024-03-04 13:15 | PCM.PN.ORT ---
Subjective Subjective Postop day 3 status post lumbar fusion. Sitting on recliner. Pain well-controlled. Ambulated multiple times in the hallway. Has had bowel movement. Tolerating solid diet. Objective Data Objective Data Vital Signs: Vital Signs Temp Pulse Resp BP Pulse Ox O2 Del Method O2 Flow Rate 98 F 77 18 141/71 H 98 Room Air 2 03/04/24 09:40 03/04/24 09:40 03/04/24 09:40 03/04/24 09:40 03/04/24 09:40 03/04/24 09:40 03/02/24 02:16 Oxygen Flow Rate (L/min) 2 Oxygen Delivery Method Room Air Weight: 227 lb 1.218 oz Body Mass Index (BMI) 32.5 Intake & Output: Intake and Output for Last 24 Hours 03/02/24 03/03/24 03/04/24 23:59 23:59 23:59 Intake Total 2185 / 2665 1040 / 1040 300 / 300 Output Total 3150 / 4550 4025 / 4025 1100 / 1100 Balance -965 / -1885 -2985 / -2985 -800 / -800 Lab / Micro Data 03/02/24 06:44 03/02/24 06:44 Micro: Microbiology 02/10/24 09:09 Swab (Method) Nasal Screen MRSA/MSSA - Final Physical Exam Narrative Dressing?CDI. Neurologic evaluation of lower extremity shows 5 x 5 power normal shows normal sensations in all dermatomes. Assessment & Plan Assessment/Plan (1) Status post lumbar spinal fusion: PLAN: Plan Postop day 3 status post L3-5 fusion. Cleared PT, outpatient PT recommended. Tolerating solid diet without any nausea vomiting. Okay to discharge home and follow-up in clinic as scheduled. No lifting bending twisting.
[2024-03-04 14:30] VITALS: PULSE 81; O2SAT 98
--- NOTE | 2024-03-04 15:11 | NURSING ---
1510 Dr Jackson called about pain meds for discharge. Ok per Dr Jackson to take Percocet-patient has at home. follow up with Dr Jackson for additional need for pain meds. Anni Chung RN
--- NOTE | 2024-03-04 15:39 | NURSING ---
1520 Talked to [place] Pharmacist, Per Dr Jackson will not fill Oxycodone he prescribed for Discharge.Dr Jackson ok with Patient taking Percocet-has at home. Anni Chung RN
[2024-03-04 15:50] VITALS: BP 141/70; PULSE 71; RESP 18; TEMP 37.1; O2SAT 97
== END 2024-03-04 16:32 | disposition home or self-care (01) | DRG 455 ==
LOC: ACINP 05:12 → MS3 13:08
PROVIDERS: Anesthesiology; Admitting Provider Orthopaedic Surgery Orthopaedic Surgery of the Spine; PCP Family Medicine; Referring Provider Orthopaedic Surgery Orthopaedic Surgery of the Spine; Visit Provider Orthopaedic Surgery Orthopaedic Surgery of the Spine
PROC: 0SG10A0 Fusion of 2 or more Lumbar Vertebral Joints with Interbody Fusion Device, Anterior Approach, Anterior Column, Open Approach (ICD-10-PCS; principal; 2024-03-01 07:00)
DX: M48.062 Spinal stenosis, lumbar region with neurogenic claudication (principal); E78.5 Hyperlipidemia, unspecified; I48.91 Unspecified atrial fibrillation; I10 Essential (primary) hypertension; M48.07 Spinal stenosis, lumbosacral region; M41.9 Scoliosis, unspecified; M51.16 Intervertebral disc disorders with radiculopathy, lumbar region; K59.03 Drug induced constipation; M81.0 Age-related osteoporosis without current pathological fracture; M85.80 Other specified disorders of bone density and structure, unspecified site; Z87.891 Personal history of nicotine dependence; T40.2X5A Adverse effect of other opioids, initial encounter; G89.29 Other chronic pain
CPT/HCPCS: 36415; 72100; 76000; 80048; 83735; 85025; 85027; 86703; 86706; 86708; 86803; 87077; 87081; 93005; 94668; 97110; 97116; 97162; 97166; 97530; 97535; C1713; J7040; J7120; A4216; J2405; J3475

== ENCOUNTER 2024-04-07 12:30 | Outpatient (RCR) | payer MEDICARE, SELFPAY ==
--- NOTE | 2024-03-10 15:05 | HP.PTEVAL ---
Patient's Visit Information Visit Information Visit Information: QUINTIN ALBRIGHT is a 78 year old M referred to Physical Therapy by Dr. Jin Jackson MD with a diagnosis of S/P Lumbar fusion L3/L4 and L4/L5. Date of Evaluation: 03/10/24 Physical Therapist: MONTEZ Marques Visit Plan Frequency: 2x /Week Duration: 2 Months Plan: 2X/ week for 8 weeks for neutral spine core stability starting in supine and progressing to sitting and standing when appropriate, (no bending twisting, or lifting for 3 months), gait training, gait endurance, postural exercises, sit to supine transfers with HEP HEP: PT, LAQ, Supine hip adduction, standing heel and toe raises Subjective Subjective: (March 01) 9 days ago had fusionL3/L4 and L4/L5. He has not been using a cane much. He is in quite a bit of pain still. He has bone growth stimulator started yesterday. He is taking peracet 4x/ day. He is sitting up much of the day. He tries to walk around the house as much as he can throughout the day. said no twisting, bending, lifting for 3 months. 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 He feels that his balance is ok. Pain back pain: Pain Intensity (Out of 10): 9 Comment: took pain meds 30 min ago. B leg pain to knee: Pain Intensity (Out of 10): 0 Comment: once in awhile and with changing position Objective Objective: Gait: walks with shorter strides and guarded trunk with no trunk rotation or arm swing. His trunk is shifted away from his L side with gait. Instructed in good upright posture Had pt walk with a rolling walker and he felt less pain walking with it. Instructed the pt to walk using a rollator for longer distances until his pain comes down Pt is able to heel and toe raise without any issue He is able to get about 1/2 normal ROM LAQ and starts to get some hip pain He struggles to go from sit to sidelying and needed some assistance with his legs and trunk. Explained how to roll. Bridging increase pain for the first couple and then pain eased up a little bit PT hurt for the first few and then the pain eased up. Balance/Special Test Scores Oswestry Low Back Score: 39 Goals Goal 1:: I HEP Goal Time Frame: 6-8 Weeks Goal 2:: Be able to perform full ROM bridge with no pain Goal Time Frame: 6-8 Weeks Goal 3:: Be able to walk without AD with longer strides and no pain Goal Time Frame: 6-8 Weeks Goal 4:: Be able to go from sitting to S/L to back without having pain and reverse Goal Time Frame: 6-8 Weeks Goal 5:: Be able to perform full LAQ without having pain Rehabilitation Potential Rehabilitation Potential: Good Anticipated Interventions Patient/Client Instruction: Educate patient on: Condition and Plan of Care For the Purpose of:: To decrease pain, To increase ROM, To improve nutrient delivery to tissue, To improve muscle performance and motor function, To improve ability to perform ADL's, To improve performance and independence with ADL's, To decrease level of supervision to perform tasks, To improve ability of physical actions for home/community/work/leisure, To improve gait and locomotor functions, To improve health of tissue, To decrease soft tissue restriction, To improve endurance, To improve balance and To improve safety with gait Therapeutic Exercise to Include: Strength training, Body mechanics, Postural training, Gait and locomotor training, Neuromotor development, Active ROM, Dynamic Lumbar Stabilization and Scapular Strength/Stabilization For the Purpose of:: To decrease pain, To increase ROM, To improve nutrient delivery to tissue, To improve muscle performance and motor function, To increase tolerance to activity/condition/position, To improve performance and independence with ADL's, To decrease level of supervision to perform tasks, To improve ability of physical actions for home/community/work/leisure, To improve gait and locomotor functions and To improve health of tissue Functional Training to Include: Gait training For the Purpose of:: To improve gait and locomotor functions Text: Thank you for the opportunity to evaluate your patient. For Medicare and Medicare HMO plans, please review the plan of care and approve it. It will need to be FAXED BACK to us at [phone] for Medicare purposes. For Medicare only, by signing this I certify the plan of care. Please let me know if there are questions or concerns regarding this plan of care. Physician Signature: Date:
--- NOTE | 2024-04-04 13:53 | HP.PTREVAL_ITS ---
Re-Evaluation Intro: Dr. Jin Jackson MD, It has been my pleasure to treat QUINTIN ALBRIGHT over the last 7 visits for S/P Lumbar fusion L3/L4 and L4/L5 03/01/24. Please see the progress note below for an update on the physical therapy plan of care! Subjective Subjective: He is doing pretty good. He is back to doing most activities. He uses the rollator when he goes long distances. His leg strength is pretty good. He still takes meds but 80% better. Objective Objective/Function: Stairs: up and down recip with B hand rails...at times does not like to put full foot on step. Gait: Walks with improved stride length and sometimes decreased arm swing Plan Plan Plan: 2X/ week for 8 weeks for neutral spine core stability starting in supine and progressing to sitting and standing when appropriate, (no bending, twisting, or lifting for 3 months), gait training, gait endurance, postural exercises, sit to supine transfers with HEP Balance/Gait/Functional tests Balance/Special Test Scores Oswestry Low Back Score: 19 Goals Goals Goal 1:: I HEP Goal Time Frame: 6-8 Weeks Goal Progress: Goal Met Goal 2:: Be able to perform full ROM bridge with no pain Goal Time Frame: 6-8 Weeks Goal Progress: Progressing Goal 3:: Be able to walk without AD with longer strides and no pain Goal Time Frame: 6-8 Weeks Goal Progress: Goal Met Goal 4:: Be able to go from sitting to S/L to back without having pain and reverse Goal Time Frame: 6-8 Weeks Goal Progress: Goal Met Goal 5:: Be able to perform full LAQ without having pain Goal Progress: Goal Met Anticipated Interventions Anticipated Interventions Patient/Client Instruction: Educate patient on: Condition and Plan of Care For the Purpose of:: To decrease pain, To increase ROM, To improve nutrient delivery to tissue, To improve muscle performance and motor function, To improve ability to perform ADL's, To improve performance and independence with ADL's, To decrease level of supervision to perform tasks, To improve ability of physical actions for home/community/work/leisure, To improve gait and locomotor functions, To improve health of tissue, To decrease soft tissue restriction, To improve endurance, To improve balance and To improve safety with gait Therapeutic Exercise to Include: Strength training, Body mechanics, Postural training, Gait and locomotor training, Neuromotor development, Active ROM, Dynamic Lumbar Stabilization and Scapular Strength/Stabilization For the Purpose of:: To decrease pain, To increase ROM, To improve nutrient delivery to tissue, To improve muscle performance and motor function, To increase tolerance to activity/condition/position, To improve performance and independence with ADL's, To decrease level of supervision to perform tasks, To i mprove ability of physical actions for home/community/work/leisure, To improve gait and locomotor functions and To improve health of tissue Functional Training to Include: Gait training For the Purpose of:: To improve gait and locomotor functions Re-Evaluation Ending Re-evaluation ending: Please do not hesitate to contact me at [phone] by phone or if you have questions or concerns regarding this new plan of care! Sincerely, Kiersten Samuel, MPT
--- NOTE | 2024-06-20 07:55 | HP.PT.NRP ---
Patient Information Patient Information: QUINTIN ALBRIGHT was seen in my office for initial evaluation on 03/10/24. The following Plan of Care was established for this patient: POC Established Initial Frequency: 2x /Week Initial Duration: 2 Months Anticipated Interventions Patient/Client Instruction: Educate patient on: Condition and Plan of Care For the Purpose of:: To decrease pain, To increase ROM, To improve nutrient delivery to tissue, To improve muscle performance and motor function, To improve ability to perform ADL's, To improve performance and independence with ADL's, To decrease level of supervision to perform tasks, To improve ability of physical actions for home/community/work/leisure, To improve gait and locomotor functions, To improve health of tissue, To decrease soft tissue restriction, To improve endurance, To improve balance and To improve safety with gait Therapeutic Exercise to Include: Strength training, Body mechanics, Postural training, Gait and locomotor training, Neuromotor development, Active ROM, Dynamic Lumbar Stabilization and Scapular Strength/Stabilization For the Purpose of:: To decrease pain, To increase ROM, To improve nutrient delivery to tissue, To improve muscle performance and motor function, To increase tolerance to activity/condition/position, To improve performance and independence with ADL's, To decrease level of supervision to perform tasks, To improve ability of physical actions for home/community/work/leisure, To improve gait and locomotor functions and To improve health of tissue Functional Training to Include: Gait training For the Purpose of:: To improve gait and locomotor functions Last Seen Last Seen: This patient was last seen in our office 04/07/24. Pertinent comments regarding their Physical therapy will appear below: [facility] PT At this point I will be discontinuing this patient from physical therapy. I would be happy to see this patient again in the future if found appropriate by the physician. Thank you! Kiersten Samuel, MPT Balance/Gait/Functional tests Balance/Special Test Scores Oswestry Low Back Score: 19
== END 2024-04-07 19:00 | disposition home or self-care (01) ==
LOC: PT 12:30
PROVIDERS: PCP Family Medicine; Referring Provider Orthopaedic Surgery Orthopaedic Surgery of the Spine; Visit Provider Orthopaedic Surgery Orthopaedic Surgery of the Spine
DX: Z98.1 Arthrodesis status (principal)
CPT/HCPCS: 97110; 97162; 97530

== ENCOUNTER → 2024-07-05 | Outpatient (CLI) | payer MEDICARE, SELFPAY ==
[2024-07-05 13:16] LABS: Amphetamine Urine VISTA NEGATIVE (<1000 ng/mL); Barbiturate Urine VISTA NEGATIVE (< 200 ng/mL); Benzodiazepine Urine VISTA NEGATIVE (< 200 ng/mL); Cocaine Urine VISTA NEGATIVE (< 300 ng/mL); Ecstacy Urine VISTA POSITIVE (< 500 ng/mL); Methadone Urine VISTA NEGATIVE (< 300 ng/mL); PCP Urine VISTA NEGATIVE (< 25 ng/mL); THC Urine VISTA NEGATIVE (< 50 ng/mL); Vista UDS pH Range 7
== END | disposition home or self-care (01) ==
LOC: LAB 12:36
PROVIDERS: PCP Family Medicine; Referring Provider Anesthesiology Pain Medicine; Visit Provider Anesthesiology Pain Medicine
DX: F11.20 Opioid dependence, uncomplicated (principal)
CPT/HCPCS: 80307

== ENCOUNTER → 2025-04-12 | Outpatient (CLI) | payer MEDICARE, SELFPAY ==
--- NOTE | 2025-04-12 10:15 | RAD_ITS ---
PROCEDURE: CERV SPINE 2 OR 3 VIEWS 04/12/2025 REASON FOR EXAM: SPONDYLOSIS WITHOUT MYELOPATHY OR RADICULOPATHY, CERVICAL REGION TECHNIQUE: CERV SPINE 2 OR 3 VIEWS COMPARISON: None. FINDINGS: Vertebrae: No acute bony abnormalities. disc spaces: C4-C5 and C5-C6 disc space narrowing with sclerotic endplates. Alignment: Normal alignment. soft tissues: No soft tissue abnormalities. RAD/Cerv Spine 2 or 3 Views IMPRESSION: No acute bony abnormalities. C4-C5 and C5-C6 disc space narrowing. Reading Location: [id number]
== END | disposition home or self-care (01) ==
LOC: RAD 10:13
PROVIDERS: PCP Family Medicine; Referring Provider Anesthesiology Pain Medicine; Visit Provider Anesthesiology Pain Medicine
DX: M47.812 Spondylosis without myelopathy or radiculopathy, cervical region (principal)
CPT/HCPCS: 72040

== ENCOUNTER 2025-07-10 13:01 | Emergency (ER) | payer MEDICARE, SELFPAY ==
[2025-07-10 13:08] VITALS: BP 142/77; PULSE 45; RESP 16; TEMP 36; O2SAT 97; BMI 33.3
[2025-07-10 14:01] VITALS: BP 141/69; PULSE 47; RESP 17; O2SAT 96
[2025-07-10 15:00] VITALS: BP 159/74; PULSE 50; RESP 18; O2SAT 98
[2025-07-10 15:37] VITALS: BP 150/79; PULSE 67; RESP 18; TEMP 36.6; O2SAT 99
== END 2025-07-10 16:10 | disposition home or self-care (01) ==
PROVIDERS: Emergency Provider Emergency Medicine; PCP Family Medicine; Visit Provider Emergency Medicine
DX: S06.0X0A Concussion without loss of consciousness, initial encounter (principal); M48.02 Spinal stenosis, cervical region; I10 Essential (primary) hypertension; S00.33XA Contusion of nose, initial encounter; E78.00 Pure hypercholesterolemia, unspecified; I44.0 Atrioventricular block, first degree; Z87.891 Personal history of nicotine dependence; I44.4 Left anterior fascicular block; M50.30 Other cervical disc degeneration, unspecified cervical region; S00.81XA Abrasion of other part of head, initial encounter; R04.0 Epistaxis; R55 Syncope and collapse; R00.1 Bradycardia, unspecified; K21.9 Gastro-esophageal reflux disease without esophagitis; W18.12XA Fall from or off toilet with subsequent striking against object, initial encounter
CPT/HCPCS: 70450; 72125; 93005; 99284